=== PATIENT | female | born 1955 | race Hispanic/Latino ===

== ENCOUNTER 2017-09-02 21:42 | Emergency (ER) | payer OTHER ==
[2017-09-02] MEDS ORDERED: cloNIDine HCl 0.1 MG TAB ONE (22:45)
[2017-09-02] MEDS ORDERED: MAGNE/ALUM HYDROXD 30 ML UCUP ONE (22:51)
[2017-09-02] MEDS ORDERED: LIDOCAINE VISCOUS 2% SOLN 15 ML UDC ONE (22:52)
[2017-09-02 22:57] LABS: Absolute Monocytes 0.8 K/uL (0.1-1.3); Basophils % 0.9 % (0-1.3); Eosinophils % 3.4 % (0-4.4); Hematocrit 35.1 % (36.0-45.0); Lymphocytes % 29.4 % (15.3-44.8); MCH 32.1 pg (27.0-35.0); MCV 94.7 fL (80-100); Monocytes % 7.7 % (3.3-12.3); RBC Red Blood Cell Count 3.71 M/uL (3.86-4.86)
[2017-09-02 23:05] LABS: Bicarbonate 26 mEq/L (21-31); Glucose Level 147 mg/dL (65-120); Lipase 32 U/L (22-51); Potassium 3.7 mEq/L (3.6-5.0); Sodium Level 141 mEq/L (135-145)
[2017-09-02 23:11] LABS: ALT/SGPT 12 IU/L (10-60); AST/SGOT 18 IU/L (10-42); Albumin 3.4 g/dL (3.2-5.5); Alkaline Phosphatase 89 IU/L (42-121); BUN Blood Urea Nitrogen 15 mg/dL (6-20); Bilirubin Direct < 0.1 mg/dL (0-0.2); Bilirubin Total 0.4 mg/dL (0.3-1.2); Protein, Total 6.8 g/dL (6.0-8.3)
--- NOTE | 2017-09-02 23:43 | ER ---
Nurse's Notes [facility] Name: Dawn Rolle Age: 61 yrs Sex: Female : 1955 Arrival Date: 09/02/2017 Time: 21:43 Bed 20 Private MD: out of town, doctor Diagnosis: Cholelithiasis;Chest pain, unspecified;Gastro-esophageal reflux disease Presentation: 09/02 21:59 Presenting complaint: Patient states: Chest pain that began Friday, having episodes of lp1 chest pain for past 3 days; Pain worse today; Shortness of breath, dizziness. Transition of care: patient was not received from another setting of care. Onset of symptoms was September 02, 2017. Risk Assessment: Do you want to hurt yourself or someone else? Patient reports no desire to harm self or others. Initial Sepsis Screen: Does the patient meet any 2 criteria? No. Patient's initial sepsis screen is negative. Does the patient have a suspected source of infection? No. Patient's initial sepsis screen is negative. Care prior to arrival: None. 21:59 Method Of Arrival: Ambulatory lp1 21:59 Acuity: MECCA 3 lp1 Historical: - Allergies: 22:01 PENICILLINS; lp1 22:01 Codeine; lp1 22:01 Morphine; lp1 - Home Meds: 22:01 None [Active]; lp1 - PMHx: 22:01 Hypertension; Leukemia; lp1 - PSHx: 22:01 None; lp1 - Immunization history:: Adult Immunizations up to date. - Social history:: Smoking status: Patient uses tobacco products, smokes one-half pack cigarettes per day. - Ebola Screening: : No symptoms or risks identified at this time. - Family history:: not pertinent. - Hospitalizations: : No recent hospitalization is reported. Screenin:01 Abuse screen: Denies threats or abuse. Denies injuries from another. Nutritional lp1 screening: No deficits noted. Tuberculosis screening: No symptoms or risk factors identified. Fall Risk None identified. Assessment: 22:15 General: Appears in no apparent distress. uncomfortable, Behavior is calm, cooperative, jd3 appropriate for age. Pain: Complains of pain in chest Pain does not radiate. Quality of pain is described as aching, pressure, Pain began 2-3 days ago. Neuro: Level of Consciousness is awake, alert, obeys commands, Oriented to person, place, time, situation. Cardiovascular: Heart tones S1 S2 present Capillary refill < 3 seconds Patient's skin is warm and dry. Rhythm is regular. Respiratory: Airway is patent Respiratory effort is even, unlabored, Respiratory pattern is regular, symmetrical, Breath sounds are clear bilaterally. GI: Abdomen is round Bowel sounds present X 4 quads. : No signs and/or symptoms were reported regarding the genitourinary system. EENT: No signs and/or symptoms were reported regarding the EENT system. Derm: Skin is intact, Skin is dry, Skin is normal, Skin temperature is warm. Musculoskeletal: Circulation, motion, and sensation intact. Range of motion: intact in all extremities, Swelling present in right ankle and left ankle. 23:15 Reassessment: Patient appears in no apparent distress at this time. Patient and/or jd3 family updated on plan of care and expected duration. Pain level reassessed. Patient is alert, oriented x 3, equal unlabored respirations, skin warm/dry/pink. 09/03 00:20 Reassessment: Patient appears in no apparent distress at this time. Patient and/or jd3 family updated on plan of care and expected duration. Pain level reassessed. Patient is alert, oriented x 3, equal unlabored respirations, skin warm/dry/pink. pt reported understanding of discharge instructions, even and steady gait upon discharge. Patient states feeling better. Vital Signs: 09/02 22:00 BP 174 / 90; Pulse 80; Resp 18; Temp 99.1; Pulse Ox 98% on R/A; Weight 63.5 kg; Height lp1 5 ft. 3 in. (160.02 cm); Pain 9/10; 23:27 BP 147 / 76; Pulse 67; Resp 17 S; Pulse Ox 95% on R/A; jd3 09/03 00:22 BP 156 / 78; Pulse 66; Resp 16 S; Pulse Ox 96% on R/A; Pain 0/10; jd3 09/02 22:00 Body Mass Index 24.80 (63.50 kg, 160.02 cm) lp1 ED Course: 09/02 21:43 Patient arrived in ED. as 21:43 out of town, doctor is Private Physician. as 22:00 Triage completed. lp1 22:00 Arm band placed on right wrist. lp1 22:01 Patient maintains SpO2 saturation greater than 95% on room air. lp1 22:03 Dominic Healy MD is Attending Physician. rn 22:13 Jacob Haque, ROBERTO is Primary Nurse. jd3 22:33 Abdomen Limited In Process Unspecified. EDMS 22:35 Inserted saline lock: 20 gauge in right antecubital area, using aseptic technique. jd3 Blood collected. 22:40 X-ray completed. Portable x-ray completed in exam room. Patient tolerated procedure bb2 well. 22:41 XRAY Chest (1 view) In Process Unspecified. EDMS 23:27 Patient has correct armband on for positive identification. clinical research monitor on. Pulse jd3 ox on. NIBP on. 23:43 Reymundo Fuentes MD is Referral Physician. rn 09/03 00:24 No provider procedures requiring assistance completed. IV discontinued, intact, jd3 bleeding controlled, No redness/swelling at site. Pressure dressing applied. Administered Medications: 09/02 22:57 Drug: cloNIDine 0.1 mg Route: PO; jd3 09/03 00:25 Follow up: Response: No adverse reaction jd3 09/02 22:57 Drug: GI Cocktail without - (Maalox Suspension 30 ml, Lidocaine Liquid 2 % 15 jd3 ml) Route: PO; 09/03 00:26 Follow up: Response: No adverse reaction jd3 00:26 Follow up: Response: Pain is decreased jd3 Outcome: 09/02 23:43 Discharge ordered by . rn 09/03 00:24 Discharged to home ambulatory, with family. jd3 Condition: stable Discharge instructions given to patient, family, Instructed on discharge instructions, follow up and referral plans. Demonstrated understanding of instructions, follow-up care. 00:26 Patient left the ED. jd3 Signatures: Dispatcher [employer] Amisha Montenegro Roman, MD MD rn Pena, Laura, RN RN lp1 Jacob Haque, ROBERTO RN jd3 Isabelle Colin bb2
--- NOTE | 2017-09-02 23:44 | EDPHYS ---
Physician Documentation [facility] Name: Dawn Rolle Age: 61 yrs Sex: Female : 1955 Arrival Date: 09/02/2017 Time: 21:43 Bed 20 Private MD: out of town, doctor ED Physician Dominic Healy HPI: 09/02 22:39 This 61 yrs old Female presents to ER via Ambulatory with complaints of Chest rn Pain - x3 days. 22:39 The patient or guardian reports chest pain that is located primarily in the substernal rn area, epigastric area. Onset: 3 day(s) ago. The pain does not radiate. Associated signs and symptoms: Pertinent positives: abdominal pain, Pertinent negatives: cough, diaphoresis, dizziness, headache, lower extremity pain, lower extremity swelling, lightheadedness, nausea, near syncope, palpitations, shortness of breath, syncope, vomiting. The chest pain is described as dull, causing indigestion. Duration: The patient or guardian reports multiple episodes, that are intermittent, the episodes last approximately 1 minute(s). Modifying factors: The symptoms are alleviated by nothing. the symptoms are aggravated by swallowing. Severity of pain: At its worst the pain was moderate in the emergency department the pain has improved. The patient has experienced a previous episode. The patient has not recently seen a physician. Reports 3 days of intermittent chest pain, substernal/epigastric, worse when swallowing but happens other times as well, lasts for about 1 minute, no other radiation, no vomiting/diarrhea. Stopped taking her BP meds. . Historical: - Allergies: 22:01 PENICILLINS; lp1 22:01 Codeine; lp1 22:01 Morphine; lp1 - Home Meds: 22:01 None [Active]; lp1 - PMHx: 22:01 Hypertension; Leukemia; lp1 - PSHx: 22:01 None; lp1 - Immunization history:: Adult Immunizations up to date. - Social history:: Smoking status: Patient uses tobacco products, smokes one-half pack cigarettes per day. - Ebola Screening: : No symptoms or risks identified at this time. - Family history:: not pertinent. - Hospitalizations: : No recent hospitalization is reported. ROS: 22:39 Constitutional: Negative for fever, chills, and weight loss, Eyes: Negative for injury, rn pain, redness, and discharge, Neck: Negative for injury, pain, and swelling, Cardiovascular: Negative for palpitations, and edema, Respiratory: Negative for shortness of breath, cough, wheezing, and pleuritic chest pain, Abdomen/GI: Negative for nausea, vomiting, diarrhea, and constipation, MS/Extremity: Negative for injury and deformity, Skin: Negative for injury, rash, and discoloration, Neuro: Negative for headache, weakness, numbness, tingling, and seizure. Exam: 22:39 Constitutional: This is a well developed, well nourished patient who is awake, alert, rn and in no acute distress. Head/Face: Normocephalic, atraumatic. Eyes: Pupils equal round and reactive to light, extra-ocular motions intact. Lids and lashes normal. Conjunctiva and sclera are non-icteric and not injected. Cornea within normal limits. Periorbital areas with no swelling, redness, or edema. Neck: Trachea midline, no thyromegaly or masses palpated, and no cervical lymphadenopathy. Supple, full range of motion without nuchal rigidity, or vertebral point tenderness. No Meningismus. Cardiovascular: Regular rate and rhythm with a normal S1 and S2. No gallops, murmurs, or rubs. Normal PMI, no JVD. No pulse deficits. Respiratory: Lungs have equal breath sounds bilaterally, clear to auscultation and percussion. No rales, rhonchi or wheezes noted. No increased work of breathing, no retractions or nasal flaring. Abdomen/GI: Soft, non-tender, with normal bowel sounds. No distension or tympany. No guarding or rebound. No evidence of tenderness throughout. MS/ Extremity: Pulses equal, no cyanosis. Neurovascular intact. Full, normal range of motion. Equal circumference. Neuro: Awake and alert, GCS 15, oriented to person, place, time, and situation. Cranial nerves II-XII grossly intact. Motor strength 5/5 in all extremities. Sensory grossly intact. Cerebellar exam normal. Vital Signs: 22:00 BP 174 / 90; Pulse 80; Resp 18; Temp 99.1; Pulse Ox 98% on R/A; Weight 63.5 kg; Height lp1 5 ft. 3 in. (160.02 cm); Pain 9/10; 23:27 BP 147 / 76; Pulse 67; Resp 17 S; Pulse Ox 95% on R/A; jd3 09/03 00:22 BP 156 / 78; Pulse 66; Resp 16 S; Pulse Ox 96% on R/A; Pain 0/10; jd3 09/02 22:00 Body Mass Index 24.80 (63.50 kg, 160.02 cm) lp1 MDM: 09/02 22:03 Patient medically screened. rn 23:41 Differential diagnosis: acute myocardial infarction, acute pericarditis, anxiety, rn coronary artery disease cholecystitis, Cholelithiasis costochondritis, gastritis, gastroesophageal reflux disease (GERD), pancreatitis, peptic ulcer disease, pleurisy, pneumonia, pneumothorax. Data reviewed: vital signs, nurses notes, lab test result(s), EKG, radiologic studies, plain films, ultrasound, and as a result, I will discharge patient. Counseling: I had a detailed discussion with the patient and/or guardian regarding: the historical points, exam findings, and any diagnostic results supporting the discharge/admit diagnosis, lab results, radiology results, the need for outpatient follow up, to return to the emergency department if symptoms worsen or persist or if there are any questions or concerns that arise at home. Response to treatment: the patient's symptoms have markedly improved after treatment, and as a result, I will discharge patient. Special discussion: I discussed with the patient/guardian in detail that at this point there is no indication for admission to the hospital. It is understood, however, that if the symptoms persist or worsen the patient needs to return immediately for re-evaluation. Based on the history and exam findings, there is no indication for further emergent testing or inpatient evaluation. I discussed with the patient/guardian the need to see the shoe stitcher for further evaluation of the symptoms. I discussed with the patient/guardian the need to see the general surgeon for further evaluation of the symptoms. ED course: Pt improved, trop normal, ecg without ischemia or acute event, u/s shows large gallstone without signs of cholecystitis, normal LFT/Lipase, will dc home with OTC antacids, and GI and gen surg f/u. . 09/02 22:10 Order name: Basic Metabolic Panel; Complete Time: 23: rn 09/02 22:10 Order name: BNP; Complete Time: : rn 09/02 22:10 Order name: CBC with Diff; Complete Time: 23:19 rn 09/02 22:10 Order name: LFT's; Complete Time: 23:19 rn 09/02 22:10 Order name: Troponin (emerg Dept Use Only); Complete Time: 23:19 rn 09/02 22:10 Order name: Lipase; Complete Time: 23:19 rn 09/02 22:10 Order name: XRAY Chest (1 view) rn 09/02 22:10 Order name: EKG; Complete Time: 22:11 rn 09/02 22:10 Order name: Cardiac monitoring; Complete Time: 22:27 rn 09/02 22:10 Order name: EKG - Nurse/Tech; Complete Time: 22:39 rn 09/02 22:10 Order name: IV Saline Lock; Complete Time: :39 rn 09/02 22:11 Order name: US Abdomen Limited rn 09/02 22:10 Order name: Labs collected and sent; Complete Time: 22:39 rn 09/02 22:10 Order name: O2 Per Protocol; Complete Time: : rn 09/02 22:10 Order name: O2 Sat Monitoring; Complete Time: 22:27 rn Administered Medications: 22:57 Drug: cloNIDine 0.1 mg Route: PO; jd3 09/03 00:25 Follow up: Response: No adverse reaction j 09/02 22:57 Drug: GI Cocktail without - (Maalox Suspension 30 ml, Lidocaine Liquid 2 % 15 jd3 ml) Route: PO; 09/03 00:26 Follow up: Response: No adverse reaction jd3 00:26 Follow up: Response: Pain is decreased jd3 Disposition: 09/02/17 23:43 Discharged to Home. Impression: Cholelithiasis, Chest pain, unspecified, Gastro-esophageal reflux disease. - Condition is Stable. - Discharge Instructions: Nonspecific Chest Pain, Gastroesophageal Reflux Disease, Adult, Cholelithiasis. - Medication Reconciliation Form, Thank You Letter, Antibiotic Education, Prescription Opioid Use form. - Follow up: Reymundo Fuentes MD; When: As needed; Reason: Recheck today's complaints, Re-evaluation by your physician. - Problem is new. - Symptoms have improved. Signatures: Dispatcher [employer] EDMS Dominic Healy MD MD rn Pena, Laura, RN RN lp1 Haque, Jacob, RN RN jd3 Corrections: (The following items were deleted from the chart) 00:26 09/02 23:43 09/02/2017 23:43 Discharged to Home. Impression: Cholelithiasis; Chest jd3 pain, unspecified; Gastro-esophageal reflux disease. Condition is Stable. Forms are Medication Reconciliation Form, Thank You Letter, Antibiotic Education, Prescription Opioid Use. Follow up: Reymundo Fuentes; When: As needed; Reason: Recheck today's complaints, Re-evaluation by your physician. Problem is new. Symptoms have improved. rn
--- NOTE | 2017-09-03 07:34 | RAD REPORT ---
EXAM DESCRIPTION: US - Abdomen Exam Limited - 09/02/2017 10:32 pm CLINICAL HISTORY: Abdominal pain. COMPARISON: None. FINDINGS: The gallbladder is contracted containing stones. The gallbladder wall is not thickened. The biliary tree is normal caliber. IMPRESSION: Cholelithiasis without evidence of cholecystitis
--- NOTE | 2017-09-03 07:42 | EKG ---
Test Date: 2017-09-02 Test Time: 22:36:18 Gut Sorter: MEASUREMENT RESULTS: Intervals: Rate: 75 [place]: 96 QRSD: 86 QT: 392 QTc: 437 Angier: P: 31 NY: 96 QRS: 58 T: 44 INTERPRETIVE STATEMENTS: Sinus rhythm with short [place] Minimal voltage criteria for LVH, may be normal variant Nonspecific ST abnormality Abnormal ECG No previous ECG available for comparison Electronically Signed On 09-03-17 07:41:41 CDT by Luciano Dubon
--- NOTE | 2017-09-03 07:47 | RAD REPORT ---
EXAM DESCRIPTION: Mary Single View09/02/2017 10:43 pm CLINICAL HISTORY: Chest pain COMPARISON: 2013 FINDINGS: The lungs appear clear of acute infiltrate. The heart is normal size IMPRESSION: No acute abnormalities displayed
== END 2017-09-03 00:26 | disposition home or self-care (01) ==
LOC: ER 21:42
DX: K21.9 Gastro-esophageal reflux disease without esophagitis (principal); K80.20 Calculus of gallbladder without cholecystitis without obstruction; I10 Essential (primary) hypertension; F17.210 Nicotine dependence, cigarettes, uncomplicated; Z88.0 Allergy status to penicillin; Z88.5 Allergy status to narcotic agent
CPT/HCPCS: 36415; 71045; 76705; 80048; 80076; 83690; 83880; 84484; 85025; 93005; 99285

== ENCOUNTER 2017-09-22 10:10 | Day surgery (SDC) | payer OTHER ==
[2017-09-18 16:21] LABS: Absolute Lymphocytes (CBC) 2.8 K/uL (0.7-4.9); Absolute Monocytes 0.6 K/uL (0.1-1.3); Absolute Neutrophil 5.3 K/uL (1.8-8.0); Hematocrit 39.7 % (36.0-45.0); Lymphocytes % 31.1 % (15.3-44.8); MCH 31.6 pg (27.0-35.0); MCV 94.2 fL (80-100); MPV 10.2 fL (7.6-11.3); Monocytes % 6.2 % (3.3-12.3); RBC Red Blood Cell Count 4.22 M/uL (3.86-4.86)
[2017-09-18 16:37] LABS: Potassium 4.4 mEq/L (3.6-5.0)
[2017-09-18 16:43] LABS: ALT/SGPT 15 IU/L (10-60); AST/SGOT 22 IU/L (10-42); Alkaline Phosphatase 88 IU/L (42-121); Amylase Level 87 U/L (28-100); Bilirubin Direct < 0.1 mg/dL (0-0.2); Bilirubin Total 0.2 mg/dL (0.3-1.2); Lipase 40 U/L (22-51); Protein, Total 7.3 g/dL (6.0-8.3)
[2017-09-22] MEDS ORDERED: Ringers Lactate 1,000 ML IV ONE (10:33)
[2017-09-22] MEDS: BUPIVACAINE 0.5% Inj,MDV 50 mL VIAL ONE ×2 (11:21→12:17)
[2017-09-22] MEDS ORDERED: FENTANYL CITR 250 MCG/5 ML ONE (11:41)
[2017-09-22] MEDS ORDERED: MIDAZOLAM HCL 2 MG/2 ML INJ ONE (11:41)
[2017-09-22] MEDS ORDERED: ONDANSETRON HCL 40 MG/20 ML VIAL ONE (11:41)
[2017-09-22] MEDS ORDERED: LIDOCAINE 2% MPF 5 ML VIAL ONE (11:41)
[2017-09-22] MEDS ORDERED: ROCURONIUM 50 MG/5 ML VIAL IV ONE (11:41)
[2017-09-22] MEDS ORDERED: PROPOFOL 200 MG/20 ML VIAL IV ONE (11:41)
[2017-09-22] MEDS ORDERED: CIPROFLOXACIN 400mg IV 400 MG/200 ML BAG IV ONE (11:50)
[2017-09-22] MEDS ORDERED: GLYCOPYRROLATE 0.2 MG/ML SYR ONE ×2 (12:23→12:38)
[2017-09-22] MEDS ORDERED: KETOROLAC 30 MG/ML INJ ONE (12:30)
[2017-09-22] MEDS ORDERED: NEOSTIGMINE 1 MG/ML -5 ML SYRINGE ONE (12:38)
[2017-09-22] MEDS ORDERED: Mastisol Adhesive Liq ONE (12:39)
--- NOTE | 2017-09-22 13:05 | P.BOP ---
Preoperative diagnosis: acute cholecystitis, symptomatic cholelithiasis, UTI Postoperative diagnosis: same Primary procedure: Laparoscopic cholecystectomy Mainframe Consultant: Celi Singleton) Estimated blood loss: <10cc Specimen: gb Findings: as above Anesthesia: General Transferred to: Recovery Room Condition: Good
[2017-09-22] MEDS: MEPERIDINE HCL 25 MG/0.5 ML ONE ×2 (13:24→13:29)
[2017-09-22] MEDS ORDERED: TRAMADOL 37.5mg/APAP 325mg PER TAB ONE (14:05)
--- NOTE | 2017-09-23 00:32 | OP ---
Date of Procedure: 09/22/2017 Surgeon: Adryan Lantigua MD Gore Seamer: NICK Roberts. Preoperative Diagnoses: 1.Acute cholecystitis. 2.Symptomatic cholelithiasis. 3.Urinary tract infection. 4.Chronic creatinine elevation. Postoperative Diagnoses: 1.Acute cholecystitis. 2.Symptomatic cholelithiasis. 3.Urinary tract infection. 4.Chronic creatinine elevation. Procedure Performed: Laparoscopic cholecystectomy. Estimated Blood Loss: Less than 10 cc. Specimen: Gallbladder. Findings: As above. Anesthesia: General plus local. Indications: This is a case of a 61-year-old patient with multiple medical problems. One of them paulson ppened to be also acute cholecystitis with symptomatic cholelithiasis, with many right upper quadrant attacks. So, we offered her laparoscopic, possible open cholecystectomy with benefits, alternatives , and risks including, but not limited to infection, bleeding, damage to adjacent structures, anesthe soumya complications, choledocholithiasis, bile leak, pancreatitis, NC, and even . She also unders tands this may not relieve any symptoms. She might need more than one surgical intervention. As par t of the workup, we also found the patient to have a UTI and also increased creatinine, and I encoura ged her once again as soon as possible to follow with her primary doctor to try to address and unders tand the reasons for it. She understands. She signed a consent. Description Of Procedure: The patient was brought to the operating room, placed in supine position. Anesthesia was done without complication. Abdominal area was prepped and draped in a sterile fashio n. A time-out was called. An incision was made in the infraumbilical region. Incision was carried down to fascia, which was opened under direct vision. Peritoneum was encountered, opened under direc t vision. Vicryl #1 was placed inside the fascia. Francie trocar was carefully introduced. Pneumope ritoneum was obtained. I placed 3 more trocars, 5 mm each one of them, in the right upper quadrant u nder direct visualization. This allowed me to put a grasper in the fundus of the gallbladder, anothe r grasper in the infundibulum, retracted the gallbladder in an inferolateral fashion exposing the tri angle of Calot. The cystic duct and cystic artery were clearly isolated free circumferentially, and a connection between those and the gallbladder was clearly identified. I proceeded to ligate those b y using at least 3 clips proximal, 1 clip distal, ligation in middle. Same was done with the cystic artery. There was a tiny branch of the cystic artery also there. It was also ligated. The hepatic artery was identified and protected at all times. The common bile duct was protected at all times. Gallbladder was removed from the liver using Bovie cauterizer and removed from abdominal cavity using EndoCatch through the umbilical incision. The area was inspected once again. Clips were intact. N o bile leak. No bleeding. Gallbladder fossa with no bleeding. At that moment, I proceeded to remov e the trocars under direct vision, deflated pneumoperitoneum, closed the fascia with #1 Vicryl, irrig ated subcutaneous tissue, closed that with 3-0 chromic, and the skin was closed in a subcuticular fas hion with Steri-Strips on top. Sponge counts and instrument counts were correct. The patient tolera meenakshi the procedure well. The patient was sent to recovery in stable condition. TONEY/CUAUHTEMOC Voice ID: [id number] Report ID: [id number]
--- NOTE | 2017-09-23 00:47 | DS ---
Date of Discharge: 09/22/2017 Diagnoses: 1.Acute cholecystitis. 2.Symptomatic cholelithiasis. 3.Urinary tract infection. 4.Increased renal creatinine. Procedure: Laparoscopic cholecystectomy. Disposition: Home. Activity: As tolerated. No heavy lifting. Followup: Follow up in my office in 1 week. Call for appointment at [phone]. Keep area dry for 48 hours, then may shower. Keep Steri-Strips intact. Medications: Ultracet q.4 hours p.r.n. pain. She was encouraged to follow up with her primary doctor for her UTI and creatinine elevation that we noticed . She understood. TONEY/CUAUHTEMOC Voice ID: [id number] Report ID: [id number]
== END 2017-09-22 15:21 | disposition home or self-care (01) ==
LOC: OR 10:10
PROVIDERS: ATTEND Surgery
PROC: 0FT44ZZ Resection of Gallbladder, Percutaneous Endoscopic Approach (ICD-10-PCS; principal; 2017-09-22 11:45)
DX: K80.12 Calculus of gallbladder with acute and chronic cholecystitis without obstruction (principal); N39.0 Urinary tract infection, site not specified; R94.4 Abnormal results of kidney function studies; I10 Essential (primary) hypertension; K21.9 Gastro-esophageal reflux disease without esophagitis; F17.200 Nicotine dependence, unspecified, uncomplicated; Z88.0 Allergy status to penicillin; Z88.6 Allergy status to analgesic agent; Z80.9 Family history of malignant neoplasm, unspecified; Z83.3 Family history of diabetes mellitus; Z82.49 Family history of ischemic heart disease and other diseases of the circulatory system
CPT/HCPCS: 36415; 80048; 80076; 82150; 83690; 85025; 88304; 93005; J0744; J2175; J2250; J2405; J2710

== ENCOUNTER 2018-03-18 08:44 | Day surgery (SDC) | payer OTHER ==
[2018-03-18] MEDS ORDERED: NA CHLORIDE 0.9% 1,000 ML ONE (09:27)
[2018-03-18] MEDS ORDERED: MIDAZOLAM HCL 2 MG/2 ML INJ ONE (09:58)
[2018-03-18] MEDS ORDERED: FENTANYL CITR 100 MCG/2 ML ONE (09:58)
[2018-03-18 10:02] LABS: Potassium 5.2 mmol/L (3.5-5.1)
--- NOTE | 2018-03-18 10:48 | RAD REPORT ---
EXAM DESCRIPTION: US - Biopsy Renal - 03/18/2018 10:17 am CLINICAL HISTORY: HEMATURIA COMPARISON: No comparisons FINDINGS: Preoperative diagnosis: Hematuria, flank pain. Post operative diagnosis: Same. Conscious Sedation: IV conscious sedation for 45 minutes utilizing fentanyl and midazolam was utilize d, with nursing personnel monitoring. Fluoroscopy time: None Contrast used: None Estimated blood loss: Minimal Specimens:3 x 18 gauge core 2 cm samples. The left flank was prepped and draped in the usual sterile fashion. 1% lidocaine was infiltrated into the subcutaneous tissues for local anesthesia. Real time ultrasound scanning of the left kidney demo nstrated suitable sonographic window to the inferior pole. Under ultrasound guidance, using a 18-gaug e, 16 cm long, 2 cm throw core biopsy gun, 3 specimens were obtained of this lesion and sent to patho logy for evaluation. There were no complications. IMPRESSION: Successful ultrasound-guided nonfocal left renal biopsy. 45 minutes of IV conscious sedation utilizing nursing personnel monitoring.
[2018-03-18] MEDS ORDERED: TRAMADOL HCL 50 MG TAB ONE (11:19)
== END 2018-03-18 13:20 | disposition home or self-care (01) ==
LOC: DS 08:44
PROVIDERS: ATTEND Internal Medicine Nephrology
PROC: 0TB13ZX Excision of Left Kidney, Percutaneous Approach, Diagnostic (ICD-10-PCS; principal; 2018-03-18)
PROC: BT42ZZZ Ultrasonography of Left Kidney (ICD-10-PCS; 2018-03-18)
DX: N04.9 Nephrotic syndrome with unspecified morphologic changes (principal); R31.9 Hematuria, unspecified; N26.9 Renal sclerosis, unspecified; N05.8 Unspecified nephritic syndrome with other morphologic changes; N19 Unspecified kidney failure
CPT/HCPCS: 36415; 50200; 80048; 88300; 88305; J2250; J3010; J7030

== ENCOUNTER 2018-09-11 12:19 | Emergency (ER) | payer OTHER ==
[2018-09-11 13:18] LABS: Absolute Lymphocytes (CBC) 2.7 K/uL (0.7-4.9); Absolute Monocytes 0.6 K/uL (0.1-1.3); Absolute Neutrophil 3.3 K/uL (1.8-8.0); Basophils % 1.1 % (0-1.3); Eosinophils % 3.8 % (0-4.4); Hematocrit 33.6 % (36.0-45.0); Lymphocytes % 39.2 % (15.3-44.8); MPV 9.7 fL (7.6-11.3); Monocytes % 8.4 % (3.3-12.3); RBC Red Blood Cell Count 3.41 M/uL (3.86-4.86)
[2018-09-11 13:28] LABS: Albumin 3.7 g/dL (3.4-5.0); Bilirubin Direct 0.1 mg/dL (0-0.2); Bilirubin Total 0.4 mg/dL (0.2-1.0); Potassium 5.1 mmol/L (3.5-5.1); Protein, Total 7.4 g/dL (6.4-8.2)
[2018-09-11 13:35] LABS: Urine Blood 2+ (NEG); Urine Glucose TRACE (NEG); Urine Protein 3+ (NEG); Urine pH 5.5 (5.0-7.0)
--- NOTE | 2018-09-11 13:54 | ER ---
Nurse's Notes [facility] Name: Dawn Rolle Age: 62 yrs Sex: Female : 1955 Arrival Date: 09/11/2018 Time: 12:23 Bed 23 Private MD: Diagnosis: Person with feared health complaint in whom no diagnosis is made Presentation: 09/11 12:29 Presenting complaint: Patient states: Sent by PCP for protein in urine and high ss potassium. Pt reports she had outpatient labs obtained this morning. Transition of care: patient was not received from another setting of care. Onset of symptoms is unknown. Risk Assessment: Do you want to hurt yourself or someone else? Patient reports no desire to harm self or others. Initial Sepsis Screen: Does the patient meet any 2 criteria? No. Patient's initial sepsis screen is negative. Does the patient have a suspected source of infection? No. Patient's initial sepsis screen is negative. Care prior to arrival: None. 12:29 Method Of Arrival: Ambulatory ss 12:29 Acuity: MECCA 2 ss Historical: - Allergies: 12:31 PENICILLINS; ss 12:31 Morphine; ss 12:31 Codeine; ss - PMHx: 12:31 Hypertension; Leukemia; Kidney stones; ss - PSHx: 12:31 Cholecystectomy; ss - Immunization history:: Adult Immunizations up to date. - Social history:: Smoking status: Patient uses tobacco products, smokes one-half pack cigarettes per day. - Ebola Screening: : Patient denies exposure to infectious person Patient denies travel to an Ebola-affected area in the 21 days before illness onset. Screenin:00 Abuse screen: Denies threats or abuse. Denies injuries from another. Nutritional ca1 screening: No deficits noted. Tuberculosis screening: No symptoms or risk factors identified. Fall Risk None identified. Assessment: 13:00 General: Appears in no apparent distress. comfortable, Behavior is calm, cooperative, ca1 appropriate for age. Pain: Denies pain. Neuro: Level of Consciousness is awake, alert, obeys commands, Oriented to person, place, time, situation. Cardiovascular: Heart tones S1 S2 present Capillary refill < 3 seconds Patient's skin is warm and dry. Rhythm is sinus rhythm. Respiratory: Airway is patent Respiratory effort is even, unlabored, Respiratory pattern is regular, symmetrical, Breath sounds are clear bilaterally. GI: Abdomen is round non-distended, Bowel sounds present X 4 quads. Abd is soft and non tender X 4 quads. : No deficits noted. No signs and/or symptoms were reported regarding the genitourinary system. Urine is clear. EENT: No deficits noted. No signs and/or symptoms were reported regarding the EENT system. Derm: Skin is intact, is healthy with good turgor, Skin is pink, warm \T\ dry. Musculoskeletal: Circulation, motion, and sensation intact. Capillary refill < 3 seconds, Range of motion: intact in all extremities. 14:00 Reassessment: Patient appears in no apparent distress at this time. Patient and/or ca1 family updated on plan of care and expected duration. Pain level reassessed. Patient is alert, oriented x 3, equal unlabored respirations, skin warm/dry/pink. 14:31 Reassessment: Patient appears in no apparent distress at this time. Patient is alert, ca1 oriented x 3, equal unlabored respirations, skin warm/dry/pink. Family at bedside. Vital Signs: 12:31 BP 157 / 82; Pulse 82; Resp 16; Temp 97.9(O); Pulse Ox 97% on R/A; Weight 63.05 kg; ss Height 5 ft. 3 in. (160.02 cm); Pain 0/10; 13:00 BP 169 / 79; Pulse 79; Resp 19 S; Temp 98(O); Pulse Ox 97% on R/A; ca1 13:45 BP 163 / 82; Pulse 75; Resp 15 S; Pulse Ox 98% on R/A; ca1 14:31 BP 152 / 69; Pulse 68; Resp 16 S; Temp 98.1(O); Pulse Ox 99% on R/A; ca1 12:31 Body Mass Index 24.62 (63.05 kg, 160.02 cm) ED Course: 12:23 Patient arrived in ED. mr 12:30 Triage completed. ss 12:31 Arm band placed on right wrist. ss 12:33 Abdirashid Queen NP is PHCP. pm1 12:33 Dominic Healy MD is Attending Physician. pm1 12:53 Idalmis Moore RN is Primary Nurse. ca1 12:59 EKG done, by electrical engineering technologist. reviewed by Abdirashid Queen NP. at1 13:00 Patient has correct armband on for positive identification. Placed in gown. Bed in low ca1 position. Call light in reach. Side rails up X 1. technical support specialist on. Pulse ox on. NIBP on. Warm blanket given. 13:04 No provider procedures requiring assistance completed. Inserted saline lock: 20 gauge ca1 in right forearm, using aseptic technique. Blood collected. 14:32 IV discontinued, intact, bleeding controlled, No redness/swelling at site. Pressure ca1 dressing applied. Administered Medications: No medications were administered Outcome: 13:53 Discharge ordered by MD. pm1 14:32 Discharged to home ambulatory, with family. ca1 14:32 Condition: stable 14:32 Discharge instructions given to patient, Instructed on discharge instructions, follow up and referral plans. Demonstrated understanding of instructions, follow-up care, Copies of testes given. Instructed on high on K food to avoid as of this time. Verbalized understanding of instructions. 14:33 Patient left the ED. ca1 Signatures: Sallie Pickering Shelby, RN RN ss Perla Rodriguez, housing inspector EKG Tat1 Abdirashid Queen NP BAG BUNDLER pm1 Idalmis Moore RN RN ca1
--- NOTE | 2018-09-11 13:54 | EDPHYS ---
Physician Documentation [facility] Name: Dawn Rolle Age: 62 yrs Sex: Female : 1955 Arrival Date: 09/11/2018 Time: 12:23 Bed 23 Private MD: ED Physician Dominic Healy HPI: 09/11 12:52 This 62 yrs old Female presents to ER via Ambulatory with complaints of pm1 Abnormal Lab Results. 12:52 Patient had labs drawn today and was instructed to report to the ER for evaluation and pm1 treatment due to elevated K and protein in her urine. Patient without any complaints or symptoms. Onset: The symptoms/episode began/occurred today. Severity of symptoms: Pain is currently a 0 / 10. The patient has not experienced similar symptoms in the past. The patient has been recently seen by a physician: Dr. Mejias. Historical: - Allergies: 12:31 PENICILLINS; ss 12:31 Morphine; ss 12:31 Codeine; ss - PMHx: 12:31 Hypertension; Leukemia; Kidney stones; ss - PSHx: 12:31 Cholecystectomy; ss - Immunization history:: Adult Immunizations up to date. - Social history:: Smoking status: Patient uses tobacco products, smokes one-half pack cigarettes per day. - Ebola Screening: : Patient denies exposure to infectious person Patient denies travel to an Ebola-affected area in the 21 days before illness onset. ROS: 12:52 Constitutional: Negative for fever, chills, and weight loss, Eyes: Negative for injury, pm1 pain, redness, and discharge, ENT: Negative for injury, pain, and discharge, Neck: Negative for injury, pain, and swelling, Cardiovascular: Negative for chest pain, palpitations, and edema, Respiratory: Negative for shortness of breath, cough, wheezing, and pleuritic chest pain, Abdomen/GI: Negative for abdominal pain, nausea, vomiting, diarrhea, and constipation, Back: Negative for injury and pain, : Negative for injury, bleeding, discharge, and swelling, MS/Extremity: Negative for injury and deformity, Skin: Negative for injury, rash, and discoloration, Neuro: Negative for headache, weakness, numbness, tingling, and seizure. Exam: 12:52 Constitutional: This is a well developed, well nourished patient who is awake, alert, pm1 and in no acute distress. Head/Face: Normocephalic, atraumatic. Eyes: Pupils equal round and reactive to light, extra-ocular motions intact. Lids and lashes normal. Conjunctiva and sclera are non-icteric and not injected. Cornea within normal limits. Periorbital areas with no swelling, redness, or edema. ENT: Nares patent. No nasal discharge, no septal abnormalities noted. Tympanic membranes are normal and external auditory canals are clear. Oropharynx with no redness, swelling, or masses, exudates, or evidence of obstruction, uvula midline. Mucous membranes moist. Neck: Trachea midline, no thyromegaly or masses palpated, and no cervical lymphadenopathy. Supple, full range of motion without nuchal rigidity, or vertebral point tenderness. No Meningismus. Chest/axilla: Normal chest wall appearance and motion. Nontender with no deformity. No lesions are appreciated. Cardiovascular: Regular rate and rhythm with a normal S1 and S2. No gallops, murmurs, or rubs. Normal PMI, no JVD. No pulse deficits. Respiratory: Lungs have equal breath sounds bilaterally, clear to auscultation and percussion. No rales, rhonchi or wheezes noted. No increased work of breathing, no retractions or nasal flaring. Abdomen/GI: Soft, non-tender, with normal bowel sounds. No distension or tympany. No guarding or rebound. No evidence of tenderness throughout. Back: No spinal tenderness. No costovertebral tenderness. Full range of motion. Skin: Warm, dry with normal turgor. Normal color with no rashes, no lesions, and no evidence of cellulitis. MS/ Extremity: Pulses equal, no cyanosis. Neurovascular intact. Full, normal range of motion. 12:52 Neuro: Orientation: is normal, Motor: is normal, moves all fours, Sensation: is normal, no obvious gross deficits, Gait: is steady, at a normal pace, without difficulty. Vital Signs: 12:31 BP 157 / 82; Pulse 82; Resp 16; Temp 97.9(O); Pulse Ox 97% on R/A; Weight 63.05 kg; ss Height 5 ft. 3 in. (160.02 cm); Pain 0/10; 13:00 BP 169 / 79; Pulse 79; Resp 19 S; Temp 98(O); Pulse Ox 97% on R/A; ca1 13:45 BP 163 / 82; Pulse 75; Resp 15 S; Pulse Ox 98% on R/A; ca1 14:31 BP 152 / 69; Pulse 68; Resp 16 S; Temp 98.1(O); Pulse Ox 99% on R/A; ca1 12:31 Body Mass Index 24.62 (63.05 kg, 160.02 cm) MDM: 12:33 Patient medically screened. pm1 13:52 Data reviewed: vital signs. Data interpreted: Pulse oximetry: on room air is 97 %. pm1 Interpretation: normal. Counseling: I had a detailed discussion with the patient and/or guardian regarding: the historical points, exam findings, and any diagnostic results supporting the discharge/admit diagnosis, lab results, the need for outpatient follow up, to return to the emergency department if symptoms worsen or persist or if there are any questions or concerns that arise at home. 14:01 Physician consultation: Nephrology Claudia was called at 13:55, was contacted at pm1 14:00, regarding patient's condition, Potassium is high end of normal. Renal function at baseline. Possibly due to ARB. He recommends patient hold her ARB, losartan, until follow up in the office in 1-2 weeks for repeat labs and reevaluation. Covering for Dr. Mejias. 09/11 12:45 Order name: CBC with Diff; Complete Time: 13:46 pm09/11 12:45 Order name: BMP; Complete Time: 13:46 pm1 09/11 12:36 Order name: EKG; Complete Time: 12:37 09/11 12:36 Order name: EKG - Nurse/Tech; Complete Time: 13:09 09/11 12:45 Order name: Hepatic Function; Complete Time: 13:46 pm09/11 13:16 Order name: Urine Dipstick--Ancillary (enter results); Complete Time: 13:46 09/11 12:45 Order name: Urine Dipstick-Ancillary (obtain specimen); Complete Time: 13:09 pm09/11 12:45 Order name: IV Saline Lock; Complete Time: 13:09 pm1 EC:51 Rate is 66 beats/min. Rhythm is regular. QRS [place] is Normal. No Q waves. T waves are pm1 Normal. No ST changes noted. Clinical impression: Normal ECG. Administered Medications: No medications were administered Disposition: 15:12 Co-signature as Attending Physician, Dominic Healy MD. rn Disposition: 09/11/18 13:53 Discharged to Home. Impression: Person with feared health complaint in whom no diagnosis is made. - Condition is Stable. - Discharge Instructions: Hyperkalemia. - Medication Reconciliation Form, Thank You Letter, Antibiotic Education, Prescription Opioid Use form. - Follow up: Emergency Department; When: As needed; Reason: Worsening of condition. Follow up: Private Physician; When: 2 - 3 days; Reason: Recheck today's complaints, Continuance of care, Re-evaluation by your physician. - Problem is new. - Symptoms have improved. Signatures: Dispatcher [employer] EDMS Dominic Healy MD MD rn Carmen Aguirre RN RN ss Abdirashid Queen, SALES AND MARKETING ASSISTANT SALES AND MARKETING ASSISTANT pm1 Idalmis Moore RN RN ca1 Corrections: (The following items were deleted from the chart) 14:33 13:53 09/11/2018 13:53 Discharged to Home. Impression: Person with feared health ca1 complaint in whom no diagnosis is made. Condition is Stable. Forms are Medication Reconciliation Form, Thank You Letter, Antibiotic Education, Prescription Opioid Use. Follow up: Emergency Department; When: As needed; Reason: Worsening of condition. Follow up: Private Physician; When: 2 - 3 days; Reason: Recheck today's complaints, Continuance of care, Re-evaluation by your physician. Problem is new. Symptoms have improved. pm1
--- NOTE | 2018-09-12 09:04 | EKG ---
Test Date: 2018-09-11 Test Time: 12:51:51 Test Engineering Manager: REGI MEASUREMENT RESULTS: Intervals: Rate: 66 IN: 124 QRSD: 80 QT: 384 QTc: 402 Mikana: P: 42 IN: 124 QRS: 37 T: 21 INTERPRETIVE STATEMENTS: Normal sinus rhythm Normal ECG Compared to ECG 12/03/2017 13:38:09 ST (T wave) deviation no longer present Electronically Signed On 09-12-18 09:01:01 CDT by Mian Talbert
== END 2018-09-11 14:33 | disposition home or self-care (01) ==
LOC: ER 12:19
DX: Z71.1 Person with feared health complaint in whom no diagnosis is made (principal); Z88.5 Allergy status to narcotic agent; Z88.0 Allergy status to penicillin; I10 Essential (primary) hypertension; F17.210 Nicotine dependence, cigarettes, uncomplicated
CPT/HCPCS: 36415; 80048; 80076; 81003; 85025; 93005; 99284

== ENCOUNTER 2019-06-09 08:22 | Day surgery (SDC) | payer OTHER ==
[2019-06-08 09:59] LABS: Absolute Lymphocytes (CBC) 2.8 K/uL (0.7-4.9); Basophils % 0.9 % (0-1.3); Hematocrit 34.2 % (36.0-45.0); Lymphocytes % 29.2 % (15.3-44.8); MPV 9.5 fL (7.6-11.3); RBC Red Blood Cell Count 3.51 M/uL (3.86-4.86)
[2019-06-08 10:19] LABS: Potassium 4.5 mmol/L (3.5-5.1)
--- NOTE | 2019-06-08 10:35 | RAD REPORT ---
EXAM DESCRIPTION: [place] (2 Views)06/08/2019 10:06 am CLINICAL HISTORY: Cough/preop COMPARISON: 2018 FINDINGS: The lungs appear clear of acute infiltrate. The heart is normal size IMPRESSION: No acute abnormalities displayed
--- NOTE | 2019-06-08 12:21 | EKG ---
Test Date: 2019-06-08 Test Time: 09:31:52 Irrigation Supervisor: KEEGAN MEASUREMENT RESULTS: Intervals: Rate: 64 IA: 138 QRSD: 90 QT: 404 QTc: 416 [place]: P: 25 IA: 138 QRS: 49 T: 37 INTERPRETIVE STATEMENTS: Normal sinus rhythm Normal ECG Compared to ECG 09/11/2018 12:51:51 No significant changes Electronically Signed On 06-08-19 12:21:16 BREAKDOWN MAN by Mian Talbert
[2019-06-09] MEDS ORDERED: Ringers Lactate 1,000 ML IV ONE (08:41)
[2019-06-09] MEDS: CIPROFLOXACIN 400mg IV 400 MG/200 ML BAG IV ONE ×2 (11:07→12:07)
[2019-06-09] MEDS ORDERED: FENTANYL CITR 100 MCG/2 ML ONE (11:18)
[2019-06-09] MEDS ORDERED: propofoL 200 MG/20 ML VIAL IV ONE (11:18)
[2019-06-09] MEDS ORDERED: MIDAZOLAM HCL 2 MG/2 ML INJ ONE (11:18)
[2019-06-09] MEDS ORDERED: LIDOCAINE 2% MPF 5 ML VIAL ONE (11:19)
[2019-06-09] MEDS ORDERED: ONDANSETRON 4 MG/2 ML VIAL ONE (11:42)
--- NOTE | 2019-06-09 12:56 | P.BOP ---
Preoperative diagnosis: perianal masses Postoperative diagnosis: same Primary procedure: EUA, anoscopy, rigid proctoscopy Secondary procedure: Wide excision of multiple perianal masses 7x5cm Estimated blood loss: <5cc Specimen: Multiple masses, cant r/o condyloma Findings: as above Anesthesia: General Complications: None Transferred to: Recovery Room Condition: Good
[2019-06-09] MEDS ORDERED: MEPERIDINE HCL 50 MG/ML ONE (13:24)
[2019-06-09 15:23] VITALS: TEMP 97.3; O2SAT 100
[2019-06-09 15:30] VITALS: BP 130/52
--- NOTE | 2019-06-10 00:39 | OP ---
Date of Procedure: 06/09/2019 Surgeon: Adryan Lantigua MD Preoperative Diagnosis: Perianal masses. Postoperative Diagnosis: Perianal masses. Procedure: Examination under anesthesia, anoscopy, rigid proctoscopy, wide excision of multiple rico anal masses in area of about 7 x 5 cm. Estimated Blood Loss: Less than 5 mL. Specimen: Multiple masses, cannot rule out condyloma. Anesthesia: General plus local. Indications: This is the case of a 63-year-old patient, who comes to us with multiple perianal shayy s giving her pain and discomfort. She wants it excised. Benefits and risks of excision fully explai angela, which include, but are not limited to infection, bleeding, damage to adjacent structures, anesth etic complication, recurrence, KS, and even . She also understands that this may not relieve an y symptoms, she might need more than one surgical intervention. She understood, signed a consent. W e identified the OR the possibility of a condyloma, so they took the necessary measures to protect th e patient and the employees. Description Of Procedure: Patient was brought to the operating room, placed in supine position. Ane sthesia was given without complication. Patient was placed in a lithotomy position with proper prote ction. Rigid proctoscopy was done and we looked up to the area of 15 cm. We did not see rectal lesi ons on her. Then, we did an anoscope with a window on the side once again to check the anal canal, m ost of her lesions were outside. Anoscope was removed and then, after that, using the knife and a Tae vie cauterizer, we proceeded to remove multiple lesions from the area, when we get all the areas toge ther it is about 7 x 5 cm. Area was cauterized after that, left to heal by secondary intention with triple antibiotics on it. Local anesthesia was applied over the area. This was surrounding the enti re perianal region. Patient tolerated the procedure well. Patient was sent to recovery in stable co ndition. TONEY/CUAUHTEMOC Voice ID: [id number] Report ID: [id number]
--- NOTE | 2019-06-10 00:46 | DS ---
Date of Discharge: 06/09/2019 Diagnosis: Perianal masses. Procedure: EUA, anoscopy, rigid proctoscopy, wide excision of multiple perianal masses. Disposition: Home. Activity: As tolerated. No heavy lifting. Followup: Follow up in my office in 1 week. Call for appointment at [phone]. She has allergies to codeine and morphine, but she does not have any allergies to Ultracet, so we prescribed that medicat ion for her and advised once again if she develops any symptoms, call 911 and come to the ER immediat crystal. She did agree. sitz baths 4 times a day and after every bowel movement. TONEY/CUAUHTEMOC Voice ID: [id number] Report ID: [id number]
== END 2019-06-09 14:35 | disposition home or self-care (01) ==
LOC: OR 08:22
PROVIDERS: ATTEND Surgery
PROC: 0DBQ0ZX Excision of Anus, Open Approach, Diagnostic (ICD-10-PCS; 2019-06-09)
PROC: 0DJD8ZZ Inspection of Lower Intestinal Tract, Via Natural or Artificial Opening Endoscopic (ICD-10-PCS; principal; 2019-06-09 12:45)
DX: A63.0 Anogenital (venereal) warts (principal); I10 Essential (primary) hypertension; F17.210 Nicotine dependence, cigarettes, uncomplicated; Z86.010 Personal history of colon polyps; Z88.0 Allergy status to penicillin; Z88.6 Allergy status to analgesic agent; Z80.9 Family history of malignant neoplasm, unspecified; Z82.49 Family history of ischemic heart disease and other diseases of the circulatory system; Z83.3 Family history of diabetes mellitus
CPT/HCPCS: 45300; 46922; 93005; 85025; 80048; 36415; 88305; 71046; J2704; J2250; J3010; J2175; J7120; J2405; J0744

== ENCOUNTER 2020-02-18 09:21 | Observation (INO) | payer OTHER ==
--- OUTSIDE RECORDS SUMMARY | 2020-02-18 09:33 | XMS REPORT | Continuity of Care Document ---
:1955 Author Organization [facility] t Address [address] Herrera [address] [place] [id number] Care Team Providers Name Role Phone Unavailable Unavailable Unavailable Problems This patient has no known problems. Allergies, Adverse Reactions, Alerts This patient has no known allergies or adverse reactions. Medications This patient has no known medications. Procedures This patient has no known procedures. Encounters Start End Encounter Admission Attending Care Care Encounter Source Date/Time Date/Time Type Type Clinicians Facility Department ID 2020-01-27 2020-01-27 Outpatient [id number] 10:12:00 10:12:00 Results This patient has no known results.
[2020-02-18 10:42] LABS: Urine Appearance CLEAR; Urine Bilirubin NEGATIVE (NEG); Urine Blood 2+ (NEG); Urine Color YELLOW; Urine Glucose NEGATIVE (NEG); Urine Protein 3+ (NEG); Urine Urobilinogen 0.2 mg/dL (0.2-1.0)
[2020-02-18 10:43] LABS: Absolute Lymphocytes (CBC) 2.2 K/uL (0.7-4.9); Basophils % 0.9 % (0-1.3); Hematocrit 35.3 % (36.0-45.0); Lymphocytes % 30.8 % (15.3-44.8); MPV 9.6 fL (7.6-11.3); RBC Red Blood Cell Count 3.57 M/uL (3.86-4.86)
[2020-02-18 11:03] LABS: Albumin 4.2 g/dL (3.4-5.0); Phosphorus 5.2 mg/dL (2.5-4.9); Potassium 5.5 mmol/L (3.5-5.1); Uric Acid 10.6 mg/dL (2.6-6.0)
[2020-02-18 11:08] LABS: Urine Microscopic Reflex ORDER UMIC
[2020-02-18 12:05] LABS: Urine Bacteria 20-50 /HPF (<20); Urine Culture Reflex Order REFLEXED; Urine Yeast MANY (NONE SEEN)
[2020-02-21 16:44] VITALS: BMI 24.6
[2020-02-21 16:51] LABS: Arterial Blood Carboxyhemoglob 3.1 % (0-1.5); Blood Gas Oxyhemoglobin 93.3 % (94-97); Blood O2 Saturation 97.6 % (92-98.5)
--- NOTE | 2020-02-21 17:28 | RAD REPORT ---
EXAM DESCRIPTION: CT - Stone Protocol - 02/21/2020 5:18 pm CLINICAL HISTORY: Flank pain. hyperkalemia COMPARISON: Stone Protocol dated 10/22/2017; Renal Ultrasound-Complete dated 06/17/2019 TECHNIQUE: Axial images were obtained without oral or IV contrast. Lack of contrast limits solid org an and vascular assessment. The [id number] spans the entirety of the system partially obscuring uppermost abdomen and lung bases. Coronal reformatted images were obtained and reviewed. All CT scans are performed using dose optimization technique as appropriate and may include automated exposure control or mA/KV adjustment according to patient size. FINDINGS: The lower lung cantu are clear. Cholecystectomy clips. Imaged portions of the liver and spleen show no suspicious findings on non-contrast imaging.3.5 cm li jose cyst is present right lobe posteriorly. 1 cm left lobe liver cysts noted, benign in appearance. T he pancreas and adrenal glands are normal. No pathologic lymphadenopathy in the abdomen or pelvis. No urinary tract stones or obstructive uropathy. 15 mm cyst is present cortex right kidney. Small cys t measuring 8 mm noted inferior anterior cortex left kidney. No bowel obstruction, free air, free fluid or abscess. Normal appendix noted. No significant bony abnormality. IMPRESSION: No urinary tract stones or obstructive uropathy.
[2020-02-21] MEDS: NA CHLORIDE 0.9% 1,000 ML IV SCH (17:59)
[2020-02-21 19:45] LABS: Basophils % 0.8 % (0-1.3); Hematocrit 31.9 % (36.0-45.0); Lymphocytes % 36.4 % (15.3-44.8); MPV 9.6 fL (7.6-11.3); RBC Red Blood Cell Count 3.23 M/uL (3.86-4.86)
[2020-02-21 20:03] LABS: ALT/SGPT 18 U/L (12-78); AST/SGOT 15 U/L (15-37); Albumin 3.7 g/dL (3.4-5.0); Alkaline Phosphatase 93 U/L (45-117); BUN Blood Urea Nitrogen 43 mg/dL (7-18); Bicarbonate 22 mmol/L (21-32); Bilirubin Total 0.3 mg/dL (0.2-1.0); CKMB Creatine Kinase MB < 1.0 ng/mL (0.3-3.6); Glucose Level 104 mg/dL (74-106); Phosphorus 4.9 mg/dL (2.5-4.9); Potassium 4.8 mmol/L (3.5-5.1); Protein, Total 7.3 g/dL (6.4-8.2); Sodium Level 145 mmol/L (136-145); Uric Acid 9.4 mg/dL (2.6-6.0)
[2020-02-21 20:28] LABS: Urine Appearance CLEAR; Urine Bilirubin NEGATIVE (NEG); Urine Blood 2+ (NEG); Urine Color YELLOW; Urine Glucose NEGATIVE (NEG); Urine Protein 2+ (NEG); Urine Urobilinogen 0.2 mg/dL (0.2-1.0); Urine pH 5.5 (5.0-7.0)
[2020-02-21 20:34] LABS: Urine Microscopic Reflex ORDER UMIC
[2020-02-21 20:58] LABS: Urine Bacteria <20 /HPF (<20); Urine Culture Reflex Order REFLEXED; Urine Mucus 1+ /HPF (NONE SEEN); Urine Yeast FEW (NONE SEEN)
[2020-02-22] MEDS: NA CHLORIDE 0.9% 1,000 ML IV SCH (04:25)
--- NOTE | 2020-02-22 08:39 | P.HP ---
Certification for Inpatient Patient admitted to: Inpatient With expected LOS: >2 Midnights Patient will require the following post-hospital care: None Practitioner: I am a practitioner with admitting privileges, knowledge of patient current condition, hospital course, and medical plan of care. Services: Services provided to patient in accordance with Admission requirements found in Title 42 Section 412.3 of the Code of Federal Regulations Patient History Date of Service: 02/21/20 Reason for admission: Acute kidney injury History of Present Illness: Patient is a 64-year-old female came to the hospital with acute renal insufficiency. She had not seen her top printing press operator for quite a while and when she presents to the office her labs revealed that her creatinine had increased. Mud Jack Operator wanted to directly admit her to the hospital for further evaluation. Patient states she has been taking her medication regularly. She has been following up that has not had lab work done in a while. Her renal function shows slight worsening. Hopefully we can get this to improve after hydration. Patient will be admitted to the hospital. Allergies codeine Allergy (Verified 06/08/19 09:15) itching, crawling sensation morphine Allergy (Verified 06/08/19 09:15) itching, rash Penicillins Allergy (Verified 06/08/19 09:15) Anaphylaxis Home Medications: Amlodipine [Norvasc] 5 mg PO DAILY 09/18/17 Atorvastatin Calcium [Lipitor] 20 mg PO DAILY 06/08/19 Cholecalciferol (Vitamin D3) [Vitamin D3] 2,000 unit PO DAILY 06/08/19 Ferrous Sulfate [Iron] 325 mg PO DAILY 06/08/19 Famotidine 20 mg PO DAILY 02/21/20 Metoprolol Tartrate [Lopressor*] 50 mg PO DAILY 02/21/20 - Past Medical/Surgical History Has patient received pneumonia vaccine in the past: No Diabetic: No -: leukemia -: kidney stones -: hypertension -: gerd -: gall bladder removal -: partial hysterectomy - Family History Sister Medical History: Diabetes, Cancer Notes: breast cancer. thyroid Mother Medical History: Cancer Notes: uterine daughter Medical History: Cancer Notes: thyroid dad Medical History: Diabetes, Cancer Notes: colon - Social History Smoking Status: Current every day smoker Alcohol use: Yes CD- Drugs: No Caffeine use: No Place of Residence: Home Review of Systems 10-point ROS is otherwise unremarkable Physical Examination - Vital Signs Temperature: 97.0 F Blood Pressure: 162/72 Pulse: 60 Respirations: 16 Pulse Ox (%): 97 - Physical Exam General: Alert, In no apparent distress, Oriented x3 HEENT: Atraumatic, PERRLA, Mucous membr. moist/pink, EOMI, Sclerae nonicteric Neck: Supple, 2+ carotid pulse no bruit, No LAD, Without JVD or thyroid abnormality Respiratory: Clear to auscultation bilaterally, Normal air movement Cardiovascular: Regular rate/rhythm, Normal S1 S2, No murmurs Gastrointestinal: Normal bowel sounds, Soft and benign, Non-distended, No tenderness Musculoskeletal: No clubbing, No swelling, No tenderness Integumentary: No rashes Neurological: Normal gait, Normal speech, Normal strength at 5/5 x4 extr, Normal tone, Sensation intact, Cranial nerves 3-12 intact, Normal affect Lymphatics: No axilla or inguinal lymphadenopathy - Studies Laboratory Data (last 24 hrs) 02/21/20 19:29: Sodium 145, Potassium 4.8, BUN 43 H, Creatinine 2.83 H, Glucose 104, Uric Acid 9.4 H, Phosphorus 4.9, Total Bilirubin 0.3, AST 15, ALT 18, Alkaline Phosphatase 93 02/21/20 19:29: WBC 8.3, Hgb 10.7 L, Hct 31.9 L, Plt Count 157 Assessment & Plan - Problems (Diagnosis) (1) DARREN (acute kidney injury) Current Visit: Yes Status: Acute (2) HTN (hypertension) Current Visit: Yes Status: Acute (3) DM2 (diabetes mellitus, type 2) Current Visit: Yes Status: Acute (4) Focal segmental glomerulosclerosis Current Visit: Yes Status: Acute - Plan Plan: 1. Continue with strict IV hydration 2. Blood pressure and blood sugar control 3. Stone protocol CT scan 4. Repeat renal function testing 5. GI and DVT prophylaxis Discharge Plan: Home Plan to discharge in: 24 Hours - Advance Directives Does patient have a Living Will: No Does patient have a Durable POA for Healthcare: No - Code Status/Comfort Care Code Status Assessed: Yes Code Status: Full Code Critical Care: No Time Spent Managing PTS Care (In Minutes): 45
[2020-02-22] MEDS ORDERED: FAMOTIDINE 20 MG TAB PO SCH (09:00)
[2020-02-22] MEDS ORDERED: AMLODIPINE 5 MG TAB PO SCH (09:00)
[2020-02-22] MEDS ORDERED: VITAMIN D 1000 UNIT TAB PO SCH (09:00)
[2020-02-22] MEDS ORDERED: METOPROLOL TAR 50 MG TAB PO SCH (09:00)
[2020-02-22] MEDS ORDERED: FERROUS SULFATE 325 MG TAB PO SCH (09:00)
[2020-02-22] MEDS ORDERED: ATORVASTATIN 20 MG TAB PO SCH (09:00)
--- NOTE | 2020-02-22 10:29 | P.CNS ---
Date of Consult: 02/22/20 Reason for Consult: DARREN Chief Complaint: Acute kidney injury History of Present Illness: 64-year-old female with PHX of HTN , active smoker, CKD IV baseline Cr ~2.5 pt presented yesterday to nephrology clinic for follow up , labs showed elevated cr , pt was sent for further W/U pt denied NSAID intake, nausea, vomiting or diarrhea US with no hydronephrosis pt with decreased PO intake lately Review of Systems: Head and Neck: No red eye. No ear pain. GI: No nausea, no vomiting. : No polyuria, no dysuria, no hematuria. 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 Respiratory: No shortness of breath. Cardiovascular: No chest pain. Endocrine: No polydipsia. Skin: No rash. Neuro: Has neuropathy. Physical exam general: AAOX3, NAD Neck; Supple, No elevated JVD hear: RRR, normal S1,2 no murmur or rub Chest: CTAB, no rlaes or wheezes Abdomen: Soft , Nt Extremities No edema DARREN on CKD IV due to dehydration and decreased po intake Cr baseline 2.5 Cr improving , will repeat labs today and if Cr cont to improve then pt can be discharged from nephrology point of iew avoid NSAID renal dose meds hyperkalmia due to DARREN resolved HTN bp controlled Active smoker counseled about cessation tpotal time spent 25min Allergies codeine Allergy (Verified 06/08/19 09:15) itching, crawling sensation morphine Allergy (Verified 06/08/19 09:15) itching, rash Penicillins Allergy (Verified 06/08/19 09:15) Anaphylaxis Home Medications: Amlodipine [Norvasc*] 5 mg PO DAILY 09/18/17 Atorvastatin Calcium [Lipitor*] 20 mg PO DAILY 06/08/19 Cholecalciferol (Vitamin D3) [Vitamin D3] 2,000 unit PO DAILY 06/08/19 Ferrous Sulfate [Iron] 325 mg PO DAILY 06/08/19 Famotidine 20 mg PO DAILY 02/21/20 Metoprolol Tartrate [Lopressor*] 50 mg PO DAILY 02/21/20 - Past Medical/Surgical History Diabetic: No -: leukemia -: kidney stones -: hypertension -: gerd -: gall bladder removal -: partial hysterectomy - Family History Sister Medical History: Diabetes, Cancer Notes: breast cancer. thyroid Mother Medical History: Cancer Notes: uterine daughter Medical History: Cancer Notes: thyroid dad Medical History: Diabetes, Cancer Notes: colon - Social History Smoking Status: Current every day smoker Alcohol use: Yes CD- Drugs: No Caffeine use: No Place of Residence: Home Physical Examination Temp Pulse Resp BP Pulse Ox 97.0 F 60 16 162/72 H 97 02/22/20 08:51 02/22/20 09:33 02/22/20 08:51 02/22/20 09:33 02/22/20 08:51 Laboratory Data (last 24 hrs) 02/21/20 19:29: Sodium 145, Potassium 4.8, BUN 43 H, Creatinine 2.83 H, Glucose 104, Uric Acid 9.4 H, Phosphorus 4.9, Total Bilirubin 0.3, AST 15, ALT 18, Alkaline Phosphatase 93 02/21/20 19:29: WBC 8.3, Hgb 10.7 L, Hct 31.9 L, Plt Count 157
[2020-02-22] MEDS ORDERED: ACETAMINOPHEN 325 MG TABLET PO PRN (11:23)
[2020-02-22 11:30] LABS: Potassium 4.3 mmol/L (3.5-5.1)
[2020-02-22 12:27] VITALS: O2SAT 98
[2020-02-22 13:05] VITALS: BP 129/65; TEMP 97.4
== END 2020-02-22 13:08 | disposition home or self-care (01) ==
LOC: LAB 09:21 → INTOOBSV 02-21 16:03 → 2ND 02-21 16:03
PROVIDERS: ADMIT Hospitalist; ATTEND Hospitalist
DX: N17.9 Acute kidney failure, unspecified (principal); I12.9 Hypertensive chronic kidney disease with stage 1 through stage 4 chronic kidney disease, or unspecified chronic kidney disease; N18.4 Chronic kidney disease, stage 4 (severe); E86.0 Dehydration; E87.5 Hyperkalemia; K21.9 Gastro-esophageal reflux disease without esophagitis; Z20.828 Contact with and (suspected) exposure to other viral communicable diseases; F17.200 Nicotine dependence, unspecified, uncomplicated; E11.22 Type 2 diabetes mellitus with diabetic chronic kidney disease; Z85.6 Personal history of leukemia
CPT/HCPCS: 87088; 85025 ×2; 87086 ×2; 80048 ×2; 36415 ×3; 82435; 84100 ×2; 84132; 84300; 84550 ×2; 82040; 82553; 83970; 80053; 82306; 84156; 82043; 76377; 74176; 82805; U0002; J7030 ×2; 81003; 81015

== ENCOUNTER 2020-11-07 09:28 | Emergency (ER) | payer OTHER ==
--- OUTSIDE RECORDS SUMMARY | 2020-11-07 09:31 | XMS REPORT | Continuity of Care Document ---
:1955 Author Organization [facility] t Address [address] [place] [address] Dr. Herrera [address] [place] [id number] Care Team Providers Name Role Phone Unavailable [...]
[2020-11-07 11:12] LABS: Absolute Lymphocytes (CBC) 2.3 K/uL (0.7-4.9); Basophils % 1.1 % (0-1.3); Hematocrit 31.6 % (36.0-45.0); Lymphocytes % 25.4 % (15.3-44.8); MPV 8.7 fL (7.6-11.3); Protime INR 1.03; RBC Red Blood Cell Count 3.18 M/uL (3.86-4.86)
[2020-11-07 11:22] LABS: ALT/SGPT 19 U/L (12-78); AST/SGOT 16 U/L (15-37); Alkaline Phosphatase 103 U/L (45-117); BUN Blood Urea Nitrogen 48 mg/dL (7-18); Bicarbonate 20 mmol/L (21-32); Bilirubin Direct 0.1 mg/dL (0-0.2); Bilirubin Total 0.5 mg/dL (0.2-1.0); Glucose Level 92 mg/dL (74-106); NT PRO-BNP 801 pg/mL (<125); Potassium 4.4 mmol/L (3.5-5.1); Protein, Total 8.1 g/dL (6.4-8.2); Sodium Level 140 mmol/L (136-145); Troponin (Emerg Dept Use Only) < 0.02 ng/mL (0.0-0.045)
--- NOTE | 2020-11-07 12:50 | RAD REPORT ---
EXAM DESCRIPTION: CT - Head Brain Wo Cont - 11/07/2020 12:32 pm CLINICAL HISTORY: Dizziness COMPARISON: None. TECHNIQUE: Computed axial tomography of the head was obtained. IV contrast was not requested. All CT scans are performed using dose optimization technique as appropriate and may include automated exposure control or mA/KV adjustment according to patient size. FINDINGS: An intracranial bleed is not seen . The ventricles are normal in caliber. No extra-axial fluid collection is noted. Fluid within the sinuses/ mastoids is not seen. IMPRESSION: No acute intracranial abnormality is seen. If patient's symptoms persist MRI of the bra in would be recommended.
[2020-11-07] MEDS ORDERED: MECLIZINE HCL 12.5 MG TAB ONE (13:08)
[2020-11-07] MEDS ORDERED: NA CHLORIDE 0.9% 500 ML ONE (13:09)
--- NOTE | 2020-11-07 13:47 | RAD REPORT ---
EXAM DESCRIPTION: USCarotid Artery Bilateral11/07/2020 1:39 pm CLINICAL HISTORY: Dizziness COMPARISON: None FINDINGS: The velocity of the right internal carotid artery equals 64 cm/sec. The right ICA/CCA rati o .6 The velocity of the left internal carotid artery equals 55 cm/sec. The left ICA/CCA ratio .7 Mild plaque is present within the carotid arteries. The vertebral arteries demonstrate antegrade flow IMPRESSION: Mild plaque within the carotid arteries without evidence of a hemodynamically significan t stenosis NASCET criteria used. Mild 0-49% stenosis Moderate 50-69% stenosis Severe 70-99% stenosis
[2020-11-07 14:17] LABS: Urine Blood 1+ (Negative); Urine Glucose Negative (Negative); Urine Protein 3+ (Negative); Urine Specific Gravity 1.015 (1.005-1.030); Urine pH 5.5 (5.0-7.0)
--- NOTE | 2020-11-07 14:24 | ER ---
Nurse's Notes [facility] Name: Dawn Rolle Age: 64 yrs Sex: Female : 1955 Arrival Date: 11/07/2020 Time: 09:33 Bed DIS4 Private MD: Gilmar Haney F Diagnosis: Dizziness and giddiness;Other peripheral vertigo, unspecified ear;Unspecified kidney failure-chronic Presentation: 11/07 10:31 Chief complaint: Patient states: has been getting real dizzy since this morning, also iw has headache, last time thi happened it was because her potassium was high bit now she takes medicine for it. 10:33 Coronavirus screen: At this time, the client does not indicate any symptoms associated iw with coronavirus-19. Ebola Screen: Patient negative for fever greater than or equal to 101.5 degrees Fahrenheit, and additional compatible Ebola Virus Disease symptoms Patient denies exposure to infectious person. Patient denies travel to an Ebola-affected area in the 21 days before illness onset. No symptoms or risks identified at this time. Initial Sepsis Screen: Does the patient meet any 2 criteria? No. Patient's initial sepsis screen is negative. Does the patient have a suspected source of infection? No. Patient's initial sepsis screen is negative. Risk Assessment: Do you want to hurt yourself or someone else? Patient reports no desire to harm self or others. Onset of symptoms was November 07, 2020. 10:33 Method Of Arrival: Ambulatory iw 10:33 Acuity: MECCA 3 iw Triage Assessment: 15:00 General: Appears in no apparent distress. Behavior is calm, cooperative. iw Historical: - Allergies: 10:33 Codeine; iw 10:33 Morphine; iw 10:33 PENICILLINS; iw - PMHx: 10:33 Hypertension; Kidney stones; Leukemia; iw - PSHx: 10:33 Cholecystectomy; iw - Immunization history:: Client reports receiving the 2nd dose of the Covid vaccine. - Social history:: Smoking status: Patient reports the use of cigarette tobacco products. - Family history:: not pertinent. Screenin:34 Tuberculosis screening: No symptoms or risk factors identified. iw 13:00 Fall Risk None identified. iw 13:00 Nutritional screening: No deficits noted. iw 15:00 Abuse screen: Denies threats or abuse. Denies injuries from another. iw Assessment: 13:00 General: Appears in no apparent distress. comfortable, Behavior is calm, cooperative. iw Pain: Denies pain. 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 Full function Reports dizziness. Cardiovascular: Patient's skin is warm and dry. Respiratory: Airway is patent Respiratory effort is even, unlabored. Derm: Skin is intact, is healthy with good turgor. Musculoskeletal: Range of motion: intact in all extremities. Vital Signs: 10:33 BP 138 / 69; Pulse 59; Resp 16; Temp 97.9; Pulse Ox 100% on R/A; iw ED Course: 09:33 Patient arrived in ED. mr 09:33 Gilmar Haney MD is Private Physician. mr 10:33 Triage completed. iw 10:34 Arm band placed on. iw 11:39 Ann-Marie Cleaning, RN is Primary Nurse. iw 12:06 Diony Hammer MD is Attending Physician. basia 12:31 CT Head Brain wo Cont In Process Unspecified. EDMS 13:00 Patient has correct armband on for positive identification. iw 13:39 US Carotid Artery Bilateral In Process Unspecified. EDMS 13:49 Dveon Gonzalez PA is PHCP. jr8 14:23 Gilmar Haney MD is Referral Physician. basia 14:41 Chest Single View XRAY In Process Unspecified. EDMS 15:00 No provider procedures requiring assistance completed. IV discontinued, intact, iw bleeding controlled, No redness/swelling at site. Pressure dressing applied. Administered Medications: 13:26 Drug: Meclizine 50 mg Route: PO; iw 13:40 Follow up: Response: No adverse reaction iw 14:18 Not Given (Physician Discretion): NS 0.9% 500 ml IV at bolus once iw Outcome: 14:23 Discharge ordered by . [facility] 15:00 Discharged to home ambulatory. iw 15:00 Condition: good 15:00 Discharge instructions given to patient, Instructed on discharge instructions, follow up and referral plans. medication usage, Demonstrated understanding of instructions, follow-up care, medications, Prescriptions given X 15:01 Patient left the ED. iw Signatures: Dispatcher [employer] EDPR Diony Hammer MD MD cha Rivera, Mary mr Ann-Marie Cleaning, RN RN iw Devon Gonzalez PA PA jr8 Corrections: (The following items were deleted from the chart) 10:36 10:31 Chief complaint: Patient states: has been getting real dizzy since this morning, iw also has headache iw
--- NOTE | 2020-11-07 14:24 | EDPHYS ---
Physician Documentation [facility] Name: Dawn Rolle Age: 64 yrs Sex: Female : 1955 Arrival Date: 11/07/2020 Time: 09:33 Bed DIS4 Private MD: Gilmar Haney F ED Physician Diony Hammer HPI: 11/07 13:42 This 64 yrs old Female presents to ER via Ambulatory with complaints of basia Dizziness. 13:42 The patient presents with dizziness, generalized weakness. Onset: The symptoms/episode basia began/occurred 2 day(s) ago. Context: occurred at an unknown location. Modifying factors: The symptoms are alleviated by holding head still, lying down, the symptoms are aggravated by movement of head, standing up. Associated signs and symptoms: Pertinent positives: nausea. Severity of symptoms: At their worst the symptoms were moderate in the emergency department the symptoms have improved mildly. Patient's baseline: Neuro: alert and fully oriented, Motor: no deficits, Ambulation: walks without assistance, Speech: normal. The patient has not experienced similar symptoms in the past. Historical: - Allergies: 10:33 Codeine; iw 10:33 Morphine; iw 10:33 PENICILLINS; iw - PMHx: 10:33 Hypertension; Kidney stones; Leukemia; iw - PSHx: 10:33 Cholecystectomy; iw - Immunization history:: Client reports receiving the 2nd dose of the Covid vaccine. - Social history:: Smoking status: Patient reports the use of cigarette tobacco products. - Family history:: not pertinent. ROS: 13:42 Constitutional: Negative for fever, chills, and weight loss, Eyes: Negative for injury, basia pain, redness, and discharge, ENT: Negative for injury, pain, and discharge, Neck: Negative for injury, pain, and swelling, Cardiovascular: Negative for chest pain, palpitations, and edema, Respiratory: Negative for shortness of breath, cough, wheezing, and pleuritic chest pain, Abdomen/GI: Negative for abdominal pain, nausea, vomiting, diarrhea, and constipation, Back: Negative for injury and pain, : Negative for injury, bleeding, discharge, and swelling, MS/Extremity: Negative for injury and deformity, Skin: Negative for injury, rash, and discoloration, Psych: Negative for depression, anxiety, suicide ideation, homicidal ideation, and hallucinations, Allergy/Immunology: Negative for hives, rash, and allergies, Endocrine: Negative for neck swelling, polydipsia, polyuria, polyphagia, and marked weight changes, Hematologic/Lymphatic: Negative for swollen nodes, abnormal bleeding, and unusual bruising. 13:42 Neuro: Positive for dizziness, weakness. Exam: 13:42 Constitutional: This is a well developed, well nourished patient who is awake, alert, basia and in no acute distress. Head/Face: Normocephalic, atraumatic. Eyes: Pupils equal round and reactive to light, extra-ocular motions intact. Lids and lashes normal. Conjunctiva and sclera are non-icteric and not injected. Cornea within normal limits. Periorbital areas with no swelling, redness, or edema. ENT: Nares patent. No nasal discharge, no septal abnormalities noted. Tympanic membranes are normal and external auditory canals are clear. Oropharynx with no redness, swelling, or masses, exudates, or evidence of obstruction, uvula midline. Mucous membranes moist. Neck: Trachea midline, no thyromegaly or masses palpated, and no cervical lymphadenopathy. Supple, full range of motion without nuchal rigidity, or vertebral point tenderness. No Meningismus. Chest/axilla: Normal chest wall appearance and motion. Nontender with no deformity. No lesions are appreciated. Cardiovascular: Regular rate and rhythm with a normal S1 and S2. No gallops, murmurs, or rubs. Normal PMI, no JVD. No pulse deficits. Respiratory: Lungs have equal breath sounds bilaterally, clear to auscultation and percussion. No rales, rhonchi or wheezes noted. No increased work of breathing, no retractions or nasal flaring. Abdomen/GI: Soft, non-tender, with normal bowel sounds. No distension or tympany. No guarding or rebound. No evidence of tenderness throughout. Back: No spinal tenderness. No costovertebral tenderness. Full range of motion. Female : Normal external genitalia. Skin: Warm, dry with normal turgor. Normal color with no rashes, no lesions, and no evidence of cellulitis. MS/ Extremity: Pulses equal, no cyanosis. Neurovascular intact. Full, normal range of motion. Neuro: Awake and alert, GCS 15, oriented to person, place, time, and situation. Cranial nerves II-XII grossly intact. Motor strength 5/5 in all extremities. Sensory grossly intact. Cerebellar exam normal. Normal gait. Psych: Awake, alert, with orientation to person, place and time. Behavior, mood, and affect are within normal limits. Vital Signs: 10:33 BP 138 / 69; Pulse 59; Resp 16; Temp 97.9; Pulse Ox 100% on R/A; iw MDM: 12:06 Patient medically screened. basia 13:45 Differential diagnosis: cardiac arrhythmia, CVA, generalized weakness, GI bleed, head basia injury, idiopathic dizziness, near-syncope, sepsis, TIA, vertigo. Data reviewed: vital signs, EMS record, lab test result(s), EKG, radiologic studies, CT scan, plain films, ultrasound. Data interpreted: bus driver/monitor: rate is 59 beats/min, rhythm is regular, Pulse oximetry: on room air is 100 %. Test interpretation: by ED physician or midlevel provider: ECG, plain radiologic studies. Counseling: I had a detailed discussion with the patient and/or guardian regarding: the historical points, exam findings, and any diagnostic results supporting the discharge/admit diagnosis, lab results, radiology results, the need for outpatient follow up, for definitive care, a family practitioner, a neurologist. 11/07 10:48 Order name: Basic Metabolic Panel; Complete Time: 12:08 11/07 10:48 Order name: CBC with Diff; Complete Time: 12: 11/07 10:48 Order name: LFT's; Complete Time: 12:08 11/07 10:48 Order name: Magnesium; Complete Time: 12: 11/07 10:48 Order name: NT PRO-BNP; Complete Time: 12: 11/07 10:48 Order name: PT-INR; Complete Time: 12:08 11/07 10:48 Order name: Troponin (emerg Dept Use Only); Complete Time: 12:08 11/07 10:48 Order name: EKG; Complete Time: 10:49 11/07 12:24 Order name: CT Head Brain wo Cont; Complete Time: 13:48 [facility] 11/07 12:24 Order name: US Carotid Artery Bilateral; Complete Time: 13:50 [facility] 11/07 13:50 Order name: Chest Single View XRAY [facility] 11/07 14:16 Order name: Urine Dipstick-Ancillary; Complete Time: 14:22 EDCT 11/07 10:48 Order name: EKG - Nurse/Tech; Complete Time: 14:10 iw 11/07 10:48 Order name: IV Saline Lock; Complete Time: 12:45 iw 11/07 10:48 Order name: Labs collected and sent; Complete Time: 12:45 iw 11/07 10:48 Order name: O2 Per Protocol; Complete Time: 12:45 iw 11/07 10:48 Order name: O2 Sat Monitoring; Complete Time: 12:45 iw 11/07 12:24 Order name: Urine Dipstick-Ancillary (obtain specimen); Complete Time: 14:18 basia Administered Medications: 13:26 Drug: Meclizine 50 mg Route: PO; iw 13:40 Follow up: Response: No adverse reaction iw 14:18 Not Given (Physician Discretion): NS 0.9% 500 ml IV at bolus once iw Disposition Summary: 11/07/20 14:23 Discharge Ordered Location: Home basia Problem: new basia Symptoms: have improved basia Condition: Stable basia Diagnosis - Dizziness and giddiness basia - Other peripheral vertigo, unspecified ear basia - Unspecified kidney failure - chronic basia Followup: basia - With: - When: 2 - 3 days - Reason: Recheck today's complaints, Continuance of care, Re-evaluation by your physician Discharge Instructions: - Discharge Summary Sheet basia - Benign Positional Vertigo basia - Dizziness basia - Vertigo basia - Aspirin and Your Heart basia - Chronic Kidney Disease, Adult, [id number] basia - Dizziness, [id number] basia Forms: - Medication Reconciliation Form basia - Thank You Letter basia - Antibiotic Education basia - Prescription Opioid Use basia Prescriptions: - Meclizine 25 mg Oral Tablet - take 1 tablet by ORAL route every 8 hours As needed; 30 tablet; Refills: 0, basia Product Selection Permitted - Pepcid 20 mg Oral Tablet - take 1 tablet by ORAL route every 12 hours for 10 days; 20 tablet; Refills: 0, basia Product Selection Permitted - Zofran 4 mg Oral Tablet - take 1 tablet by ORAL route every 12 hours As needed; 20 tablet; Refills: 0, basia Product Selection Permitted Signatures: Dispatcher [employer] Diony Chicas MD MD cha Williams, Irene, RN RN iw
[2020-11-07 15:18] VITALS: BP 138/69; TEMP 97.9; O2SAT 100
--- NOTE | 2020-11-07 15:43 | RAD REPORT ---
EXAM DESCRIPTION: Mary Single View11/07/2020 2:41 pm CLINICAL HISTORY: cough COMPARISON: 2019 FINDINGS: The lungs appear clear of acute infiltrate. The heart is normal size IMPRESSION: No acute abnormalities displayed
--- NOTE | 2020-11-08 07:41 | EKG ---
Test Date: 2020-11-07 Test Time: 13:57:19 [employer] Attendant: LARS MEASUREMENT RESULTS: Intervals: Rate: 60 TN: 140 QRSD: 94 QT: 416 QTc: 416 Grant: P: 55 TN: 140 QRS: 67 T: 43 INTERPRETIVE STATEMENTS: Normal sinus rhythm Minimal voltage criteria for LVH, may be normal variant Borderline ECG Compared to ECG 06/08/2019 09:31:52 Left ventricular hypertrophy now present Electronically Signed On 11-08-20 07:39:50 CDT by Mian Talbert
== END 2020-11-07 15:01 | disposition home or self-care (01) ==
LOC: ER 09:28
DX: H81.399 Other peripheral vertigo, unspecified ear (principal); I12.9 Hypertensive chronic kidney disease with stage 1 through stage 4 chronic kidney disease, or unspecified chronic kidney disease; N18.9 Chronic kidney disease, unspecified; F17.210 Nicotine dependence, cigarettes, uncomplicated; Z88.0 Allergy status to penicillin; Z88.5 Allergy status to narcotic agent
CPT/HCPCS: 93005; 85025; 80048; 36415; 83735; 85610; 80076; 81003; 84484; 83880; 70450; 71045; 93880; J7040; 99283

== ENCOUNTER 2020-12-15 09:11 | Inpatient (IN) | payer OTHER ==
--- OUTSIDE RECORDS SUMMARY | 2020-12-15 09:14 | XMS REPORT | Continuity of Care Document ---
:1955 Author Organization [facility] t Address [address] Herrera [address] [place] [id number] Care Team Providers Name Role Phone Unavailable [...]
[2020-12-15 10:07] LABS: Absolute Lymphocytes (CBC) 1.3 K/uL (0.7-4.9); Basophils % 0.4 % (0-1.3); Hematocrit 31.7 % (36.0-45.0); Lymphocytes % 28.6 % (15.3-44.8); MPV 8.9 fL (7.6-11.3); RBC Red Blood Cell Count 3.24 M/uL (3.86-4.86)
[2020-12-15 10:12] LABS: Protime INR 0.99
[2020-12-15 10:25] LABS: ALT/SGPT 14 U/L (12-78); AST/SGOT 23 U/L (15-37); Albumin 3.4 g/dL (3.4-5.0); Alkaline Phosphatase 89 U/L (45-117); BUN Blood Urea Nitrogen 94 mg/dL (7-18); Bilirubin Direct < 0.1 mg/dL (0-0.2); Bilirubin Total 0.3 mg/dL (0.2-1.0); Glucose Level 104 mg/dL (74-106); Magnesium 2.1 mg/dL (1.8-2.4); NT PRO-BNP 659 pg/mL (<125); Potassium 4.1 mmol/L (3.5-5.1); Protein, Total 7.7 g/dL (6.4-8.2); Sodium Level 140 mmol/L (136-145); Troponin (Emerg Dept Use Only) < 0.02 ng/mL (0.0-0.045)
[2020-12-15 10:26] LABS: Bicarbonate 13 mmol/L (21-32)
--- NOTE | 2020-12-15 10:42 | ER ---
Nurse's Notes [facility] Name: Dawn Rolle Age: 64 yrs Sex: Female : 1955 Arrival Date: 12/15/2020 Time: 09:23 Bed 25 Private MD: Diagnosis: SARS-associated coronavirus as the cause of diseases classified elsewhere;Vomiting;Acute kidney failure, unspecified;Dehydration Presentation: 12/15 09:38 Chief complaint: Patient states: pain to mid back with decreased urinary output and ss dark urine that began Friday. Pt also reports she also had a covid test on Friday. Coronavirus screen: Client presents with at least one sign or symptom that may indicate coronavirus-19. Ebola Screen: Patient denies exposure to infectious person. Patient denies travel to an Ebola-affected area in the 21 days before illness onset. Initial Sepsis Screen: Does the patient have a suspected source of infection? No. Patient's initial sepsis screen is negative. Initial Sepsis Screen: Does the patient meet any 2 criteria? No. Patient's initial sepsis screen is negative. Risk Assessment: Do you want to hurt yourself or someone else? Patient reports no desire to harm self or others. Onset of symptoms was December 09, 2020. 09:38 Method Of Arrival: EMS: [facility] 09:38 Acuity: MECCA 1 ss Historical: - Allergies: 09:41 Codeine; ss 09:41 Morphine; ss 09:41 PENICILLINS; ss - PMHx: 09:41 Hypertension; Kidney stones; Leukemia; Kidney disease; ss - PSHx: 09:41 Cholecystectomy; ss - Immunization history:: Client reports receiving the 2nd dose of the Covid vaccine. - Social history:: Smoking status: Patient reports the use of cigarette tobacco products, smokes one-half pack cigarettes per day. Screenin:11 Abuse screen: Denies threats or abuse. Denies injuries from another. Nutritional ss screening: No deficits noted. Tuberculosis screening: Never had TB. Fall Risk None identified. Assessment: 13:09 Reassessment: received report from ROBERTO Morales. ap3 14:41 Reassessment: Attempted report to 4th floor. was informed the receiving nurse will ap3 return my call. Vital Signs: 09:38 Pulse 64; Resp 16; Temp 98.0(TE); Pulse Ox 96% on R/A; Weight 58.51 kg; Pain 8/10; ss 09:40 BP 65 / 42; ss 09:41 BP 70 / 48; ss 09:56 BP 86 / 51; Pulse 67; Resp 16; iw 10:11 BP 104 / 68; Pulse 63; Resp 16; Pulse Ox 95% on R/A; ss ED Course: 09:23 Patient arrived in ED. ja2 09:41 Triage completed. ss 09:42 Arm band placed on left wrist. ss 10:00 Fritz Hanley MD is Attending Physician. kdr 10:00 Inserted saline lock: 22 gauge in right forearm, using aseptic technique. Blood ss collected. Patient maintains SpO2 saturation greater than 95% on room air. 10:10 Carmen Aguirre, ROBERTO is Primary Nurse. ss 10:11 Patient has correct armband on for positive identification. Bed in low position. Call ss light in reach. 10:25 Lipase Sent. 5 10:26 Basic Metabolic Panel Sent. 5 10:26 Basic Metabolic Panel Sent. [facility] 10:26 LFT's Sent. [facility] 10:26 Magnesium Sent. 5 10:26 NT PRO-BNP Sent. [facility] 10:26 Troponin (emerg Dept Use Only) Sent. 5 10:26 Initial lab(s) drawn, by me, sent to lab. EKG done, by ED staff, reviewed by Fritz Hanley MD COVID swab sent to lab. Inserted saline lock: 22 gauge in right forearm, using aseptic technique. Blood collected. 10:38 CK Sent. 5 10:38 Uric Acid Sent. 5 10:40 Gilmar Haney MD is Hospitalizing Provider. kdr 11:49 US Rp Exam Complete In Process Unspecified. EDMS 12:15 XRAY Chest (1 view) In Process Unspecified. EDMS Administered Medications: 10:23 Drug: NS 0.9% 500 ml Route: IV; Rate: bolus; Site: right forearm; ss 11:07 Follow up: IV Status: Completed infusion; IV Intake: 500ml ss 10:23 Drug: Zofran (Ondansetron) 4 mg Route: IVP; Site: right forearm; ss 12:34 Follow up: Response: No adverse reaction; Nausea is decreased ss 11:02 Not Given (Physician Discretion): NS 0.9% 1000 ml IV at 100 ml/hr once jr8 11:07 Drug: NS 0.9% 500 ml Route: IV; Rate: bolus; Site: right antecubital; ss 14:16 Follow up: IV Status: Completed infusion ap3 Intake: 11:07 IV: 500ml; Total: 500ml. ss Outcome: 10:41 Decision to Hospitalize by Provider. kdr 15:49 Patient left the ED. eb Signatures: Dispatcher [employer] EDMS Fritz Hanley MD MD [facility] Ann-Marie Cleaning RN RN Carmen Aguirre RN RN ss Martinez, Maria mh5 Prokisch, Amanda, RN RN ap3 Khushboo Peterson Jessica ja2 Roszak, Josh PA jr8 Corrections: (The following items were deleted from the chart) 09:42 09:38 Acuity: MECCA 3 ss ss 10:23 10:00 Inserted saline lock: 22 gauge in right antecubital area, using aseptic ss technique. Blood collected. ss
--- NOTE | 2020-12-15 10:42 | EDPHYS ---
Physician Documentation [facility] Name: Dawn Rolle Age: 64 yrs Sex: Female : 1955 Arrival Date: 12/15/2020 Time: 09:23 Bed 25 Private MD: ED Physician Fritz Hanley HPI: 12/15 10:11 This 64 yrs old Female presents to ER via EMS with complaints of Vomiting, kdr Urinary Problem. 10:11 The patient presents to the emergency department with nausea, vomiting. Onset: The kdr symptoms/episode began/occurred gradually. Possible causes: COVID. The symptoms are aggravated by nothing. The symptoms are alleviated by nothing. Associated signs and symptoms: Pertinent positives: myalgias, weakness, headaches, body aches, decreased urine output. Severity of symptoms: At their worst the symptoms were moderate in the emergency department the symptoms are unchanged. The patient has not experienced similar symptoms in the past. The patient has not recently seen a physician. This is a 64-year-old female that presented to the emergency room with complaints of vomiting and decreased urinary output. Patient has a history of stage IV renal disease and currently seeing a rerolling machine operator but is not on dialysis. Patient stated that she started to have Covid-like symptoms last and was tested on Friday and was positive. Since then had decrease in oral intake and urinary output.. Historical: - Allergies: 09:41 Codeine; ss 09:41 Morphine; ss 09:41 PENICILLINS; ss - PMHx: 09:41 Hypertension; Kidney stones; Leukemia; Kidney disease; ss - PSHx: 09:41 Cholecystectomy; ss - Immunization history:: Client reports receiving the 2nd dose of the Covid vaccine. - Social history:: Smoking status: Patient reports the use of cigarette tobacco products, smokes one-half pack cigarettes per day. ROS: 10:11 Eyes: Negative for injury, pain, redness, and discharge, ENT: Negative for injury, kdr pain, and discharge, Neck: Negative for injury, pain, and swelling, Cardiovascular: Negative for chest pain, palpitations, and edema, Respiratory: Negative for shortness of breath, cough, wheezing, and pleuritic chest pain, Back: Negative for injury and pain, MS/Extremity: Negative for injury and deformity, Skin: Negative for injury, rash, and discoloration. 10:11 Constitutional: Positive for body aches, chills, fatigue, malaise. 10:11 Abdomen/GI: Positive for nausea and vomiting, Negative for abdominal pain, diarrhea. 10:11 : Positive for small amounts. 10:11 Neuro: Positive for headache. Exam: 10:11 Constitutional: This is a well developed, well nourished patient who is awake, alert, kdr and in no acute distress. Eyes: Pupils equal round and reactive to light, extra-ocular motions intact. Lids and lashes normal. Conjunctiva and sclera are non-icteric and not injected. Cornea within normal limits. Periorbital areas with no swelling, redness, or edema. ENT: Nares patent. No nasal discharge, no septal abnormalities noted. Tympanic membranes are normal and external auditory canals are clear. Oropharynx with no redness, swelling, or masses, exudates, or evidence of obstruction, uvula midline. Mucous membranes dry. Cardiovascular: Regular rate and rhythm with a normal S1 and S2. No gallops, murmurs, or rubs. Normal PMI, no JVD. No pulse deficits. Respiratory: Lungs have equal breath sounds bilaterally, clear to auscultation and percussion. No rales, rhonchi or wheezes noted. No increased work of breathing, no retractions or nasal flaring. Abdomen/GI: Soft, non-tender, with normal bowel sounds. No distension or tympany. No guarding or rebound. No evidence of tenderness throughout. Skin: Warm, dry with normal turgor. Normal color with no rashes, no lesions, and no evidence of cellulitis. MS/ Extremity: Pulses equal, no cyanosis. Neurovascular intact. Full, normal range of motion. Neuro: Awake and alert, GCS 15, oriented to person, place, time, and situation. Motor strength 5/5 in all extremities. Sensory grossly intact. Vital Signs: 09:38 Pulse 64; Resp 16; Temp 98.0(TE); Pulse Ox 96% on R/A; Weight 58.51 kg; Pain 8/10; ss 09:40 BP 65 / 42; ss 09:41 BP 70 / 48; ss 09:56 BP 86 / 51; Pulse 67; Resp 16; iw 10:11 BP 104 / 68; Pulse 63; Resp 16; Pulse Ox 95% on R/A; ss MDM: 10:00 Patient medically screened. kdr 10:38 Data reviewed: vital signs, nurses notes, lab test result(s), EKG, radiologic studies, kdr plain films, ultrasound. Data interpreted: Pulse oximetry: on room air is 95 %. Interpretation: normal. Counseling: I had a detailed discussion with the patient and/or guardian regarding: the historical points, exam findings, and any diagnostic results supporting the discharge/admit diagnosis, lab results, radiology results, the need for further work-up and treatment in the hospital. ED course: Consulted Dr. Reaves nephrology about patient's renal condition. Will start patient on bicarb drip at 125 an hour and will be admitted.. ED course: Left message for Dr. Haney to call back for admission.. 10:57 ED course: Dr. Haney called back and accepted patient for admission.. [facility] 12/15 09:48 Order name: Basic Metabolic Panel 12/15 09:48 Order name: CBC with Diff; Complete Time: 10:28 12/15 09:48 Order name: LFT's; Complete Time: 10:28 12/15 09:48 Order name: Magnesium; Complete Time: 10:28 12/15 09:48 Order name: NT PRO-BNP; Complete Time: 10:28 12/15 09:48 Order name: PT-INR; Complete Time: 10:28 12/15 09:48 Order name: Troponin (emerg Dept Use Only); Complete Time: 10:28 12/15 09:48 Order name: Basic Metabolic Panel; Complete Time: 10:28 [facility] 12/15 10:01 Order name: Urine Microscopic Only [facility] 12/15 10:10 Order name: Lipase; Complete Time: 10:38 [facility] 12/15 10:36 Order name: Uric Acid; Complete Time: 12:12 [facility] 12/15 10:36 Order name: CK; Complete Time: 12:12 [facility] 12/15 12:43 Order name: ABG Arterial Blood Gas [facility] 12/15 09:48 Order name: XRAY Chest (1 view); Complete Time: 12:41 12/15 09:48 Order name: EKG; Complete Time: 09:49 12/15 10:36 Order name: US Rp Exam Complete; Complete Time: 12:41 [facility] 12/15 12:45 Order name: Haptoglobin EDMS 12/15 12:45 Order name: Lactic Dehydrogenase EDMS 12/15 12:45 Order name: Osmolality, Urine EDMS 12/15 12:45 Order name: PTH Intact EDMS 12/15 12:45 Order name: UR POTASSIUM EDMS 12/15 12:45 Order name: Ur Protein EDMS 12/15 12:45 Order name: UR SODIUM EDMS 12/15 12:45 Order name: Vitamin D, 25 ([place]), TOTAL EDMS 12/15 13:33 Order name: SARS-COV-2 RT PCR EDMS 12/15 09:48 Order name: Cardiac monitoring; Complete Time: 10:10 ss 12/15 09:48 Order name: EKG - Nurse/Tech; Complete Time: 10:23 ss 12/15 09:48 Order name: IV Saline Lock; Complete Time: 10:10 ss 12/15 09:48 Order name: Labs collected and sent; Complete Time: 10:10 ss 12/15 09:48 Order name: O2 Per Protocol; Complete Time: 10:10 ss 12/15 09:48 Order name: O2 Sat Monitoring; Complete Time: 10:10 ss 12/15 10:01 Order name: Urine Dipstick-Ancillary (obtain specimen); Complete Time: 14:16 kdr 12/15 14:09 Order name: CONS Physician Consult EDNM Administered Medications: 10:23 Drug: NS 0.9% 500 ml Route: IV; Rate: bolus; Site: right forearm; ss 11:07 Follow up: IV Status: Completed infusion; IV Intake: 500ml ss 10:23 Drug: Zofran (Ondansetron) 4 mg Route: IVP; Site: right forearm; ss 12:34 Follow up: Response: No adverse reaction; Nausea is decreased ss 11:02 Not Given (Physician Discretion): NS 0.9% 1000 ml IV at 100 ml/hr once jr8 11:07 Drug: NS 0.9% 500 ml Route: IV; Rate: bolus; Site: right antecubital; ss 14:16 Follow up: IV Status: Completed infusion ap3 Disposition Summary: 12/15/20 10:41 Hospitalization Ordered Hospitalization Status: Inpatient Admission kdr Provider: Gilmar Haney Condition: Fair kdr Problem: new kdr Symptoms: have improved kdr Bed/Room Type: Standard kdr Location: Telemetry/MedSurg (Inpatient)(12/15/20 14:26) Room Assignment: 429(12/15/20 14:26) Diagnosis - SARS-associated coronavirus as the cause of diseases classified elsewhere kdr - Vomiting kdr - Acute kidney failure, unspecified kdr - Dehydration kdr Forms: - Medication Reconciliation Form kdr - SBAR form kdr Signatures: Dispatcher [employer] EDMS Fritz Hanley MD MD kdr Carmen Aguirre RN RN Khushboo Peterson Josh PA jr8 Perla Farr RN ap3 Corrections: (The following items were deleted from the chart) 12:16 10:10 CORONAVIRUS+MR.LAB.BRZ ordered. EDNM EDMS 13:41 10:41 Telemetry/MedSurg (Inpatient) kdr eb 13:41 10:41 kdr eb 14:16 12:12 [place] ordered. kdr ap3 14:26 13:41 [facility] ER HOLD eb ss 14:26 13:41 ERHOLD- eb ss
[2020-12-15] MEDS ORDERED: ONDANSETRON 4 MG/2 ML VIAL ONE (10:43)
[2020-12-15] MEDS ORDERED: NA CHLORIDE 0.9% 500 ML ONE ×2 (10:43→11:26)
[2020-12-15] MEDS ORDERED: NA CHLORIDE 0.9% 1,000 ML ONE (11:26)
--- NOTE | 2020-12-15 12:12 | RAD REPORT ---
EXAM DESCRIPTION: US - Renal Ultrasound-Complete - 12/15/2020 11:50 am CLINICAL HISTORY: renal failure COMPARISON: Renal Ultrasound-Complete dated 11/03/2020; Renal Ultrasound-Complete dated 06/17/2019; Re nal Ultrasound-Complete dated 04/28/2018; Biopsy Renal dated 03/18/2018; Renal Ultrasound-Complete tonie ed 10/16/2017 FINDINGS: The right kidney measures 8.9 cm in long axis. Left kidney measures 8.3 cm in long axis. Increased echogenicity of the renal cortices suggesting medical renal disease. Several hypoechoic renal lesions are again identified. Of note, there is an upper pole lesion in the right kidney measured 1.6 cm again has a small echogenic solid component. This is present on the ultr asound from 10/16/2017 as well. Other lesions noted which are consistent with simple and or minimally complicated cysts. No evidence of hydronephrosis. The urinary bladder is incompletely distended without gross abnormality seen. IMPRESSION: No evidence of hydronephrosis. Increased echogenicity of the kidneys consistent with med ical renal disease. Complex cystic and solid right upper pole lesion is unchanged since at least 10/16/2017 and is almost certainly benign.
--- NOTE | 2020-12-15 12:24 | RAD REPORT ---
EXAM DESCRIPTION: RAD - Chest Single View - 12/15/2020 12:15 pm CLINICAL HISTORY: low BP COMPARISON: Chest Single View dated 11/07/2020; Chest Pa And Lat (2 Views) dated 06/08/2019; Chest Pa An d Lat (2 Views) dated 12/03/2017; Chest Single View dated 09/02/2017 FINDINGS: Lines: None. Lungs: No evidence of edema or pneumonia. Pleural: No significant pleural effusions or pneumothorax. Cardiac: The heart size is within normal limits. Bones: No acute fractures. Other: IMPRESSION: No acute cardiopulmonary disease.
--- NOTE | 2020-12-15 12:41 | P.CNS ---
Date of Consult: 12/15/20 Reason for Consult: DARREN Requesting Physician: Gilmar Haney History of Present Illness: 64F w/ PMHx of CKD stage 4 presumed to be 2/2 Htn, baseline SCr 2.5-2.8 (equivalent eGFR 17-19 mL/min), hypertension, nephrolithiasis, and leukemia, who p/w nausea, vomiting, and decreased urine output, found to be covid positive, & referred to nephrology for DARREN. serum Patel on admission is 5.5. She was noted to have metabolic acidosis. Allergies codeine Allergy (Verified 06/08/19 09:15) itching, crawling sensation morphine Allergy (Verified 06/08/19 09:15) itching, rash Penicillins Allergy (Verified 06/08/19 09:15) Anaphylaxis Home Medications: Amlodipine [Norvasc*] 10 mg PO DAILY 09/18/17 Atorvastatin Calcium [Lipitor*] 20 mg PO DAILY 06/08/19 Cholecalciferol (Vitamin D3) [Vitamin D3] 2,000 unit PO DAILY 06/08/19 Ferrous Sulfate [Iron] 325 mg PO DAILY 06/08/19 Famotidine 20 mg PO DAILY 02/21/20 Metoprolol Tartrate [Lopressor*] 50 mg PO DAILY 02/21/20 Allopurinol 100 mg PO DAILY 12/15/20 Hydralazine [Apresoline] 10 mg PO BID 12/15/20 Sodium Zirconium Cyclosilicate [Lokelma] 10 gm PO T,TH,S 12/15/20 - Past Medical/Surgical History Diabetic: No -: leukemia -: kidney stones -: hypertension -: gerd -: gall bladder removal -: partial hysterectomy - Family History Sister Medical History: Diabetes, Cancer Notes: breast cancer. thyroid Mother Medical History: Cancer Notes: uterine daughter Medical History: Cancer Notes: thyroid dad Medical History: Diabetes, Cancer Notes: colon - Social History Smoking Status: Current every day smoker Alcohol use: Yes CD- Drugs: No Caffeine use: No Review of Systems General: Weakness, Malaise Eyes: Unremarkable ENT: Unremarkable Respiratory: Unremarkable Cardiovascular: Unremarkable Gastrointestinal: Nausea, Vomiting Genitourinary: Other (decreased urine output) Musculoskeletal: Unremarkable Integumentary: Unremarkable Neurological: Unremarkable Lymphatics: Unremarkable Physical Examination General: In no apparent distress HEENT: Atraumatic, Normocephalic Neck: Supple, JVD not distended Respiratory: Other (symmetric chest expansion) Cardiovascular: No rubs, No murmurs Gastrointestinal: Soft and benign, Non-distended Musculoskeletal: No clubbing Integumentary: No warmth Neurological: Normal tone Lymphatics: No axilla or inguinal lymphadenopathy Urinary: Other (no bladder distention) External genitalia: Deferred Rectal: Deferred Laboratory Data (last 24 hrs) 12/15/20 09:54: Uric Acid 8.0 H 12/15/20 09:54: Lipase 627 H 12/15/20 09:54: PT 11.4, INR 0.99 12/15/20 09:54: WBC 4.50, Hgb 10.6 L, Hct 31.7 L, Plt Count 147 L 12/15/20 09:54: Sodium 140, Potassium 4.1, BUN 94 H, Creatinine 5.52 H*, Glucose 104, Magnesium 2.1, Total Bilirubin 0.3, AST 23, ALT 14, Alkaline Phosphatase 89 Conclusions/Impression: # DARREN 2/2 prerenal state +/- ATN Has baseline CKD stage 4 presumed to be 2/2 Htn, baseline SCr 2.5-2.8 (equivalent eGFR 17-19 mL/min) as of June 2020 Hx of nephrolithiasis Urinalysis showed no hematuria and no pyuria F/u urine chem, random UPCR Renal US unremarkable Continue IV fluids # COVID infection w/ GI manifestations Antiemetics prn IV fluids # AGMA Received IV bicarb # Htn Continue current BP medication regimen # Anemia, thrombocytopenia Hgb 10.6 Follow-up serum haptoglobin & LDH # Secondary hyperPTH Follow-up serum intact PTH & 25OHD level
[2020-12-15 14:49] LABS: Urine Bacteria <20 /HPF (<20); Urine RBC <5 /HPF (NONE SEEN)
[2020-12-15 14:50] LABS: Urine Mucus SLIGHT /HPF (NONE SEEN)
[2020-12-15] MEDS: NACHLORIDE 0.45% 1,000 ML with NA BICARB 8.4% 75 MEQ IV SCH ×4 (15:59→20:36)
[2020-12-15 16:19] VITALS: BMI 22.8
[2020-12-15] MEDS ORDERED: ACETAMINOPHEN 500 MG TAB PO PRN (16:19)
[2020-12-15] MEDS ORDERED: ONDANSETRON 4 MG/2 ML VIAL IV PRN (16:19)
[2020-12-15 16:40] LABS: Blood Gas Oxyhemoglobin 91.1 % (94-97); Blood O2 Saturation 93.1 % (92-98.5)
[2020-12-15] MEDS: METHYLPREDNISOLONE 40 MG INJ IV SCH (17:23)
[2020-12-15] MEDS: HEPARIN 5000 UNIT/ML 1 ML VIAL SQ SCH (20:48)
[2020-12-15] MEDS ORDERED: NACHLORIDE 0.45% 1,000 ML IV ONE (23:55)
[2020-12-16] MEDS ORDERED: NACHLORIDE 0.45% 1,000 ML IV ONE (00:31)
[2020-12-16] MEDS: METHYLPREDNISOLONE 40 MG INJ IV SCH ×3 (00:31→17:00)
--- NOTE | 2020-12-16 04:20 | P.PN ---
Subjective Date of Service: 12/17/20 Subjective: No new changes Physical Examination - Vital Signs Temperature: 97.4 F Blood Pressure: 110/55 Pulse: 71 Respirations: 18 Pulse Ox (%): 97 - Physical Exam General: Other (appears as her stated age) HEENT: Normocephalic Neck: Supple, JVD not distended Respiratory: Other (symmetric chest expansion) Cardiovascular: No rubs, No murmurs Gastrointestinal: Soft and benign Musculoskeletal: No clubbing Integumentary: No warmth Neurological: Normal tone Urinary: Other (no bladder distention) External genitalia: Deferred Rectal: Deferred - Studies Laboratory Data (last 24 hrs) 12/15/20 09:54: Uric Acid 8.0 H 12/15/20 09:54: Lipase 627 H 12/15/20 09:54: PT 11.4, INR 0.99 12/15/20 09:54: WBC 4.50, Hgb 10.6 L, Hct 31.7 L, Plt Count 147 L 12/15/20 09:54: Sodium 140, Potassium 4.1, BUN 94 H, Creatinine 5.52 H*, Glucose 104, Magnesium 2.1, Total Bilirubin 0.3, AST 23, ALT 14, Alkaline Phosphatase 89 Assessment And Plan - Plan # DARREN 2/2 prerenal state +/- ATN Has baseline CKD stage 4 presumed to be 2/2 Htn, baseline SCr 2.5-2.8 (equivalent eGFR 17-19 mL/min) as of June 2020 Hx of nephrolithiasis Urinalysis showed no hematuria and no pyuria Urine chem no longer prerenal +Mild proteinuria 1.2g on random UPCR Renal US unremarkable Continue IV fluids # COVID infection w/ GI manifestations Antiemetics prn IV fluids # NAGMA Received IV bicarb today # Htn Continue current BP medication regimen # Anemia, thrombocytopenia Hgb 9.6 Follow-up serum haptoglobin & LDH hyperphosphatemia Monitor # Secondary hyperPTH vitamin D level at goal serum intact PTH elevated at 128--> cont D3
[2020-12-16] MEDS: NACHLORIDE 0.45% 1,000 ML with NA BICARB 8.4% 75 MEQ IV SCH ×6 (05:12→20:55)
[2020-12-16 06:23] LABS: Absolute Lymphocytes (CBC) 0.6 K/uL (0.7-4.9); Basophils % 0.1 % (0-1.3); Hematocrit 28.9 % (36.0-45.0); Lymphocytes % 29.9 % (15.3-44.8); MPV 9.3 fL (7.6-11.3); RBC Red Blood Cell Count 2.95 M/uL (3.86-4.86)
[2020-12-16 06:41] LABS: Magnesium 2.2 mg/dL (1.8-2.4); Potassium 4.4 mmol/L (3.5-5.1)
[2020-12-16 07:41] LABS: Blood Morphology Comment NOT SEEN (NOT SEEN); Platelet Estimate ADEQ; White Blood Cell Scan OK (OK)
[2020-12-16 08:01] LABS: Urine Protein/Creatinine Ratio 1.18 ratio (<0.15)
[2020-12-16] MEDS: VITAMIN D 1000 UNIT TAB PO SCH (08:47)
[2020-12-16] MEDS: ATORVASTATIN 20 MG TAB PO SCH (08:47)
[2020-12-16] MEDS: METOPROLOL TAR 50 MG TAB PO SCH (08:48)
[2020-12-16] MEDS: AMLODIPINE 5 MG TAB PO SCH (08:48)
[2020-12-16] MEDS: HEPARIN 5000 UNIT/ML 1 ML VIAL SQ SCH ×2 (08:49→20:53)
[2020-12-16] MEDS ORDERED: HOME MED 1 EA UNK (Cholecalciferol (Vitamin D3) [Vitamin D3] 2000 UNIT Capsule) PO SCH (09:00)
[2020-12-16] MEDS: FAMOTIDINE 20 MG TAB PO SCH (09:11)
[2020-12-16] MEDS ORDERED: NACHLORIDE 0.45% 1,000 ML with NA BICARB 8.4% 75 MEQ IV SCH ×2 (10:00)
--- NOTE | 2020-12-16 12:31 | HP ---
Date of Admission: 12/15/2020 History Of Present Illness: 64-year-old female started feeling tired, fatigued, some headache for fe w days. She went and tested for coronavirus and she came back positive for that. The next day, she started having diarrhea along with nausea and vomiting. She came to emergency room and was found als o in acute renal failure and was admitted for that. The patient was also dehydrated. The patient vo iced no other complaints. Review of Systems: Cardiovascular: No complaints. Respiratory: No increased shortness of breath. No cough. No other symptoms. Gastrointestinal: As above. Genitourinary: The patient noticed decreased urination. No other symptoms. Skeletomuscular: No complaint. Neurologic: No complaint. Past Medical History: Includes; 1.Hypertension. 2.Hyperlipidemia. 3.The patient had history of leukemia, but the specific to that is not known and this has been diagn osed that history is remote for her, but she said she was told at one time that she had that. Social History: No smoking, alcohol, or drug abuse history. Family History: Noncontributing. Medications: Include allopurinol 100 mg p.o. daily, iron pills 325 mg p.o. daily, hydralazine 10 mg p.o. b.i.d., 5 mg daily of amlodipine, atorvastatin 10 mg p.o. daily, vitamin D3 and famotidine 20 mg p.o. daily and metoprolol 50 mg p.o. daily. Allergies: INCLUDE CODEINE, MORPHINE, AND PENICILLINS. Physical Examination: Vital Signs: Blood pressure 120/60, pulse 70, temperature 97. Heart: Regular rhythm. Chest: Clear to auscultation. Abdomen: Soft, benign, nontender. No rigidity. No rebound. Bowel sounds are active. Extremities: No edema or cyanosis. Peripheral pulses are felt. Neurologic: Alert, oriented, nonfocal. Grossly intact. Diagnostic Studies: Chest x-ray, no acute pathology. Renal ultrasound showed medical renal disease and complex cystic and solid right upper pole lesion un changed from the one done on 10/16/2017, mostly benign. Laboratory Data: White cell count 4.5, went down to 2000; hemoglobin 10.6, down to 9.6; hematocrit 2 8.9; platelet count 148. Chemistry; chloride 15, BUN 92, creatinine 4.13, GFR 11, blood sugar 128, P TH 127. Urinalysis, protein 1.18. Assessment And Plan: 1.COVID-19. The patient is having acute renal failure on top of chronic gastroesophageal reflux dis ease by her labs. 2.The patient had one day of diarrhea, has resolved by now. She has still has mild nausea, on Zofra n. 3.Rest of her chronic medical problems. 4.Evidence of dehydration. Plan is to hydrate gently. The patient has Nephrology involved. We daisha l hydrate the patient and will monitor her COVID. I put her on steroids. The patient's input by Nep hrology on heparin, however, with the drop in her white cell count, we will ask Nephrology is going t o keep her on heparin or change that on other anticoagulation. At this time, from the standpoint of COVID, the patient is clinically stable. We will put her on Zithromax also. Look orders for details . MFS/MODL Voice ID: [id number]
[2020-12-16] MEDS: AZITHROMYCIN 250 MG TAB PO SCH (13:00)
[2020-12-16] MEDS ORDERED: WATER FOR INJ,STERILE 1,000 ML with NA BICARB 8.4% 150 MEQ IV SCH ×4 (14:00)
[2020-12-17] MEDS: METHYLPREDNISOLONE 40 MG INJ IV SCH ×3 (00:48→16:43)
[2020-12-17 03:45] LABS: Absolute Lymphocytes (CBC) 0.9 K/uL (0.7-4.9); Basophils % 0.1 % (0-1.3); Hematocrit 25.4 % (36.0-45.0); Lymphocytes % 18.9 % (15.3-44.8); MPV 9.5 fL (7.6-11.3); RBC Red Blood Cell Count 2.66 M/uL (3.86-4.86)
[2020-12-17 03:52] LABS: Potassium 3.6 mmol/L (3.5-5.1)
--- NOTE | 2020-12-17 05:23 | P.PN ---
Subjective Date of Service: 12/17/20 Subjective: No new changes Physical Examination - Vital Signs Temperature: 97.4 F Blood Pressure: 131/63 Pulse: 67 Respirations: 18 Pulse Ox (%): 93 - Physical Exam General: Other (appears as her stated age) HEENT: Atraumatic, Normocephalic Neck: Supple Respiratory: Other (symmetric chest expansion) Cardiovascular: No rubs, No murmurs Gastrointestinal: Soft and benign Musculoskeletal: No clubbing Integumentary: No warmth Neurological: Normal speech, Normal tone Lymphatics: No axilla or inguinal lymphadenopathy Urinary: Other (No bladder distention) External genitalia: Deferred Rectal: Deferred Assessment And Plan - Plan # DARREN 2/2 prerenal state +/- ATN Improving, SCr improved to 3.4 today Has baseline CKD stage 4 presumed to be 2/2 Htn, baseline SCr 2.5-2.8 (equivalent eGFR 17-19 mL/min) as of June 2020 Hx of nephrolithiasis Urinalysis showed no hematuria and no pyuria Urine chem no longer prerenal +Mild proteinuria 1.2g on random UPCR Renal US unremarkable Continue IV fluids # COVID infection w/ GI manifestations Antiemetics prn IV fluids # NAGMA Resolved D/c IV bicarb Monitor # Htn BP at goal Continue current BP medication regimen # Anemia, thrombocytopenia LDH wnl, f/u serum haptoglobin # Hyperphosphatemia Monitor # Secondary hyperPTH 25OHD level at goal Serum intact PTH elevated at 128--> cont D3
[2020-12-17] MEDS: VITAMIN D 1000 UNIT TAB PO SCH (10:28)
[2020-12-17] MEDS: ATORVASTATIN 20 MG TAB PO SCH (10:29)
[2020-12-17] MEDS: METOPROLOL TAR 50 MG TAB PO SCH (10:29)
[2020-12-17] MEDS: FAMOTIDINE 20 MG TAB PO SCH (10:29)
[2020-12-17] MEDS: AMLODIPINE 5 MG TAB PO SCH (10:29)
[2020-12-17] MEDS: AZITHROMYCIN 250 MG TAB PO SCH (10:29)
[2020-12-17] MEDS: HEPARIN 5000 UNIT/ML 1 ML VIAL SQ SCH ×2 (10:30→20:50)
--- NOTE | 2020-12-17 11:27 | PN ---
Subjective: The patient has no new complaint. Objective: Vital Signs: Blood pressure 135/62, pulse 66, temperature 97.8. Heart: Regular rate and rhythm. Chest: Clear to auscultation. Abdomen: Soft, benign. Neurological: Alert, oriented, intact. Laboratory Data: White cell count 4.8, hemoglobin 8.7, hematocrit 25.4, and platelets 146. Sodium 1 43 with potassium 3.6, chloride 108, BUN 82, creatinine 3.43, GFR up to 14. Assessment And Plan: 1.Acute renal failure on top of chronic with volume depletion, dehydration. The patient is graduall y improving. 2.Anemia of chronic illness, recovering CBC. 3.History of nausea, vomiting, and diarrhea. 4.COVID-19. The patient is clinically stable. 5.Leukopenia, resolved. Look orders for details. MFS/MODL Voice ID: [id number] Report ID: [id number]
[2020-12-17] MEDS: NACHLORIDE 0.45% 1,000 ML with NA BICARB 8.4% 75 MEQ IV SCH ×4 (12:28→20:52)
[2020-12-18] MEDS: METHYLPREDNISOLONE 40 MG INJ IV SCH ×3 (00:23→18:14)
[2020-12-18 04:05] LABS: Absolute Lymphocytes (CBC) 0.7 K/uL (0.7-4.9); Basophils % 0.1 % (0-1.3); Hematocrit 24.8 % (36.0-45.0); Lymphocytes % 13.7 % (15.3-44.8); MPV 10.2 fL (7.6-11.3); RBC Red Blood Cell Count 2.56 M/uL (3.86-4.86)
[2020-12-18] MEDS: NACHLORIDE 0.45% 1,000 ML with NA BICARB 8.4% 75 MEQ IV SCH ×2 (04:24)
[2020-12-18 04:30] LABS: Potassium 3.3 mmol/L (3.5-5.1)
[2020-12-18] MEDS ORDERED: POTASSIUM 25 MEQ EFFERV TAB PO ONE ×2 (05:19→09:25)
[2020-12-18] MEDS ORDERED: CALCIUM GLUC 10% INJ 4.65 MEQ in NA CHLORIDE 0.9% 100 ML IV ONE (05:19)
[2020-12-18] MEDS ORDERED: CALCIUM GLUCONATE 1 GM IVPB 1 GM/50 ML BAG IV ONE (06:19)
[2020-12-18] MEDS: AMLODIPINE 5 MG TAB PO SCH (08:06)
[2020-12-18] MEDS: ATORVASTATIN 20 MG TAB PO SCH (08:06)
[2020-12-18] MEDS: HEPARIN 5000 UNIT/ML 1 ML VIAL SQ SCH ×2 (08:06→20:15)
[2020-12-18] MEDS: AZITHROMYCIN 250 MG TAB PO SCH (08:06)
[2020-12-18] MEDS: FAMOTIDINE 20 MG TAB PO SCH (08:06)
[2020-12-18] MEDS: VITAMIN D 1000 UNIT TAB PO SCH (08:06)
[2020-12-18] MEDS: METOPROLOL TAR 50 MG TAB PO SCH (08:06)
--- NOTE | 2020-12-18 11:34 | PN ---
Subjective: The patient is doing well. No new complaints. Objective: Vital Signs: Blood pressure 160/70, pulse 60, temperature 97.2. Heart: Regular rate and rhythm. Chest: Clear to auscultation. Abdomen: Soft, benign. Neurological: Alert and oriented. Grossly intact. Room air pulse oximetry 92%. Laboratory Data: White cell count 5.1, hemoglobin 8.4, hematocrit 24.8, and platelets 149. Chemistr y; sodium 145, potassium 3.3, chloride 106, BUN 70, creatinine 2.88, GFR up to 17, calcium 7.3. Assessment And Plan: 1.Acute renal failure on top of chronic, gradually improving. We will follow renal recommendations. 2.COVID 19. The patient is clinically stable. We will continue supportive care. 3.Anemia of chronic illness. We will follow up hemoglobin and hematocrit at this time. No clinical indication of acute bleeding. For hypokalemia, put the patient on electrolyte panel. Look orders f or details. MFS/MODL Voice ID: [id number] Report ID: [id number]
[2020-12-19] MEDS: METHYLPREDNISOLONE 40 MG INJ IV SCH ×2 (00:05→08:45)
--- NOTE | 2020-12-19 02:29 | PN ---
Date of Progress Note: 12/18/2020 Chief Complaint: Acute on chronic kidney injury. The patient has advanced chronic kidney disease stage 4. Baseline GFR 17 to 19. The patient has his tory of proteinuria. 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 The patient was found to have COVID pneumonia. She is admitted for acute kidney injury . The patient developed acute kidney injury secondary to prerenal stage and nonoliguric ATN. Renal function has been improving in response to IV fluids. Serum creatinine level improved to 3.4. Review of Systems: Denies complaints. Physical Examination: Lungs: Few crackles at bases. Heart: S1, S2. Abdomen: Soft, benign. Extremities: No edema. Impression And Plan: 1.Acute kidney injury on advanced chronic kidney disease. Monitor electrolytes and urine output. T he patient has advanced chronic kidney stage 4. Currently, she does not require dialysis. 2.History of nephrolithiasis. The patient was seen by urologist. 3.Mild proteinuria. Continue to monitor blood pressure. Currently NINI inhibitor is on hold due to acute kidney injury. 4.COVID pneumonia with gastrointestinal manifestation. The patient is on anti-nausea medication. 5.Hypertension. Monitor blood pressure. Adjust treatment. 6.Anemia. Follow up serum haptoglobin. LDH within limits. Monitor iron sat. 7.Secondary hyperparathyroidism. Continue vitamin D. PTH is elevated at 128, acceptable for chroni c kidney disease stage 4. EB/MODL Voice ID: [id number] Report ID: [id number]
[2020-12-19 04:11] LABS: Potassium 3.6 mmol/L (3.5-5.1)
[2020-12-19 04:12] LABS: Absolute Lymphocytes (CBC) 0.6 K/uL (0.7-4.9); Basophils % 0.1 % (0-1.3); Hematocrit 26.9 % (36.0-45.0); Lymphocytes % 10.4 % (15.3-44.8); MPV 10.2 fL (7.6-11.3); RBC Red Blood Cell Count 2.77 M/uL (3.86-4.86)
[2020-12-19 08:02] LABS: Potassium 3.7 mmol/L (3.5-5.1)
[2020-12-19] MEDS: VITAMIN D 1000 UNIT TAB PO SCH (08:45)
[2020-12-19] MEDS: FAMOTIDINE 20 MG TAB PO SCH (08:45)
[2020-12-19] MEDS: METOPROLOL TAR 50 MG TAB PO SCH (08:45)
[2020-12-19] MEDS: ATORVASTATIN 20 MG TAB PO SCH (08:45)
[2020-12-19] MEDS: AZITHROMYCIN 250 MG TAB PO SCH (08:45)
[2020-12-19] MEDS: HEPARIN 5000 UNIT/ML 1 ML VIAL SQ SCH (08:46)
[2020-12-19] MEDS: AMLODIPINE 5 MG TAB PO SCH (08:46)
--- NOTE | 2020-12-19 10:09 | EKG ---
Test Date: 2020-12-15 Test Time: 10:33:50 Appeals Examiner: BLAKE MEASUREMENT RESULTS: Intervals: Rate: 69 GA: 124 QRSD: 100 QT: 430 QTc: 460 Bartlett: P: 51 GA: 124 QRS: 64 T: 54 INTERPRETIVE STATEMENTS: Normal sinus rhythm Normal ECG Compared to ECG 12/15/2020 10:16:35 No significant changes Electronically Signed On 12-19-20 10:05:02 CDT by Mian Talbert
[2020-12-19 10:55] VITALS: O2SAT 95
[2020-12-19] MEDS ORDERED: D5W 1,000 ML IV SCH (13:00)
--- NOTE | 2020-12-19 13:25 | PN ---
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 Physical Examination: Vital Signs: When I saw the patient; blood pressure of 162/70, pulse of 62, afebrile. The patient had good voiding. Chest: Faint crackles bilateral. Heart: S1, S2. Regular. Abdomen: Soft, nontender. Extremities: No edema. Neuro: No focality. Laboratory Data: WBC 5.8, H and H 9.1/26.9. Sodium 149, potassium 3.7, bicarb 34, BUN 64, creatinine 3.1, GFR of 15, calcium 8. PTH 127. Renal ultrasound, 8.9/8.3. Current Medications: The patient on include; 1. Azithromycin. 2. Amlodipine. 3. Metoprolol. 4. Atorvastatin. 5. Zofran. 6. KCl. Assessment And Plan: 1. Acute kidney injury on advanced chronic kidney disease secondary to toxic ATN secondary to COVID, nonoliguric. No hyperkalemia. I do not see the need to initiate any renal replacement therapy. We will monitor. 2. Hypertension, not controlled. I am going to go ahead and increase amlodipine to 10 mg. We will avoid using any NINI inhibitor or ARB for the time being. We will add hydralazine 25 b.i.d. 3. COVID pneumonia as by primary. 4. Marginal hypernatremia. I am going to start the patient on D5. 5. Hypokalemia, resolved. 6. Secondary hyperparathyroidism. Calcium on the goal. No need for vitamin D currently. 7. COVID as by primary. Time spent examining the patient [id number] placing order discussing with the patient reviewing data discussing the case with all of our subspecialty including hospitalist 35 minutes RONALD Voice ID: [id number] Report ID: [id number] SANDRA
[2020-12-19 13:45] VITALS: BP 149/69; TEMP 97.3
[2020-12-19] MEDS ORDERED: HYDRALAZINE HCL 25 MG TABLET PO SCH (21:00)
--- NOTE | 2020-12-20 05:36 | DS ---
Date of Discharge: 12/19/2020 Patient with stage IV chronic renal insufficiency, started having nausea, vomiting, and watery stools for 1 day. She came to emergency room during the day, was found to be dehydrated with worsening kid jay functions and she was also COVID-19 positive the day before admission when she tested in an [facility] facility, so went ahead and admitted the patient for all of the above. Past Medical History: As per admit note. Social History: As per admit note. Family History: As per admit note. Medications: As per admit note. Allergies: PER ADMIT NOTE. Physical Examination: As per admit note. Diagnostic Data: As per admit note. Hospital Course: The patient was admitted to the hospital. Nephrology consulted on the patient bernie use of her worsening kidney functions. Also, at the same time, we will put her on IV steroids, Solu- Medrol and Zithromax for her COVID and she was also on heparin anticoagulation. We will continue her home medicines for chronic medical illnesses and her NINI inhibitors were held by Nephrology. The ray cabrera's nausea, vomiting and diarrhea resolved after 1 day. Her kidney functions gradually started t o improve with hydration and today her BUN is 64, creatinine 3.1, GFR at 15 and as per Nephrology, Dr Sheela Alexandra, this is probably her baseline. So, it was okay with Nephrology to discharge the patient and follow her up as an outpatient from that standpoint. Meanwhile, the patient's blood pressure and oth er medical chronic medical illnesses including her anemia of chronic disease has been stable. We kenan t ahead and discharged the patient on Zithromax 250 for 3 days and also on Decadron 2 mg for the next 3 days p.o. daily and the rest of her medications to continue, her home medicines, to hold on NINI in hibitors and follow up also with Dr. Alexandra she is going to follow up with Dr. Alexandra within t he next few days. Look orders for details. MFS/MODL Voice ID: [id number] Report ID: [id number]
[2020-12-20] MEDS ORDERED: AMLODIPINE 10 MG TAB PO SCH (09:00)
== END 2020-12-19 13:34 | disposition home or self-care (01) | DRG 177 ==
LOC: ER 09:11 → ERHOLD 14:13 → 4TH 15:36
PROVIDERS: ADMIT Internal Medicine; ATTEND Internal Medicine
DX: U07.1 COVID-19 (principal); N17.0 Acute kidney failure with tubular necrosis; N18.4 Chronic kidney disease, stage 4 (severe); N25.81 Secondary hyperparathyroidism of renal origin; E87.0 Hyperosmolality and hypernatremia; R11.2 Nausea with vomiting, unspecified; R19.7 Diarrhea, unspecified; E86.0 Dehydration; I12.9 Hypertensive chronic kidney disease with stage 1 through stage 4 chronic kidney disease, or unspecified chronic kidney disease; K21.9 Gastro-esophageal reflux disease without esophagitis; D63.8 Anemia in other chronic diseases classified elsewhere; D69.6 Thrombocytopenia, unspecified; D72.819 Decreased white blood cell count, unspecified; E87.6 Hypokalemia; Z85.6 Personal history of leukemia; Z88.0 Allergy status to penicillin
CPT/HCPCS: 36415; 71045; 76770; 80048; 80076; 81015; 82306; 82550; 82570; 82805; 83010; 83615; 83690; 83735; 83880; 83935; 83970; 84100; 84132; 84156; 84300; 84484; 84550; 85025; 85610; 93005; 96361; 96374; 99291; J0610; J1644; J2405; J2920; J7030; J7040; U0003

== ENCOUNTER 2021-03-12 12:09 | Inpatient (IN) | payer OTHER ==
--- OUTSIDE RECORDS SUMMARY | 2021-03-12 12:10 | XMS REPORT | Continuity of Care Document ---
:[address] [facility] t Address [address] [place] [address] Dr. Herrera [address] [place] [id number] Care Team Providers Name Role Phone Isamar CAAL Attending Clinician Unavailable Payers Payer Name Policy Type Policy Number Effective Date Expiration Date Sherman GONZALES [id number] 2020 00:00:00 Problems This patient has no known problems. Allergies, Adverse Reactions, Alerts Allergy Allergy Status Severity Reaction(s) Onset Inactive Treating Comm ents Source Name Type Date Date Clinician [facility] Active Hives 2014-04 [facility] 1-30 ity of 00:00: [address] [facility] [employer] Active Hives 2014-04 [facility] 1-30 ity of 00:00: [address] CODEINE [employer]UG Active Hives 2014-04 [facility] 1-30 ity of 00:00: [address] Medications This patient has no known medications. Procedures This patient has no known procedures. Encounters Start End Encounter Admission Attending Care Care Encounter Source Date/Time Date/Time Type Type Clinicians Facility Department ID 2020-12-16 2020-12-16 Outpatient Andre CAAL [facility] [id number] [facility] 11:00:00 11:00:00 ALISIA itbasilia [facility] 2020-01-27 2020-01-27 Outpatient [facility] [id number] [facility] 10:12:00 10:12:00 Results This patient has no known results.
[2021-03-12] MEDS ORDERED: NA CHLORIDE 0.9% 2,000 ML ONE (12:41)
--- NOTE | 2021-03-12 12:51 | RAD REPORT ---
EXAM DESCRIPTION: RAD - Chest Single View - 03/12/2021 12:45 pm CLINICAL HISTORY: COUGH COMPARISON: Chest Single View dated 12/15/2020; Chest Single View dated 11/07/2020; Chest Pa And Lat (2 Views) dated 06/08/2019; Chest Pa And Lat (2 Views) dated 12/03/2017 FINDINGS: Lines: None. Lungs: No evidence of edema or pneumonia. Pleural: No significant pleural effusions or pneumothorax. Cardiac: The heart size is within normal limits. Bones: No acute fractures. Other: IMPRESSION: No acute cardiopulmonary disease.
[2021-03-12 13:12] LABS: Urine Blood Trace-lysed (Negative); Urine Glucose Negative (Negative); Urine Protein 3+ (Negative); Urine pH 5.5 (5.0-7.0)
--- NOTE | 2021-03-12 13:13 | RAD REPORT ---
EXAM DESCRIPTION: CTStone Protocol - 03/12/2021 12:50 pm CLINICAL HISTORY: ABD PAIN COMPARISON: Stone Protocol dated 02/21/2020; Stone Protocol dated 10/22/2017; CT-STONE PROTOCOL dated 01/11/2007 TECHNIQUE: CT of the abdomen and pelvis was performed. All CT scans are performed using dose optimization technique as appropriate and may include automated exposure control or mA/KV adjustment according to patient size. FINDINGS: Lower chest: No acute abnormality. Liver: Low-density liver lesions which are unchanged and benign. Biliary: Cholecystectomy. Stomach: No significant focal abnormality. Duodenum: No significant focal abnormality. Pancreas: No significant abnormality. Spleen: No significant abnormality. Adrenal: No suspicious lesions. Kidney/ureter: No hydronephrosis. No renal calculi. Too small to characterize and/or benign appearing renal lesions are noted. Retroperitoneum: No retroperitoneal adenopathy. Vascular: No aneurysm. Atherosclerosis . Bowel: No significant focal abnormality. Normal appendix. Peritoneum: No ascites or free air. Bladder: Grossly unremarkable. Reproductive: No adnexal masses. Bones: No acute fracture. Disc height loss. Other: n/a IMPRESSION: No acute intra-abdominal or pelvic finding. No urinary tract calculi.
[2021-03-12 13:19] LABS: Absolute Lymphocytes (CBC) 2.1 K/uL (0.7-4.9); Basophils % 1.2 % (0-1.3); Hematocrit 32.7 % (36.0-45.0); Lymphocytes % 29.6 % (15.3-44.8); MPV 8.9 fL (7.6-11.3)
[2021-03-12 13:20] LABS: Protime INR 0.94
[2021-03-12 13:36] LABS: ALT/SGPT 20 U/L (12-78); AST/SGOT 19 U/L (15-37); Alkaline Phosphatase 102 U/L (45-117); BUN Blood Urea Nitrogen 55 mg/dL (7-18); Bicarbonate 20 mmol/L (21-32); Bilirubin Direct 0.1 mg/dL (0-0.2); Bilirubin Total 0.5 mg/dL (0.2-1.0); Glucose Level 99 mg/dL (74-106); Lipase 550 U/L (73-393); Magnesium 1.9 mg/dL (1.8-2.4); NT PRO-BNP 1005 pg/mL (<125); Potassium 4.9 mmol/L (3.5-5.1); Protein, Total 7.9 g/dL (6.4-8.2); Sodium Level 141 mmol/L (136-145); Troponin (Emerg Dept Use Only) < 0.02 ng/mL (0.0-0.045); Uric Acid 5.6 mg/dL (2.6-6.0)
[2021-03-12] MEDS ORDERED: CEFTRIAXONE 1000 MG/VIAL ONE (13:57)
--- NOTE | 2021-03-12 14:03 | ER ---
Nurse's Notes [facility] Name: Dawn Rolle Age: 65 yrs Sex: Female : 1955 Arrival Date: 03/12/2021 Time: 12:11 Bed 12 Private MD: Blu Enriquez Diagnosis: Unspecified kidney failure-ACUTE ON CHRONIC;Dehydration Presentation: 03/12 12:19 Chief complaint: Patient states: was sent to ED from DR Mejias's office due to 'volume vg1 depletion'. Pt states 'my kidney cells have dropped'. Coronavirus screen: Vaccine status: Patient reports receiving the 2nd dose of the covid vaccine. and booster Client denies travel out of the [place] in the last 14 days. Ebola Screen: Patient negative for fever greater than or equal to 101.5 degrees Fahrenheit, and additional compatible Ebola Virus Disease symptoms. Initial Sepsis Screen: Does the patient meet any 2 criteria? No. Patient's initial sepsis screen is negative. Does the patient have a suspected source of infection? No. Patient's initial sepsis screen is negative. Risk Assessment: Do you want to hurt yourself or someone else? Patient reports no desire to harm self or others. Onset of symptoms was March 12, 2021. 12:19 Method Of Arrival: Ambulatory vg1 12:19 Acuity: MECCA 3 vg1 Triage Assessment: 12:20 General: Appears in no apparent distress. comfortable, Behavior is calm, cooperative. vg1 Pain: Denies pain. Historical: - Allergies: 12:20 Codeine; vg1 12:20 Morphine; vg1 12:20 PENICILLINS; vg1 - Home Meds: 12:20 amlodipine oral [Active]; Iron CR Oral [Active]; Vitamin D3 oral [Active]; Hydralazine vg1 Oral [Active]; atorvastatin oral [Active]; Metoprolol Tartrate Oral [Active]; Allopurinol Oral [Active]; Lokelma oral [Active]; - PMHx: 12:20 Hypertension; kidney disease; Kidney stones; Leukemia; vg1 - PSHx: 12:20 Cholecystectomy; vg1 - Immunization history:: Client reports receiving the 2nd dose of the Covid vaccine, and booster. - Social history:: Smoking status: Patient reports the use of cigarette tobacco products, '2 Packs per week'. Screenin:36 Abuse screen: Denies threats or abuse. Denies injuries from another. Nutritional ld1 screening: No deficits noted. Tuberculosis screening: No symptoms or risk factors identified. Fall Risk None identified. Assessment: 12:36 General: Appears in no apparent distress. comfortable, Behavior is calm, cooperative, ld1 appropriate for age. Pain: Denies pain. Neuro: Level of Consciousness is awake, alert, obeys commands, Oriented to person, place, time, situation, Appropriate for age. Cardiovascular: Capillary refill < 3 seconds Patient's skin is warm and dry. Respiratory: Airway is patent Respiratory effort is even, unlabored, Respiratory pattern is regular, symmetrical. GI: Abdomen is flat, non-distended. : No signs and/or symptoms were reported regarding the genitourinary system. EENT: No signs and/or symptoms were reported regarding the EENT system. Derm: No signs and/or symptoms reported regarding the dermatologic system. Musculoskeletal: No signs and/or symptoms reported regarding the musculoskeletal system. Vital Signs: 12:19 BP 153 / 73; Pulse 66; Resp 16; Temp 97.5; Pulse Ox 100% ; Weight 59.87 kg; Height 5 vg1 ft. 3 in. (160.02 cm); Pain 0/10; 12:36 BP 149 / 72; Pulse 69; Resp 17; Pulse Ox 100% on R/A; ld1 14:29 BP 145 / 77; Pulse 72; Resp 18; Pulse Ox 100% on R/A; ld1 17:11 BP 139 / 77; Pulse 76; Resp 18; Pulse Ox 100% on R/A; ld1 12:19 Body Mass Index 23.38 (59.87 kg, 160.02 cm) vg1 ED Course: 12:11 Patient arrived in ED. am2 12:11 Mian Talbert MD is Private Physician. am2 12:11 Blu Enriquez MD is Private Physician. am2 12:20 Triage completed. vg1 12:20 Arm band placed on. vg1 12:26 Diony Hammer MD is Attending Physician. [facility] 12:28 Zoe Blanco RN is Primary Nurse. ld1 12:36 Patient has correct armband on for positive identification. Placed in gown. Bed in low ld1 position. Call light in reach. Side rails up X2. environmental monitoring specialist on. Pulse ox on. NIBP on. Door closed. Noise minimized. Warm blanket given. 12:36 No provider procedures requiring assistance completed. ld1 12:37 LFT's Sent. ld1 12:45 XRAY Chest (1 view) In Process Unspecified. EDMS 12:50 CT Stone Protocol In Process Unspecified. EDMS 13:14 Urine Culture Sent. ld1 13:14 Inserted saline lock: 20 gauge in right antecubital area, using aseptic technique. ld1 Blood collected. 14:00 Gilmar Haney MD is Hospitalizing Provider. [facility] 14:22 SARS-COV-2 RT PCR (Document "Date of Onset" if Symptomatic) Sent. ld1 17:29 IV discontinued, intact, bleeding controlled, No redness/swelling at site. ld1 Administered Medications: 13:14 Drug: NS 0.9% 500 ml Route: IV; Rate: bolus; Site: right antecubital; ld1 14:50 Follow up: Response: No adverse reaction; IV Status: Completed infusion; IV Intake: ld1 500ml 13:14 Drug: NS 0.9% 1000 ml Route: IV; Rate: 125 ml/hr; Site: right antecubital; ld1 14:50 Follow up: Response: No adverse reaction; IV Status: Completed infusion ld1 14:02 Drug: Rocephin (cefTRIAXone) 1 grams Route: IV; Rate: per protocol; Site: right ld1 antecubital; 14:22 Follow up: Response: No adverse reaction ld1 Intake: 14:50 IV: 500ml; Total: 500ml. ld1 Outcome: 14:02 Decision to Hospitalize by Provider. [facility] 17:28 Admitted to Med/surg accompanied by nurse, via wheelchair, room 210, with chart, Report ld1 called to ROBERTO Dumont. 17:28 Condition: stable 17:28 Discharge instructions given to patient, Instructed on discharge instructions, follow up and referral plans. medication usage, Demonstrated understanding of instructions, follow-up care, medications, Prescriptions given X 4. 17:29 Patient left the ED. ld1 Signatures: Dispatcher [employer] EDMS Diony Hammer MD MD cha Moreno, Amanda am2 Ruthie Beckford, ROBERTO RN vg1 Dibbern, Zoe, RN RN ld1
--- NOTE | 2021-03-12 14:03 | EDPHYS ---
Physician Documentation [facility] Name: Dawn Rolle Age: 65 yrs Sex: Female : 1955 Arrival Date: 03/12/2021 Time: 12:11 Bed 12 Private MD: Blu Enriquez ED Physician Diony Hammer HPI: 03/12 13:56 This 65 yrs old Female presents to ER via Ambulatory with complaints of volume basia depletion. 13:56 sent for fluids by Magalie, DEHYDRATED , PRERENAL FAILURE. Onset: The symptoms/episode basia began/occurred 2 week(s) ago. Severity of symptoms: At their worst the symptoms were mild in the emergency department the symptoms are unchanged. The patient has experienced similar episodes in the past, several times. Historical: - Allergies: 12:20 Codeine; vg1 12:20 Morphine; vg1 12:20 PENICILLINS; vg1 - Home Meds: 12:20 amlodipine oral [Active]; Iron CR Oral [Active]; Vitamin D3 oral [Active]; Hydralazine vg1 Oral [Active]; atorvastatin oral [Active]; Metoprolol Tartrate Oral [Active]; Allopurinol Oral [Active]; Lokelma oral [Active]; - PMHx: 12:20 Hypertension; kidney disease; Kidney stones; Leukemia; vg1 - PSHx: 12:20 Cholecystectomy; vg1 - Immunization history:: Client reports receiving the 2nd dose of the Covid vaccine, and booster. - Social history:: Smoking status: Patient reports the use of cigarette tobacco products, '2 Packs per week'. ROS: 13:57 Constitutional: Negative for fever, chills, and weight loss, Eyes: Negative for injury, basia pain, redness, and discharge, ENT: Negative for injury, pain, and discharge, Neck: Negative for injury, pain, and swelling, Cardiovascular: Negative for chest pain, palpitations, and edema, Respiratory: Negative for shortness of breath, cough, wheezing, and pleuritic chest pain, Abdomen/GI: Negative for abdominal pain, nausea, vomiting, diarrhea, and constipation, Back: Negative for injury and pain, : Negative for injury, bleeding, discharge, and swelling, MS/Extremity: Negative for injury and deformity, Skin: Negative for injury, rash, and discoloration, Neuro: Negative for headache, weakness, numbness, tingling, and seizure, Psych: Negative for depression, anxiety, suicide ideation, homicidal ideation, and hallucinations, Allergy/Immunology: Negative for hives, rash, and allergies, Endocrine: Negative for neck swelling, polydipsia, polyuria, polyphagia, and marked weight changes, Hematologic/Lymphatic: Negative for swollen nodes, abnormal bleeding, and unusual bruising. Exam: 13:57 Constitutional: This is a well developed, well nourished patient who is awake, alert, basia and in no acute distress. Head/Face: Normocephalic, atraumatic. Eyes: Pupils equal round and reactive to light, extra-ocular motions intact. Lids and lashes normal. Conjunctiva and sclera are non-icteric and not injected. Cornea within normal limits. Periorbital areas with no swelling, redness, or edema. ENT: Nares patent. No nasal discharge, no septal abnormalities noted. Tympanic membranes are normal and external auditory canals are clear. Oropharynx with no redness, swelling, or masses, exudates, or evidence of obstruction, uvula midline. Mucous membranes moist. Neck: Trachea midline, no thyromegaly or masses palpated, and no cervical lymphadenopathy. Supple, full range of motion without nuchal rigidity, or vertebral point tenderness. No Meningismus. Chest/axilla: Normal chest wall appearance and motion. Nontender with no deformity. No lesions are appreciated. Cardiovascular: Regular rate and rhythm with a normal S1 and S2. No gallops, murmurs, or rubs. Normal PMI, no JVD. No pulse deficits. Respiratory: Lungs have equal breath sounds bilaterally, clear to auscultation and percussion. No rales, rhonchi or wheezes noted. No increased work of breathing, no retractions or nasal flaring. Abdomen/GI: Soft, non-tender, with normal bowel sounds. No distension or tympany. No guarding or rebound. No evidence of tenderness throughout. Back: No spinal tenderness. No costovertebral tenderness. Full range of motion. Female : Normal external genitalia. Skin: Warm, dry with normal turgor. Normal color with no rashes, no lesions, and no evidence of cellulitis. MS/ Extremity: Pulses equal, no cyanosis. Neurovascular intact. Full, normal range of motion. Neuro: Awake and alert, GCS 15, oriented to person, place, time, and situation. Cranial nerves II-XII grossly intact. Motor strength 5/5 in all extremities. Sensory grossly intact. Cerebellar exam normal. Normal gait. Psych: Awake, alert, with orientation to person, place and time. Behavior, mood, and affect are within normal limits. 14:12 ECG was reviewed by the Attending Physician. [facility] Vital Signs: 12:19 BP 153 / 73; Pulse 66; Resp 16; Temp 97.5; Pulse Ox 100% ; Weight 59.87 kg; Height 5 1 ft. 3 in. (160.02 cm); Pain 0/10; 12:36 BP 149 / 72; Pulse 69; Resp 17; Pulse Ox 100% on R/A; ld1 14:29 BP 145 / 77; Pulse 72; Resp 18; Pulse Ox 100% on R/A; ld1 17:11 BP 139 / 77; Pulse 76; Resp 18; Pulse Ox 100% on R/A; ld1 12:19 Body Mass Index 23.38 (59.87 kg, 160.02 cm) 1 MDM: 12:31 Patient medically screened. [facility] 13:58 Data reviewed: vital signs, nurses notes, lab test result(s), EKG, radiologic studies, [facility] CT scan, plain films. Data interpreted: environmental monitoring specialist: rate is 69 beats/min, rhythm is regular, Pulse oximetry: on room air is 100 %. Test interpretation: by ED physician or midlevel provider: ECG, plain radiologic studies. Counseling: I had a detailed discussion with the patient and/or guardian regarding: the historical points, exam findings, and any diagnostic results supporting the discharge/admit diagnosis, lab results, radiology results, the need for further work-up and treatment in the hospital. 03/12 12:33 Order name: Basic Metabolic Panel [facility] 03/12 12:33 Order name: CBC with Diff [facility] 03/12 12:33 Order name: LFT's; Complete Time: 13:50 [facility] 03/12 12:33 Order name: Magnesium; Complete Time: 13:50 [facility] 03/12 12:33 Order name: NT PRO-BNP; Complete Time: 13:50 [facility] 03/12 12:33 Order name: PT-INR; Complete Time: 13:50 [facility] 03/12 12:33 Order name: Troponin (emerg Dept Use Only); Complete Time: 13:50 [facility] 03/12 12:33 Order name: Lipase; Complete Time: 13:50 [facility] 03/12 12:33 Order name: Urine Culture [facility] 03/12 12:33 Order name: Uric Acid; Complete Time: 13:50 [facility] 03/12 12:34 Order name: Basic Metabolic Panel; Complete Time: 13:50 EDMS 03/12 12:34 Order name: CBC with Automated Diff; Complete Time: 13:50 EDMS 03/12 13:12 Order name: Urine Dipstick-Ancillary; Complete Time: 13:50 EDMS 03/12 14:18 Order name: SARS-COV-2 RT PCR (Document "Date of Onset" if Symptomatic) 03/12 12:33 Order name: XRAY Chest (1 view); Complete Time: 13:50 [facility] 03/12 12:33 Order name: EKG; Complete Time: 12:34 [facility] 03/12 12:33 Order name: Cardiac monitoring; Complete Time: 13:14 [facility] 03/12 12:33 Order name: EKG - Nurse/Tech; Complete Time: 13:23 [facility] 03/12 12:33 Order name: IV Saline Lock; Complete Time: 13:14 [facility] 03/12 12:33 Order name: Labs collected and sent; Complete Time: 13:14 [facility] 03/12 12:33 Order name: O2 Per Protocol; Complete Time: 12:37 [facility] 03/12 12:33 Order name: O2 Sat Monitoring; Complete Time: 12:48 [facility] 03/12 12:33 Order name: Urine Dipstick-Ancillary (obtain specimen); Complete Time: 13:14 [facility] 03/12 12:33 Order name: CT Stone Protocol; Complete Time: 13:50 [facility] 03/12 14:08 Order name: CONS Physician Consult EDMS EC:12 Rate is 61 beats/min. Rhythm is regular. QRS Gueydan is Normal. ME interval is normal. QRS basia interval is normal. QT interval is normal. No Q waves. T waves are Normal. No ST changes noted. Clinical impression: Normal ECG and No evidence of ischemia. Interpreted by me. Reviewed by me. Administered Medications: 13:14 Drug: NS 0.9% 500 ml Route: IV; Rate: bolus; Site: right antecubital; ld1 14:50 Follow up: Response: No adverse reaction; IV Status: Completed infusion; IV Intake: ld1 500ml 13:14 Drug: NS 0.9% 1000 ml Route: IV; Rate: 125 ml/hr; Site: right antecubital; ld1 14:50 Follow up: Response: No adverse reaction; IV Status: Completed infusion ld1 14:02 Drug: Rocephin (cefTRIAXone) 1 grams Route: IV; Rate: per protocol; Site: right ld1 antecubital; 14:22 Follow up: Response: No adverse reaction ld1 Disposition Summary: 03/12/21 14:02 Hospitalization Ordered Hospitalization Status: Inpatient Admission basia Provider: Gilmar Haney cha Location: Telemetry/MedSurg (Inpatient) basia Condition: Fair basia Problem: new basia Symptoms: have improved basia Bed/Room Type: Standard [facility] Room Assignment: 210(03/12/21 15:56) dw Diagnosis - Unspecified kidney failure - ACUTE ON CHRONIC basia - Dehydration basia Forms: - Medication Reconciliation Form basia - SBAR form basia Signatures: Dispatcher [employer] Soha Resendiz RN RN Diony James MD MD cha Garcia, Victoria, RN RN vg1 Zoe Blanco RN RN ld1 Corrections: (The following items were deleted from the chart) 15:56 14:02 basia dw
[2021-03-12] MEDS: NA CHLORIDE 0.9% 1,000 ML IV SCH (17:23)
[2021-03-12] MEDS ORDERED: ALBUTEROL 2.5 MG/3 ML NEB SOL NEB PRN (17:23)
[2021-03-12] MEDS ORDERED: ACETAMINOPHEN 500 MG TAB PO PRN (17:23)
[2021-03-12] MEDS ORDERED: ONDANSETRON 4 MG/2 ML VIAL IV PRN (17:23)
[2021-03-12] MEDS ORDERED: IPRATROPIUM BROM 0.5MG/2.5ML NEB PRN (17:23)
[2021-03-12 18:20] VITALS: BMI 23.3
[2021-03-12] MEDS: HYDRALAZINE HCL 10 MG TABLET PO SCH (20:34)
--- NOTE | 2021-03-12 21:36 | HP ---
Date of Admission: 03/12/2021 History Of Present Illness: A 65-year-old female with advanced chronic renal insufficiency, was foll owing with Dr. Allen, her beveller operator. Today when Dr. Allen noted that the patient is dehydrated and her renal functions have worsened, so she sent her to the emergency room to be evaluated and roman ent was admitted for dehydration and acute renal failure on chronic renal failure. The patient denie d having loss of fluids like diarrhea, nausea or vomiting, and she voiced no other complaints. Review of Systems: Cardiovascular: No complaint. Genitourinary: No complaints. Skeletomuscular: No complaints. Gastrointestinal: No complaint. Neurological: No complaint. Respiratory: No complaint. Past Medical History: 1.As above advanced chronic renal insufficiency stage 5. 2.Hypertension. 3.Hyperlipidemia. 4.History of gout. 5.History of kidney stones. 6.Leukemia. 7.The patient has had cholecystectomy in the past. The patient is vaccinated fully for COVID. Allergies: CODEINE, MORPHINE, AND PENICILLIN. Social History: No smoking, alcohol or drug abuse history. Family History: Noncontributing. Medications: Amlodipine 10 mg p.o. daily, atorvastatin 20 mg p.o. daily, vitamin D3 2000 units p.o. daily, promethazine 20 mg p.o. daily, ferrous sulfate 325 mg p.o. daily, hydralazine 10 mg p.o. b.i.d ., metoprolol 50 mg p.o. daily, Lokelma 10 g p.o. Friday, , and Friday, allopurinol 100 mg p .o. daily. Physical Examination: Vital Signs: Blood pressure 139/77, pulse 76, temperature 97.3. Heart: Regular rate and rhythm. Chest: Clear to auscultation. Abdomen: Soft, benign. No hepatosplenomegaly. Bowel sounds are normoactive. Extremities: No edema. No cyanosis. Peripheral pulses are felt. Neurological: Alert, oriented, nonfocal. Grossly intact. Skin: No loss of elasticity. Laboratory Data: CBC; white cell count 7.1, hemoglobin 10.6, hematocrit 32.7, platelets 184. Chemis try; BUN of 55, creatinine 3.70, chloride 115, CO2 20, BNP 1005, lipase 550. Urine leukocyte esteras e 1+. COVID-19 negative. Assessment And Plan: Acute renal failure on chronic. Patient's GFR used to be between 18 and 16 and now is down to 12. We are going to go ahead and start the patient on gentle hydration. I have cons ulted Dr. Allen. I will continue her on her home medicines. At this time, the patient shows no sym ptoms of urinary tract infection. If urine cultures reveal anything, then we will put her on antibio tics. Look orders for details. MFS/MODL Voice ID: [id number]
--- NOTE | 2021-03-13 02:52 | CON ---
Date of Consultation: 03/12/2021 Chief Complaint: Acute kidney injury on advanced chronic kidney disease. History Of Present Illness: The patient has multiple medical problems including history of recent CO VID infection. She was admitted to the hospital in February and was treated with IV fluid for acute kidney injury. The patient came to the clinic today for routine work up. Lab work revealed acute ki dney injury. Baseline GFR is ranging from 17 to 19. On recent blood work, GFR dropped to 11. Serum creatinine was over 3. Baseline creatinine level is 2.5 to 2.8. The patient has history of hyperte nsion, hyperlipidemia, history of acute kidney injury, and COVID pneumonia. Review of Systems: Constitutional: The patient denies fever or chills. HEENT: Denies vision changes. Ears, Nose, Mouth, and Throat: Denies sore throat or earache. RESPIRATORY: Denies PND or orthopnea. Physical Examination: Lungs: Clear to auscultation bilaterally. Heart: S1, S2. Abdomen: Soft, benign. Extremities: No edema. Eyes: Anicteric sclerae. EOMI. Ear, Nose, Mouth, and throat: Oral mucosa moist. No pallor. Neurology: Moving extremities. Cranial nerves intact. Psychiatric: Alert, oriented x3, normal affect. 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 Family History: Sister had diabetes and cancer. Social History: Denies tobacco, alcohol, or illicit drugs. Laboratory Data: Hemoglobin 10.6, WBC 7.1, platelet count is 184,000. Chemistries show sodium 141, potassium 4.9, chloride 115, CO2 of 20, BUN 55, creatinine 3.70, estimated GFR 12, uric acid 5.6, mag nesium 1.9. Serum protein 7.8. Troponin than DICTATION ENDS HERE. EB/MODL Voice ID: [id number] Report ID: [id number]
[2021-03-13 05:22] LABS: Absolute Lymphocytes (CBC) 2.1 K/uL (0.7-4.9); Basophils % 1.1 % (0-1.3); Hematocrit 24.2 % (36.0-45.0); Lymphocytes % 34.9 % (15.3-44.8); MPV 8.8 fL (7.6-11.3); RBC Red Blood Cell Count 2.38 M/uL (3.86-4.86)
[2021-03-13] MEDS: NA CHLORIDE 0.9% 1,000 ML IV SCH (07:19)
--- NOTE | 2021-03-13 07:51 | RAD REPORT ---
EXAM DESCRIPTION: RAD - Chest Single View - 03/13/2021 5:45 am CLINICAL HISTORY: Chest Pain COMPARISON: Chest Single View dated 03/12/2021; Chest Single View dated 12/15/2020; Chest Single View dated 11/07/2020; Chest Pa And Lat (2 Views) dated 06/08/2019; Stone Protocol dated 03/12/2021 FINDINGS: Lines: None. Lungs: Increased prominence of the pulmonary interstitium. This is nonspecific. Pleural: No significant pleural effusions or pneumothorax. Cardiac: The heart size is within normal limits. Bones: No acute fractures. Other: IMPRESSION: Increased prominence of the pulmonary interstitium may be related to technique versus a mild infectious or inflammatory process .
[2021-03-13] MEDS: FAMOTIDINE 20 MG TAB PO SCH (09:40)
[2021-03-13] MEDS: FERROUS SULFATE 325 MG TAB PO SCH (09:41)
[2021-03-13] MEDS: VITAMIN D 1000 UNIT TAB PO SCH (09:41)
[2021-03-13] MEDS: METOPROLOL TAR 50 MG TAB PO SCH (09:41)
[2021-03-13] MEDS: ATORVASTATIN 20 MG TAB PO SCH (09:41)
[2021-03-13] MEDS: AMLODIPINE 5 MG TAB PO SCH (09:41)
[2021-03-13] MEDS: allopurinoL 100 MG TAB PO SCH (09:41)
[2021-03-13] MEDS: HYDRALAZINE HCL 10 MG TABLET PO SCH ×2 (09:44→21:24)
[2021-03-13] MEDS ORDERED: NACHLORIDE 0.45% 1,000 ML with NA BICARB 8.4% 100 MEQ IV SCH ×2 (10:00)
--- NOTE | 2021-03-13 13:05 | EKG ---
Test Date: 2021-03-12 Test Time: 13:22:52 Warp Tier: BRENNON MEASUREMENT RESULTS: Intervals: Rate: 61 IL: 124 QRSD: 86 QT: 408 QTc: 410 Jefferson: P: 54 IL: 124 QRS: 64 T: 54 INTERPRETIVE STATEMENTS: Normal sinus rhythm Normal ECG Compared to ECG 12/15/2020 10:33:50 No significant changes Electronically Signed On 03-13-21 13:02:41 SMOKING PIPE MAKER by Mian Talbert
--- NOTE | 2021-03-13 13:27 | PN ---
Subjective: The patient is doing well. Has no new complaint. Objective: Vital Signs: Blood pressure 148/67, pulse 68, temperature 97.9, room air pulse oximetry at 98. Laboratory Data: CBC; hemoglobin 7.9, hematocrit 24.2, platelets 151. Chemistry, chloride 121, BUN 50, creatinine 3.46, GFR 13. BNP 1418. Assessment And Plan: 1.Acute renal failure on chronic. Her GFR has improved to with gentle hydration. We daisha l continue that pending further recommendations from Nephrology. 2.Anemia of chronic kidney disease. We will follow up her CBC. I think the patient was dehydrated and with IV fluids, the drop in hemoglobin reflects hemodilution. We will check another CBC in the [facility]. The patient is clinically stable. The rest of her medical problems are stable. MFS/MODL Voice ID: [id number] Report ID: [id number]
--- NOTE | 2021-03-13 14:21 | PN ---
Date of Progress Note: 03/13/2021 Subjective: The patient was admitted with acute kidney injury. The patient known to have chronic kidney disease, stage 4. The patient visited with Dr. Phillips yesterday, found to have worsening in kidney function. The patient is feeling nauseated with dizziness with any change of position. Overnight, the patient was started on IV hydration. Kidney function slightly improved. The patient is feeling slightly better. Physical Examination: Vital Signs: Blood pressure 132/65, pulse of 60, afebrile. The patient is still making good urine output. Chest: Clear to auscultation. Heart: S1, S2. Regular. Abdomen: Soft, nontender. Extremities: No edema. Neuro: Alert, no focality. Laboratory Data: WBC 5.9, H and H 7.9/24.2. Sodium 145, potassium 5, bicarb 18, BUN 50, creatinine 3.4, GFR of 13, calcium 7.8. BNP 1400. Current Medications: The patient on include; 1. Amlodipine. 2. Atorvastatin. 3. Metoprolol 50. 4. Bicarb drip. 5. Allopurinol. 6. Cholecalciferol. Assessment And Plan: 1. Acute kidney injury on advanced chronic kidney disease, nonoliguric. No hyperkalemia or acidosis, only mild. No other uremic symptoms. The patient looked to me still on the dry side. I am going to continue the patient on hydration and we will monitor the patient closely. 2. Acidosis, non-anion gap metabolic acidosis secondary to renal failure. Discontinue bicarb drip and start the patient on oral bicarb. 3. Hyperchloremic secondary to IV fluid. Change to the bicarb drip and we will follow up. 4. Marginal hyperkalemia, resolved. 5. Anemia of chronic kidney disease. I am going to go ahead and send for anemia workup. 6. Hypertension with the presence of acute kidney injury. Keep holding any NINI inhibitor or ARB. time spend exam the patient face to face , placing order , reviewing the data of lab and radiology , discussing with the staff including nusing , discussing with other kumar member including hospitalist and other fashion consultant 45 min RONALD Voice ID: [id number] Report ID: [id number] SANDRA
[2021-03-13] MEDS: D5 0.45 NS 1,000 ML IV SCH (15:14)
[2021-03-13] MEDS: SODIUM BICARB 325 MG TAB PO SCH ×2 (15:15→21:24)
[2021-03-13 21:43] VITALS: O2SAT 99
[2021-03-14 06:16] LABS: Absolute Lymphocytes (CBC) 1.9 K/uL (0.7-4.9); Basophils % 1.2 % (0-1.3); Hematocrit 24.2 % (36.0-45.0); Lymphocytes % 33.7 % (15.3-44.8); MPV 8.7 fL (7.6-11.3); RBC Red Blood Cell Count 2.39 M/uL (3.86-4.86)
[2021-03-14 06:49] LABS: Ferritin 134.1 ng/mL (8-388); Folic Acid, (Folate) 11.7 ng/mL (3.1-17.5); Phosphorus 4.6 mg/dL (2.5-4.9); Potassium 4.9 mmol/L (3.5-5.1); Thyroid Stimulating Hormone 3.56 uIU/mL (0.360-3.740); Uric Acid 5.3 mg/dL (2.6-6.0)
--- NOTE | 2021-03-14 08:44 | PN ---
Subjective: Patient has no new complaint. Objective: VITAL SIGNS: Blood pressure 124/54, pulse 62, temperature 97.1. HEART: Regular rate and rhythm. CHEST: Clear to auscultation. ABDOMEN: Soft, benign. NEUROLOGICAL: Alert, oriented. Grossly intact. Laboratory Data: CBC; white cell count 5.7, hemoglobin steady at 7.9, hematocrit 24.2, platelets 140 . Chemistry; chloride 119, bicarb 19, BUN 44, creatinine 3.23, GFR up 1 point to 14. Transferrin an d percent saturation 167 still. Assessment/plan: 1.Acute on chronic renal failure secondary to dehydration. Continue gentle hydration of IV fluids. 2.Anemia of chronic illness. No indication of acute bleeding at this time. Nephrology is on workup with black stools and blood work, pending those results. 3.Hypertension, controlled. 4.Electrolyte imbalance has been improving on oral bicarb. I appreciate the Nephrology input. We w ill follow their recommendations. MFS/MODL Voice ID: [id number] Report ID: [id number]
[2021-03-14] MEDS: FERROUS SULFATE 325 MG TAB PO SCH (09:48)
[2021-03-14] MEDS: AMLODIPINE 5 MG TAB PO SCH (09:48)
[2021-03-14] MEDS: VITAMIN D 1000 UNIT TAB PO SCH (09:48)
[2021-03-14] MEDS: allopurinoL 100 MG TAB PO SCH (09:48)
[2021-03-14] MEDS: FAMOTIDINE 20 MG TAB PO SCH (09:48)
[2021-03-14] MEDS: METOPROLOL TAR 50 MG TAB PO SCH (09:48)
[2021-03-14] MEDS: ATORVASTATIN 20 MG TAB PO SCH (09:48)
[2021-03-14] MEDS: SODIUM BICARB 325 MG TAB PO SCH ×2 (09:48→13:23)
[2021-03-14] MEDS: HYDRALAZINE HCL 10 MG TABLET PO SCH (09:48)
[2021-03-14] MEDS: D5 0.45 NS 1,000 ML IV SCH (09:49)
[2021-03-14] MEDS ORDERED: SOD FERRIC GLUC COMPLX/SUCROSE 250 MG in NA CHLORIDE 0.9% 250 ML IV SCH (11:00)
--- NOTE | 2021-03-14 12:04 | PN ---
Date of Progress Note: 03/14/2021 Subjective: The patient was admitted with acute kidney injury secondary to prerenal, complicated with acidosis. The patient was started on IV hydration, kidney function started trending towards her baseline. The patient feeling better. Dizziness has been subsided. Physical Examination: Vital Signs: When I saw the patient; blood pressure 146/69, pulse of 60, afebrile. The patient had good urine output. Chest: Clear to auscultation. Heart: S1, S2. Regular. Abdomen: Soft, nontender. Extremities: No edema. Neurologic: Alert. No focality. Laboratory Data: WBC 5.7, H and H 7.9/24.2, platelets 140. Sodium 145, potassium 4.9, bicarb 19, chloride 119, BUN 45, creatinine 3.2, calcium 8, phosphorus 4.6, uric acid 5.3, iron saturation of 21, ferritin 134, albumin 3, corrected calcium 8.8. PTH 122. Vitamin D still pending. TSH 3.4. UA; +3 protein. Current Medications: The patient on include; 1. Albuterol. 2. Amlodipine 10 mg. 3. Metoprolol 50 b.i.d. 4. Sodium bicarb 650 t.i.d. 5. Pepcid. 6. IV fluid. 7. Cholecalciferol. Assessment And Plan: 1. Acute kidney injury on advanced chronic kidney disease secondary to prerenal, no hyperkalemia, acidosis, improving. I am going to go ahead and discontinue IV fluid and we will monitor the patient. The patient cleared from the Renal standpoint for discharge planning. 2. Acidosis, non-anion gap metabolic acidosis secondary to normal saline, recovered. I will discontinue IV fluid. Continue oral bicarb. 3. Hyperchloremic acidosis as above. 4. Hyperkalemia, resolved. 5. Iron deficiency anemia. We will start the patient on IV iron. Discussed with the patient. The patient had colonoscopy [address] Carey. Discussed with the patient that she going to need EGD. I spoke with daughter also, agreed. 6. Hypertension, controlled, optimal. Continue current medications. Please avoid any NINI inhibitor or ARB. time spend exam the patient face to face , placing order , reviewing the data of lab and radiology , discussing with the staff including nusing , discussing with other kumar member including hospitalist and other design sales consultant 45 min MA/CUAUHTEMOC Voice ID: [id number] Report ID: [id number] SANDRA
[2021-03-14 17:46] VITALS: BP 143/74; TEMP 97.9
[2021-03-18 11:39] LABS: Vitamin D 1,25-Dihydroxy Total 13 pg/mL (18-72); Vitamin D,1,25-OH2, D2 <8 pg/mL
== END 2021-03-14 18:26 | disposition home or self-care (01) | DRG 683 ==
LOC: ER 12:09 → OBSVTOIN 14:05 → ERHOLD 14:05 → INTOOBSV 14:05 → 2ND 17:13 → OBSVTOIN 03-14 07:59
PROVIDERS: ADMIT Internal Medicine; ATTEND Internal Medicine
DX: N17.9 Acute kidney failure, unspecified (principal); E87.2 Acidosis; F17.210 Nicotine dependence, cigarettes, uncomplicated; I12.9 Hypertensive chronic kidney disease with stage 1 through stage 4 chronic kidney disease, or unspecified chronic kidney disease; N18.4 Chronic kidney disease, stage 4 (severe); K21.9 Gastro-esophageal reflux disease without esophagitis; E78.5 Hyperlipidemia, unspecified; E87.5 Hyperkalemia; E87.8 Other disorders of electrolyte and fluid balance, not elsewhere classified; D50.9 Iron deficiency anemia, unspecified; D63.1 Anemia in chronic kidney disease; E86.0 Dehydration; Z88.5 Allergy status to narcotic agent; Z88.0 Allergy status to penicillin; Z79.899 Other long term (current) drug therapy; Z90.49 Acquired absence of other specified parts of digestive tract; Z86.16 Personal history of COVID-19; Z90.711 Acquired absence of uterus with remaining cervical stump; Z20.822 Contact with and (suspected) exposure to COVID-19
CPT/HCPCS: 36415; 71045; 74176; 76377; 80048; 80069; 80076; 81003; 82274; 82652; 82728; 82746; 82947; 83540; 83690; 83735; 83880; 83970; 84443; 84466; 84484; 84550; 85025; 85044; 85610; 87086; 87088; 93005; 96361; 96374; 99285; G0378; J2916; J7030; J7050; J7799; U0003

== ENCOUNTER 2021-06-18 13:22 | Inpatient (IN) | payer OTHER ==
--- OUTSIDE RECORDS SUMMARY | 2021-06-18 15:08 | XMS REPORT | Continuity of Care Document ---
:[address] [facility] t Address [address] [place] [address] Care Team Providers Name Role Phone Isamar CAAL Attending Clinician Unavailable JUSTO MA Attending Clinician Unavailable Payers Payer Name Policy Type Policy Number Effective Date Expiration Date Sherman GONZALES [id number] 2020 00:00:00 Problems This patient has no known problems. Allergies, Adverse Reactions, Alerts Allergy Allergy Status Severity Reaction(s) Onset Inactive Treating Comm ents Source Name Type Date Date Clinician CODEINE DRUG Active Hives 2014-04 [facility]I 1-30 ity of 00:00: [address] MORPHINE DRUG Active Hives 2014-04 [facility] INGR[facility]I 1-30 ity of 00:00: [address] PENICILL DRUG Active Hives 2014-04 [facility] IN INGREDI 1-30 ity of 00:00: [address] Medications This patient has no known medications. Procedures This patient has no known procedures. Encounters Start End Encounter Admission Attending Care Care Encounter Source Date/Time Date/Time Type Type Clinicians Facility Department ID 2020-12-16 2020-12-16 Outpatient Andre CAAL [facility] [id number] [facility] 11:00:00 11:00:00 ALISIA [facility] 2020-01-27 2020-01-27 Outpatient DANNY MA MED [id number] [facility] 10:12:00 23:59:00 GUERLINE Results This patient has no known results.
[2021-06-18] MEDS ORDERED: ACETAMINOPHEN 500 MG TAB PO PRN (16:20)
[2021-06-18] MEDS ORDERED: ONDANSETRON 4 MG/2 ML VIAL IV PRN (16:20)
[2021-06-18 17:01] LABS: Hematocrit 27.3 % (36.0-45.0); Lymphocytes % 31.3 % (15.3-44.8); MPV 9.7 fL (7.6-11.3); RBC Red Blood Cell Count 2.72 M/uL (3.86-4.86)
[2021-06-18 17:19] LABS: Albumin 3.6 g/dL (3.4-5.0); Bilirubin Total 0.3 mg/dL (0.2-1.0); Magnesium 1.5 mg/dL (1.8-2.4); Phosphorus 4.7 mg/dL (2.5-4.9); Potassium 4.6 mmol/L (3.5-5.1); Protein, Total 6.7 g/dL (6.4-8.2)
[2021-06-18] MEDS: NA CHLORIDE 0.9% 1,000 ML IV SCH (17:34)
[2021-06-18] MEDS: HEPARIN 5000 UNIT/ML 1 ML VIAL SQ SCH (17:48)
--- NOTE | 2021-06-18 17:48 | P.HP ---
Certification for Inpatient Patient admitted to: Inpatient With expected LOS: >2 Midnights Practitioner: I am a practitioner with admitting privileges, knowledge of patient current condition, hospital course, and medical plan of care. Services: Services provided to patient in accordance with Admission requirements found in Title 42 Section 412.3 of the Code of Federal Regulations Patient History Date of Service: 06/18/21 Reason for admission: Abnormal labs History of Present Illness: 65-year-old woman with a history of chronic kidney disease, hypertension and hyperlipidemia was referred for direct admission by her opal miner Dr. Mejias due to hyperkalemia and elevated creatinine indicating acute renal failure. Dr. Mejias wish to admit patient for IV hydration. Patient has no complaint. She states she feels well, states she is urinating well, denies any chest pain. She also denies any fever. She denies any nausea vomiting or diarrhea that might be an indication for dehydration. Allergies codeine Allergy (Verified 06/08/19 09:15) itching, crawling sensation morphine Allergy (Verified 06/08/19 09:15) itching, rash Penicillins Allergy (Verified 06/08/19 09:15) Anaphylaxis Home Medications: Cholecalciferol (Vitamin D3) [Vitamin D3] 2,000 unit PO DAILY 06/08/19 Ferrous Sulfate [Iron] 325 mg PO DAILY 06/08/19 Metoprolol Tartrate [Lopressor*] 50 mg PO DAILY 02/21/20 Hydralazine [Apresoline*] 10 mg PO BID 12/15/20 Amlodipine [Norvasc] 10 mg PO DAILY 03/12/21 Atorvastatin Calcium [Lipitor] 20 mg PO DAILY 03/12/21 allopurinoL [Zyloprim] 100 mg PO TID 03/12/21 Sodium Bicarbonate 2 tab PO BID 06/18/21 - Past Medical/Surgical History Has patient received pneumonia vaccine in the past: No Diabetic: No -: leukemia -: kidney stones -: hypertension -: gerd -: gall bladder removal -: partial hysterectomy - Family History Sister -: Diabetes, Cancer Notes: breast cancer. thyroid Mother -: Cancer Notes: uterine daughter -: Cancer Notes: thyroid dad -: Diabetes, Cancer Notes: colon - Social History Smoking Status: Current every day smoker Alcohol use: Yes CD- Drugs: No Caffeine use: No Place of Residence: Home Review of Systems Other: Except as documented, all other systems reviewed and negative. Physical Examination - Vital Signs Temperature: 97.1 F Blood Pressure: 117/59 Pulse: 64 Respirations: 18 Pulse Ox (%): 99 - Physical Exam General: Alert, In no apparent distress, Oriented x3 HEENT: Atraumatic, PERRLA, Mucous membr. moist/pink, Sclerae nonicteric Neck: Supple, JVD not distended Respiratory: Clear to auscultation bilaterally, Normal air movement Cardiovascular: No edema, Regular rate/rhythm, Normal S1 S2 Gastrointestinal: Normal bowel sounds, Soft and benign, Non-distended, No tenderness Musculoskeletal: No swelling, No tenderness Integumentary: No rashes, No erythema, No cyanosis Neurological: Normal speech, Normal strength at 5/5 x4 extr, Cranial nerves 3-12 intact Lymphatics: No axilla or inguinal lymphadenopathy - Studies Laboratory Data (last 24 hrs) 06/18/21 16:40: Sodium 142, Potassium 4.6, BUN 66 H, Creatinine 4.19 H, Glucose 72 L, Phosphorus 4.7, Magnesium 1.5 L, Total Bilirubin 0.3, AST 12 L, ALT 16, Alkaline Phosphatase 88 06/18/21 16:40: WBC 6.40, Hgb 9.1 L, Hct 27.3 L, Plt Count 139 L Assessment and Plan - Problems (Diagnosis) (1) Hyperlipidemia Current Visit: Yes Status: Acute (2) DARREN (acute kidney injury) Current Visit: No Status: Acute (3) HTN (hypertension) Current Visit: No Status: Acute - Plan Admit the patient to the medical floor. Hydrate with IV normal saline. Continue home medications for metabolic acidosis. Patient also takes Veltassa for hyperkalemia which will be continued. Consult to nephrology. Continue home antihypertensives. Monitor renal function for improvement with IV fluid. - Advance Directives Does patient have a Living Will: No Does patient have a Durable POA for Healthcare: No
[2021-06-18] MEDS: SODIUM BICARB 325 MG TAB PO SCH (21:58)
[2021-06-19] MEDS: HEPARIN 5000 UNIT/ML 1 ML VIAL SQ SCH ×3 (01:57→16:46)
[2021-06-19] MEDS: NA CHLORIDE 0.9% 1,000 ML IV SCH ×2 (02:02→09:16)
[2021-06-19 04:14] LABS: Absolute Lymphocytes (CBC) 2.2 K/uL (0.7-4.9); Hematocrit 25.1 % (36.0-45.0); Lymphocytes % 31.7 % (15.3-44.8); MPV 10.1 fL (7.6-11.3); RBC Red Blood Cell Count 2.52 M/uL (3.86-4.86)
[2021-06-19 05:05] LABS: Phosphorus 4.6 mg/dL (2.5-4.9); Potassium 4.5 mmol/L (3.5-5.1); Thyroid Stimulating Hormone 2.05 uIU/mL (0.360-3.740); Uric Acid 3.3 mg/dL (2.6-6.0)
[2021-06-19 05:07] LABS: Magnesium 1.3 mg/dL (1.8-2.4)
[2021-06-19] MEDS ORDERED: Magnesium Sulfate 2gm IVPB 2 G/50 ML BAG IV ONE (07:32)
--- NOTE | 2021-06-19 08:30 | RAD REPORT ---
EXAM DESCRIPTION: US - Renal Ultrasound-Complete - 06/19/2021 12:13 am CLINICAL HISTORY: Acute renal failure, chronic renal failure COMPARISON: 2020 FINDINGS: The right kidney measures 9 cm with an increased echotexture. 1.5 centimeter complex cyst without significant change. The left kidney measures 11 cm with an increased echotexture. Several cysts. The largest measures 1.5 centimeters with Hydronephrosis is not seen. No gross abnormality of bladder is seen IMPRESSION: Increased renal echotexture consistent with parenchymal disease Stable 1.5 centimeter complex cyst right kidney paragraphs Simple cysts left kidney No hydronephrosis
[2021-06-19] MEDS: SODIUM BICARB 325 MG TAB PO SCH ×2 (09:16→20:25)
--- NOTE | 2021-06-19 14:27 | P.PN ---
Subjective Date of Service: 06/19/21 Chief Complaint: Abnormal labs Subjective: No new changes Physical Examination - Vital Signs Temperature: 97.2 F Blood Pressure: 136/58 Pulse: 68 Respirations: 17 Pulse Ox (%): 98 - Physical Exam General: Alert, In no apparent distress, Cooperative HEENT: Atraumatic, Normocephalic Respiratory: Clear to auscultation bilaterally, Normal air movement Cardiovascular: Regular rate/rhythm, Normal S1 S2 Gastrointestinal: Soft and benign, Non-distended Musculoskeletal: No clubbing, No swelling, No contractures Neurological: Normal speech, Normal affect - Studies Laboratory Data (last 24 hrs) 06/19/21 03:51: Uric Acid Cancelled 06/19/21 03:51: Sodium 144, Potassium 4.5, BUN 64 H, Creatinine 4.11 H, Glucose 89, Uric Acid 3.3, Phosphorus 4.6, Magnesium 1.3 L*, Triglycerides 95, Cholesterol 103, HDL Cholesterol 42, Cholesterol/HDL Ratio 2.45 06/19/21 03:51: WBC 6.90, Hgb 8.4 L, Hct 25.1 L, Plt Count 130 L 06/18/21 16:40: Sodium 142, Potassium 4.6, BUN 66 H, Creatinine 4.19 H, Glucose 72 L, Phosphorus 4.7, Magnesium 1.5 L, Total Bilirubin 0.3, AST 12 L, ALT 16, Alkaline Phosphatase 88 06/18/21 16:40: WBC 6.40, Hgb 9.1 L, Hct 27.3 L, Plt Count 139 L Assessment And Plan - Current Problems (Diagnosis) (1) Hyperlipidemia Current Visit: Yes Status: Acute (2) DARREN (acute kidney injury) Current Visit: No Status: Acute (3) DM2 (diabetes mellitus, type 2) Current Visit: No Status: Acute (4) Focal segmental glomerulosclerosis Current Visit: No Status: Acute (5) HTN (hypertension) Current Visit: No Status: Acute Physician Review Additional Text: 06/19/21 14:23 Assessment Patient is a 65-year-old female who presented as a direct admit by nephrology for evaluation of abnormal labs. She had elevated potassium and creatinine. Since her admission she has been on IV fluid without much change. Plan: Patient will need at least an additional day for IV fluid infusion Continue sodium bicarb for renal insufficiency Nephrology has been consulted Replace Magnesium IV DC when cleared by Nephrology
[2021-06-19 16:20] VITALS: BMI 23.9
[2021-06-20] MEDS: HEPARIN 5000 UNIT/ML 1 ML VIAL SQ SCH ×3 (00:18→17:16)
[2021-06-20] MEDS: NA CHLORIDE 0.9% 1,000 ML IV SCH ×4 (00:18→21:00)
--- NOTE | 2021-06-20 03:46 | CON ---
Date of Consultation: 06/19/2021 Chief Complaint: Acute kidney injury secondary to prerenal azotemia. History Of Present Illness: Patient has history of chronic kidney disease stage 4. Recently, she wa s found to have hyperkalemia and was treated with Veltassa. Potassium has improved. Patient has und erlying metabolic acidosis of mild degree and she was resumed on sodium bicarbonate tablets, although renal function has not improved despite the fact that patient increased p.o. fluid intake and patien t is admitted for IV fluids. She was started on normal saline. She tolerates IV fluids. She denies chest pain or palpitation. Past Medical History: Chronic kidney disease stage 4, hypertension, GERD, gallbladder removal, parti al hysterectomy, history of acute kidney injury. Family History: Diabetes mellitus in her sister. Cancer of the breast and thyroid in her sister. M other had uterine cancer. Daughter, thyroid cancer. Dad, diabetes and cancer of the colon. Social History: She denies tobacco, alcohol, or illicit drugs. Review of Systems: Constitutional : Denies fever, chills. Eyes: Denies vision changes. Ears, Nose, and Throat: Denie s sore throat or earache. Respiratory: Denies PND, orthopnea. Cardiovascular: Denies chest pain, palpitation, or syncope. GI: Denies nausea, vomiting. : Denies dysuria or hematuria. _ All other systems reviewed and all are negative. Physical Examination: General: Alert and oriented x3. Eyes: Anicteric sclerae. EOMI. Ears, Nose, Mouth, and Throat: Oral mucosa moist. No pallor. Neck: Supple. No bruits. Lungs: Diminished breath sounds at bases. Heart: S1, S2. No pericardial friction or rub. Abdomen: Soft, benign, nontender. No rebound, no guarding. Extremities: No edema, no clubbing, no cyanosis. NEUROLOGIC: Moving extremities. Cranial nerves intact. Laboratory Data: BUN 56, creatinine 4.96, sodium 142, potassium 4.6, glucose 72, phosphorus 4.7, mag nesium 1.5, AST 12, ALT 16, AP 88. WBC 6.4, hemoglobin 9.1, hematocrit 27.2, platelet count 139,000. Impression And Plan: 1.Acute kidney pain due to nonoliguric acute tubular necrosis with superimposed chronic kidney disea se stage 4. Plan is to continue IV fluids kidney function. Patient will have renal ultra sound to rule out hydronephrosis. Patient has urinalysis and urine culture is pending, although does not have UTI symptomatology at this point. 2.Hyperlipidemia. Continue lipid lowering medication. Patient does not have myalgia. Monitor for any evidence of myalgia. 3.Chronic kidney stage 4. Avoid nephrotoxic medication. Patient is not a candidate for nonsteroida l anti-inflammatory medication. 4.Hyperkalemia. Patient will take Veltassa. Monitor electrolytes. EB/MODL Voice ID: [id number] Report ID: [id number]
[2021-06-20 07:49] LABS: Absolute Lymphocytes (CBC) 1.7 K/uL (0.7-4.9); Hematocrit 26.4 % (36.0-45.0); Lymphocytes % 29.3 % (15.3-44.8); MPV 9.7 fL (7.6-11.3); RBC Red Blood Cell Count 2.67 M/uL (3.86-4.86)
[2021-06-20 08:03] LABS: Potassium 4.1 mmol/L (3.5-5.1)
--- NOTE | 2021-06-20 09:16 | P.PN ---
Subjective Date of Service: 06/20/21 Chief Complaint: Abnormal labs Subjective: Improving (Renal function is improving with IVF) Physical Examination - Vital Signs Temperature: 97.7 F Blood Pressure: 136/55 Pulse: 65 Respirations: 16 Pulse Ox (%): 98 - Physical Exam General: Alert, In no apparent distress, Cooperative HEENT: Atraumatic, Normocephalic, EOMI Neck: Supple Respiratory: Clear to auscultation bilaterally, Normal air movement Cardiovascular: Regular rate/rhythm, Normal S1 S2 Musculoskeletal: No clubbing, No swelling, No contractures Neurological: Normal speech, Normal affect - Studies Laboratory Data (last 24 hrs) 06/20/21 07:40: Sodium 144, Potassium 4.1, BUN 47 H, Creatinine 3.42 H, Glucose 91 06/20/21 07:40: WBC 5.70 D, Hgb 8.8 L, Hct 26.4 L, Plt Count 137 L 06/20/21 03:13: Magnesium 1.9 D Assessment And Plan - Current Problems (Diagnosis) (1) Hyperlipidemia Current Visit: Yes Status: Acute (2) DARREN (acute kidney injury) Current Visit: No Status: Acute (3) DM2 (diabetes mellitus, type 2) Current Visit: No Status: Acute (4) Focal segmental glomerulosclerosis Current Visit: No Status: Acute (5) HTN (hypertension) Current Visit: No Status: Acute Physician Review Additional Text: 06/19/21 14:23 Assessment Patient is a 65-year-old female who presented as a direct admit by nephrology for evaluation of abnormal labs. She had elevated potassium and creatinine. She is on room air. First signs of renal recovery today. Acute on chronic kidney injury Hypomagnesemia HTN HLD Plan: Renal function improving with IVF Continue sodium bicarb Nephrology is following as well Vasculitis panel pending DC when cleared by Nephrology 06/20/21 09:17
[2021-06-20] MEDS: SODIUM BICARB 325 MG TAB PO SCH ×2 (09:48→21:01)
[2021-06-20 11:27] LABS: Urine Appearance CLEAR (Clear); Urine Bilirubin NEGATIVE (Negative); Urine Blood 1+ (Negative); Urine Color YELLOW (Yellow); Urine Glucose NEGATIVE (Negative); Urine Protein 1+ (Negative); Urine Specific Gravity <=1.005 (1.005-1.030); Urine Urobilinogen 0.2 mg/dL (0.2-1.0)
[2021-06-20 13:04] LABS: Urine Bacteria <20 /HPF (<20); Urine RBC <5 /HPF (NONE SEEN)
[2021-06-20] MEDS ORDERED: HOME MED 1 EA UNK (Sodium Bicarbonate [Sodium Bicarbonate] 650 MG Tablet) PO SCH (21:00)
[2021-06-20] MEDS: HYDRALAZINE HCL 10 MG TABLET PO SCH (21:01)
[2021-06-20] MEDS: allopurinoL 100 MG TAB PO SCH (21:02)
[2021-06-21] MEDS: HEPARIN 5000 UNIT/ML 1 ML VIAL SQ SCH ×2 (00:06→10:01)
--- NOTE | 2021-06-21 02:51 | PN ---
Date of Progress Note: 06/20/2021 Chief Complaint: Acute kidney injury secondary to prerenal azotemia with superimposed chronic kidney disease stage 4. Subjective: The patient has history of chronic kidney disease. Previously, she had biopsy done, whi ch showed secondary focal segmental glomerulosclerosis. She has history of microscopic hematuria and previously, she was seen by urologist for workup. The patient has history of hyperkalemia and was treated with Veltassa. Potassium level has improved, although metabolic acidosis was uncontrolled despite sodium bicarbonate tablets. The patient was ad mitted to the hospital for IV fluids to control hyperazotemia. The patient did not have uremic sympt omatology. She is tolerating IV fluids and renal function improved since yesterday. Review of Systems: Denies fever or chills. Physical Examination: Lungs: Clear to auscultation bilaterally. Heart: S1, S2. Abdomen: Soft, benign. Extremities: No edema. Impression And Plan: 1.Acute kidney injury secondary to prerenal azotemia. The patient denies nonsteroidal anti-inflamma tory medication. The patient is tolerating normal saline. She will continue current treatment. The patient was scheduled to have ultrasound to rule out hydronephrosis. The patient denies lower urina ry tract symptoms. Denies dysuria and denies gross hematuria. 2.Chronic kidney disease stage 4. Avoid nephrotoxic medication. 3.Hyperkalemia. The patient will continue Veltassa and potassium level improved. 4.Metabolic acidosis. Continue sodium bicarbonate tablet. EB/MODL Voice ID: [id number] Report ID: [id number]
[2021-06-21 06:27] LABS: Potassium 4.3 mmol/L (3.5-5.1)
[2021-06-21] MEDS: NA CHLORIDE 0.9% 1,000 ML IV SCH (06:56)
[2021-06-21 08:18] VITALS: BP 140/58; TEMP 97.3
[2021-06-21] MEDS ORDERED: FERROUS SULFATE 325 MG TAB PO SCH (09:00)
[2021-06-21] MEDS ORDERED: VITAMIN D 1000 UNIT TAB PO SCH (09:00)
[2021-06-21] MEDS ORDERED: METOPROLOL TAR 50 MG TAB PO SCH (09:00)
[2021-06-21] MEDS ORDERED: AMLODIPINE 10 MG TAB PO SCH (09:00)
[2021-06-21] MEDS ORDERED: HOME MED 1 EA UNK (Cholecalciferol (Vitamin D3) [Vitamin D3] 2000 UNIT Capsule) PO SCH (09:00)
[2021-06-21] MEDS ORDERED: ATORVASTATIN 20 MG TAB PO SCH (09:00)
--- NOTE | 2021-06-21 09:36 | P.DS ---
Admission Date: 06/18/21 Discharge Date: 06/21/21 Disposition: ROUTINE DISCHARGE Discharge Condition: GOOD Reason for Admission: Abnormal labs - Problems (1) Hyperlipidemia Current Visit: Yes Status: Acute (2) DARREN (acute kidney injury) Current Visit: No Status: Acute (3) DM2 (diabetes mellitus, type 2) Current Visit: No Status: Acute (4) Focal segmental glomerulosclerosis Current Visit: No Status: Acute (5) HTN (hypertension) Current Visit: No Status: Acute Hospital Course: Patient is a 65-year-old female who presented as a direct admit by nephrology for evaluation of abnormal labs. She had elevated potassium and creatinine. Partial improvement of renal function with IV fluid. Is also a vasculitis panel sent by nephrology. Nephrology estimate the patient might end up in dialysis in 6 to 12 months, at which point we will need to coordinate for access. Otherwise, she can be discharged today. Vital Signs/Physical Exam: Temp Pulse Resp BP Pulse Ox 97.3 F 65 18 140/58 L 99 06/21/21 08:00 06/21/21 08:00 06/21/21 08:00 06/21/21 08:00 06/21/21 08:00 Laboratory Data at Discharge: WBC 5.70 K/uL (4.3-10.9) D 06/20/21 07:40 Hgb 8.8 g/dL (12.0-15.0) L 06/20/21 07:40 Hct 26.4 % (36.0-45.0) L 06/20/21 07:40 Plt Count 137 K/uL (152-406) L 06/20/21 07:40 Sodium 143 mmol/L (136-145) 06/21/21 05:34 Potassium 4.3 mmol/L (3.5-5.1) 06/21/21 05:34 BUN 40 mg/dL (7-18) H 06/21/21 05:34 Creatinine 3.04 mg/dL (0.55-1.3) H 06/21/21 05:34 Glucose 86 mg/dL (74-106) 06/21/21 05:34 Uric Acid 3.3 mg/dL (2.6-6.0) 06/19/21 03:51 Uric Acid Cancelled 06/19/21 03:51 Phosphorus 4.6 mg/dL (2.5-4.9) 06/19/21 03:51 Magnesium 1.9 mg/dL (1.8-2.4) D 06/20/21 03:13 Total Bilirubin 0.3 mg/dL (0.2-1.0) 06/18/21 16:40 AST 12 U/L (15-37) L 06/18/21 16:40 ALT 16 U/L (12-78) 06/18/21 16:40 Alkaline Phosphatase 88 U/L (45-117) 06/18/21 16:40 Triglycerides 95 mg/dL (<150) 06/19/21 03:51 Cholesterol 103 mg/dL (<200) 06/19/21 03:51 HDL Cholesterol 42 mg/dL (40-60) 06/19/21 03:51 Cholesterol/HDL Ratio 2.45 06/19/21 03:51 Home Medications: Cholecalciferol (Vitamin D3) [Vitamin D3] 2,000 unit PO DAILY 06/08/19 Ferrous Sulfate [Iron] 325 mg PO DAILY 06/08/19 Metoprolol Tartrate [Lopressor*] 50 mg PO DAILY 02/21/20 Hydralazine [Apresoline*] 10 mg PO BID 12/15/20 Amlodipine [Norvasc*] 10 mg PO DAILY 03/12/21 Atorvastatin Calcium [Lipitor*] 20 mg PO DAILY 03/12/21 allopurinoL [Zyloprim*] 100 mg PO TID 03/12/21 Sodium Bicarbonate 2 tab PO BID 06/18/21 Na Bicarb Tab [Sodium Bicarb 325 MG Tab*] 650 mg PO BID #120 tab 06/21/21 New Medications: Na Bicarb Tab [Sodium Bicarb 325 MG Tab*] 650 mg PO BID #120 tab
[2021-06-21] MEDS: allopurinoL 100 MG TAB PO SCH (10:01)
[2021-06-21] MEDS: SODIUM BICARB 325 MG TAB PO SCH (10:01)
[2021-06-21] MEDS: HYDRALAZINE HCL 10 MG TABLET PO SCH (10:01)
== END 2021-06-21 10:35 | disposition home or self-care (01) | DRG 682 ==
LOC: 2ND 15:05
PROVIDERS: ADMIT Internal Medicine; ATTEND Internal Medicine
DX: I12.9 Hypertensive chronic kidney disease with stage 1 through stage 4 chronic kidney disease, or unspecified chronic kidney disease (principal); N17.0 Acute kidney failure with tubular necrosis; E87.2 Acidosis; N18.4 Chronic kidney disease, stage 4 (severe); E78.5 Hyperlipidemia, unspecified; E11.22 Type 2 diabetes mellitus with diabetic chronic kidney disease; F17.210 Nicotine dependence, cigarettes, uncomplicated; E87.5 Hyperkalemia; E83.42 Hypomagnesemia; Z20.822 Contact with and (suspected) exposure to COVID-19
CPT/HCPCS: 36415; 76770; 80048; 80053; 80061; 81001; 83735; 84100; 84443; 84550; 85025; 86021; 86334; 87086; 87088; J1644; J3475; J7030; U0003

== ENCOUNTER 2021-07-04 14:03 | Observation (INO) | payer OTHER ==
--- OUTSIDE RECORDS SUMMARY | 2021-07-04 14:07 | XMS REPORT | Continuity of Care Document ---
:1955 Author Organization [facility] t Address [address] [place] [address] Dr. Herrera [address] [place] [id number] Care Team Providers Name Role Phone Isamar CAAL Attending Clinician Unavailable Payers Payer Name Policy Type Policy Number Effective Date Expiration Date Sherman GONZALES [id number] 2020 00:00:00 Problems This patient has no known problems. Allergies, Adverse Reactions, Alerts Allergy Allergy Status Severity Reaction(s) Onset Inactive Treating Comm ents Source Name Type Date Date Clinician CODEINE DRUG Active Hives 2014-04 [facility] 30 ity of 00:00: [address] MORPHINE DRUG Active Hives 2014-04 [facility] 130 ity of 00:00: [address] PENICILL DRUG Active Hives 2014-04 [facility] IN INGR[facility]I 30 ity of 00:00: [address] Medications This patient has no known medications. Procedures This patient has no known procedures. Encounters Start End Encounter Admission Attending Care Care Encounter Source Date/Time Date/Time Type Type Clinicians Facility Department ID 2020-12-16 2020-12-16 Outpatient Andre CAAL [facility] [id number] [facility] 11:00:00 11:00:00 ALISIA itbas[facility] Results This patient has no known results.
[2021-07-04 15:00] LABS: Absolute Lymphocytes (CBC) 1.6 K/uL (0.7-4.9); Hematocrit 24.9 % (36.0-45.0); Lymphocytes % 22.3 % (15.3-44.8); MPV 8.7 fL (7.6-11.3); RBC Red Blood Cell Count 2.53 M/uL (3.86-4.86)
[2021-07-04 15:14] LABS: Potassium 6.2 mmol/L (3.5-5.1)
[2021-07-04] MEDS ORDERED: ONDANSETRON 4 MG/2 ML VIAL IV PRN (15:42)
--- NOTE | 2021-07-04 15:47 | ER ---
Nurse's Notes [facility] Name: Dawn Rolle Age: 65 yrs Sex: Female : 1955 Arrival Date: 07/04/2021 Time: 14:14 Bed 28 Private MD: Diagnosis: Chronic kidney disease, unspecified;Hyperkalemia Presentation: 07/04 14:17 Chief complaint: Patient states: Potassium high this morning. Sent in by Dr. Mejias. Feet ll1 swollen. Coronavirus screen: Vaccine status: Patient reports receiving the 2nd dose of the covid vaccine. Client denies travel out of the [place] in the last 14 days. At this time, the client does not indicate any symptoms associated with coronavirus-19. Ebola Screen: Patient denies travel to an Ebola-affected area in the 21 days before illness onset. Initial Sepsis Screen: Does the patient meet any 2 criteria? No. Patient's initial sepsis screen is negative. Does the patient have a suspected source of infection? No. Patient's initial sepsis screen is negative. Risk Assessment: Do you want to hurt yourself or someone else? Patient reports no desire to harm self or others. Onset of symptoms was July 04, 2021. 14:17 Method Of Arrival: Ambulatory ll1 14:17 Acuity: MECCA 3 ll1 Historical: - Allergies: 14:18 Codeine; ll1 14:18 Morphine; ll1 14:18 PENICILLINS; ll1 - PMHx: 14:18 Hypertension; Kidney stones; kidney disease; Leukemia; ll1 - PSHx: 14:18 Cholecystectomy; ll1 - Immunization history:: Client reports receiving the 2nd dose of the Covid vaccine. - Social history:: Smoking status: unknown. Screenin:11 Abuse screen: Denies threats or abuse. Nutritional screening: No deficits noted. st1 Tuberculosis screening: No symptoms or risk factors identified. Fall Risk None identified. No fall in past 12 months (0 pts). No secondary diagnosis (0 pts). IV access (20 points). Ambulatory Aid- None/Bed Rest/Nurse Assist (0 pts). Gait- Normal/Bed Rest/Wheelchair (0 pts) Mental Status- Oriented to own ability (0 pts). Total Forte Fall Scale indicates No Risk (0-24 pts). Vital Signs: 14:17 BP 125 / 66; Pulse 80; Resp 16; Temp 97.8; Pulse Ox 99% ; Pain 0/10; ll1 ED Course: 14:14 Patient arrived in ED. ds1 14:18 [facility]C [facility] kb 14:18 Jimmy Vargas DO is Attending Physician. kb 14:18 Triage completed. ll1 14:18 Arm band placed on Patient placed in an exam room, on a stretcher. ll1 14:31 Kirby Piña, ROBERTO is Primary Nurse. bp 14:49 Inserted saline lock: 20 gauge in right antecubital area, using aseptic technique. bp Blood collected. 15:14 Notified Nurse Practitioner and/or Physician Signal Fitter of a critical lab result(s), ab2 Potassium 6.2. 15:46 Ovidio Burgess MD is Hospitalizing Provider. kb 19:41 Primary Nurse role handed off by Kirby Piña, RN mw2 Administered Medications: 15:30 Drug: D50W 50 ml Route: IVP; Site: right antecubital; bp 15:30 Drug: Calcium Gluconate 1 grams Route: IVPB; Infused Over: 60 mins; Site: right bp antecubital; 15:45 Drug: Insulin Regular Human 10 units {Co-Signature: [email or web address] (Jacob Haque RN).} Route: bp IVP; Site: right antecubital; 15:45 Drug: Albuterol 2.5 mg Route: Inhalation; bp 15:45 Drug: Kayexalate (polystyrene) 30 grams Route: PO; bp 16:00 Drug: Albuterol 2.5 mg Route: Inhalation; bp 16:10 Drug: NS 0.9% 1000 ml Route: IV; Rate: 100 ml/hr; Site: right antecubital; bp 16:15 Drug: Albuterol 2.5 mg Route: Inhalation; bp 17:19 Drug: Sodium Bicarbonate 650 mg Route: PO; bp Outcome: 15:46 Decision to Hospitalize by Provider. kb 07/05 10:41 Patient left the ED. gd Signatures: Olga Jernigan FNP-C INCOME TAX INVESTIGATOR-Andreina Shah ds1 Kirby Piña RN RN bp Marilu Anthony mw2 Jovita Salas RN RN ll1 ManriqueBaldo Alexis ab2 Kendal Calderón, RN RN st1 Jacob Haque RN jd3
--- NOTE | 2021-07-04 15:47 | P.HP ---
Certification for Inpatient Patient admitted to: Observation With expected LOS: <2 Midnights Patient will require the following post-hospital care: None Practitioner: I am a practitioner with admitting privileges, knowledge of patient current condition, hospital course, and medical plan of care. Services: Services provided to patient in accordance with Admission requirements found in Title 42 Section 412.3 of the Code of Federal Regulations Patient History Date of Service: 07/04/21 Reason for admission: Elevated potassium, worsening kidney function. 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 She had done routine lab and she was found to have hyperkalemia potassium was 6.3 so she was asked to be evaluated in the emergency room for medical management. She reports no chest pain, dizzy spells, fever, chills, nausea, vomiting episode. She also did not report any worsening lower extremity swelling or shortness of breath. Allergies codeine Allergy (Verified 06/08/19 09:15) itching, crawling sensation morphine Allergy (Verified 06/08/19 09:15) itching, rash Penicillins Allergy (Verified 06/08/19 09:15) Anaphylaxis Home Medications: Cholecalciferol (Vitamin D3) [Vitamin D3] 2,000 unit PO DAILY 06/08/19 Ferrous Sulfate [Iron] 325 mg PO DAILY 06/08/19 Metoprolol Tartrate [Lopressor*] 50 mg PO DAILY 02/21/20 Hydralazine [Apresoline*] 10 mg PO BID 12/15/20 Amlodipine [Norvasc*] 10 mg PO DAILY 03/12/21 Atorvastatin Calcium [Lipitor*] 20 mg PO DAILY 03/12/21 allopurinoL [Zyloprim*] 100 mg PO TID 03/12/21 Sodium Bicarbonate 2 tab PO BID 06/18/21 Na Bicarb Tab [Sodium Bicarb 325 MG Tab*] 650 mg PO BID #120 tab 06/21/21 - Past Medical/Surgical History Diabetic: No -: leukemia -: kidney stones -: hypertension -: gerd -: gall bladder removal -: partial hysterectomy - Family History Sister -: Diabetes, Cancer Notes: breast cancer. thyroid Mother -: Cancer Notes: uterine daughter -: Cancer Notes: thyroid dad -: Diabetes, Cancer Notes: colon - Social History Alcohol use: Yes CD- Drugs: No Caffeine use: No Review of Systems Unremarkable Physical Examination - Physical Exam General: Alert, Oriented x3 HEENT: Atraumatic, Normocephalic Neck: Supple Respiratory: Normal air movement Cardiovascular: Regular rate/rhythm, Normal S1 S2 Gastrointestinal: Soft and benign Musculoskeletal: No swelling Neurological: Normal speech, Normal strength at 5/5 x4 extr, Cranial nerves 3-12 intact - Studies Laboratory Data (last 24 hrs) 07/04/21 14:50: Sodium 136, Potassium 6.2 H*, BUN 68 H, Creatinine 4.11 H, Glucose 156 H 07/04/21 14:50: WBC 7.1, Hgb 8.4 L, Hct 24.9 L, Plt Count 178 Assessment and Plan - Plan 1. Hyperkalemia: Potassium is elevated at 6.3. Etiology of hyperkalemia is perhaps dietary indiscretion in the setting of advanced chronic kidney disease. We will continue patient on renal diet and monitor potassium level after medical therapy. Follow labs on daily basis. 2. CKD stage IV progressing to 5: There is significant decline in renal function over time. We will hydrate her gently. Monitor renal function panel nephrology recommendation. We will dose medication for estimated glomerular filtration. There is significant concern for her needing renal replacement therapy soon. 3. Hypertension: We will monitor vital signs per unit protocol and continue antihypertensive medications. 4. Hyperlipidemia: We will continue statin therapy. Prophylaxis: Lovenox for DVT prophylaxis. CODE STATUS: Full code. - Advance Directives Does patient have a Living Will: No Does patient have a Durable POA for Healthcare: No - Code Status/Comfort Care Code Status: Full Code
--- NOTE | 2021-07-04 15:47 | EDPHYS ---
Physician Documentation [facility] Name: Dawn Rolle Age: 65 yrs Sex: Female : 1955 Arrival Date: 07/04/2021 Time: 14:14 Bed 28 Private MD: ED Physician Jimmy Vargas HPI: 07/04 15:41 This 65 yrs old Female presents to ER via Ambulatory with complaints of kb Abnormal Lab Results. 15:43 Pt states she had labs drawn this morning and Dr Mejias's office told her to come to the ER for elevated potassium. Pt states she has no symptoms. Onset: The symptoms/episode began/occurred today. Severity of symptoms: At their worst the symptoms were very mild in the emergency department the symptoms are unchanged. The patient has not experienced similar symptoms in the past. The patient has not recently seen a physician. Historical: - Allergies: 14:18 Codeine; ll1 14:18 Morphine; ll1 14:18 PENICILLINS; ll1 - PMHx: 14:18 Hypertension; Kidney stones; kidney disease; Leukemia; ll1 - PSHx: 14:18 Cholecystectomy; ll1 - Immunization history:: Client reports receiving the 2nd dose of the Covid vaccine. - Social history:: Smoking status: unknown. ROS: 15:41 Constitutional: Negative for fever, chills, and weight loss. kb 15:41 All other systems are negative. Exam: 15:41 Constitutional: This is a well developed, well nourished patient who is awake, alert, kb and in no acute distress. Head/Face: Normocephalic, atraumatic. ENT: Moist Mucous membranes Cardiovascular: Regular rate and rhythm with a normal S1 and S2. No gallops, murmurs, or rubs. No pulse deficits. Respiratory: Respirations even and unlabored. No increased work of breathing. Talking in full sentences Skin: Warm, dry with normal turgor. Normal color. MS/ Extremity: Pulses equal, no cyanosis. Neurovascular intact. Full, normal range of motion. Neuro: Awake and alert, GCS 15, oriented to person, place, time, and situation. Moves all extremities. Normal gait. Psych: Awake, alert, with orientation to person, place and time. Behavior, mood, and affect are within normal limits. Vital Signs: 14:17 BP 125 / 66; Pulse 80; Resp 16; Temp 97.8; Pulse Ox 99% ; Pain 0/10; ll1 MDM: 14:18 Patient medically screened. kb 15:29 Data reviewed: vital signs, nurses notes. Data interpreted: Pulse oximetry: on room air kb is 99 %. Interpretation: normal. 15:37 Counseling: I had a detailed discussion with the patient and/or guardian regarding: the kb historical points, exam findings, and any diagnostic results supporting the discharge/admit diagnosis, lab results, the need for further work-up and treatment in the hospital. Physician consultation: Gilmar Haney MD was contacted at 15:30, wants pt admitted to hospitalist. ED course: Dr Mejias consulted. Simón kayexalate added, pt admitted for obs with nephrology consult, NS at 100ml/hr and sodium bicarbonate 650mg PO QID. . 15:40 Physician consultation: Ovidio Burgess MD was contacted at 15:40, regarding admission, kb to the telemetry unit. patient's condition, and will see patient in ED. 07/04 14:18 Order name: CBC with Diff; Complete Time: 15:06 kb 07/04 14:18 Order name: Basic Metabolic Panel; Complete Time: 15:15 kb 07/04 15:30 Order name: COVID-19 SARS RT PCR (Document "Date of Onset" if Symptomatic) kb 07/04 15:47 Order name: CBC with Automated Diff EDMS 07/04 15:47 Order name: CBC with Automated Diff EDMS 07/04 19:04 Order name: Glucose, Ancillary Testing EDMS 07/04 20:18 Order name: Comprehensive Metabolic Panel EDMS 07/05 07:51 Order name: Glucose, Ancillary Testing EDMS 07/04 14:18 Order name: IV Start; Complete Time: 14:49 kb 07/04 14:18 Order name: EKG; Complete Time: 14:19 kb 07/04 14:18 Order name: EKG - Nurse/Tech; Complete Time: 15:11 kb 07/04 15:47 Order name: Renal EDMS Administered Medications: 15:30 Drug: D50W 50 ml Route: IVP; Site: right antecubital; bp 15:30 Drug: Calcium Gluconate 1 grams Route: IVPB; Infused Over: 60 mins; Site: right bp antecubital; 15:45 Drug: Insulin Regular Human 10 units {Co-Signature: [email or web address] (Jacob Haque RN).} Route: bp IVP; Site: right antecubital; 15:45 Drug: Albuterol 2.5 mg Route: Inhalation; bp 15:45 Drug: Kayexalate (polystyrene) 30 grams Route: PO; bp 16:00 Drug: Albuterol 2.5 mg Route: Inhalation; bp 16:10 Drug: NS 0.9% 1000 ml Route: IV; Rate: 100 ml/hr; Site: right antecubital; bp 16:15 Drug: Albuterol 2.5 mg Route: Inhalation; bp 17:19 Drug: Sodium Bicarbonate 650 mg Route: PO; bp Disposition: 07/05 18:16 Co-signature as Attending Physician, Jimmy FINNEY was immediately available on-site ms3 in the Emergency Department for consultation in the care of the patient.. Disposition Summary: 07/04/21 15:46 Hospitalization Ordered Hospitalization Status: Observation kb Provider: Ovidio Burgess Condition: Stable kb Problem: new kb Symptoms: are unchanged kb Bed/Room Type: Standard kb Location: [facility] ER HOLD(07/04/21 19:58) vc1 Room Assignment: ERHOLD-(07/04/21 19:58) vc1 Diagnosis - Chronic kidney disease, unspecified kb - Hyperkalemia kb Discharge Instructions: - Discharge Summary Sheet jmm - Potassium Content of Foods jmm Forms: - Medication Reconciliation Form kb - SBAR form kb Signatures: Dispatcher [employer] EDMS Olga Jernigan, Kirby Plasencia, RN RN Jovita Yee RN RN ll1 Jimmy Vargas DO DO ms3 Sandrine Rider RN RN vc1 Jacob Haque RN jd3 Corrections: (The following items were deleted from the chart) 07/04 15:42 15:37 ED course: Dr Mejias consulted. Simón busch added, pt admitted for obs with kb nephrology. . kb 19:58 15:46 Telemetry/MedSurg (observation) kb vc1 19:58 15:46 kb vc1 19:58 19:58 vc1 vc1
[2021-07-04] MEDS ORDERED: INSULIN -REGULAR HUMAN 50 UNIT/0.5 ML ML ONE (15:49)
[2021-07-04] MEDS ORDERED: ALBUTEROL 2.5 MG/3 ML NEB SOL ONE (15:49)
[2021-07-04] MEDS ORDERED: CALCIUM GLUCONATE 1 GM IVPB 1 GM/50 ML BAG IV ONE (15:50)
[2021-07-04] MEDS ORDERED: SOD POLYSTYREN SUL 15 GM/60 ML UCUP ONE (15:50)
[2021-07-04] MEDS ORDERED: D10W 250 ML IV ONE (15:51)
[2021-07-04] MEDS: INSULIN -REGULAR HUMAN 50 UNIT/0.5 ML ML SQ SCH ×2 (16:30→21:00)
[2021-07-04] MEDS ORDERED: NA CHLORIDE 0.9% 1,000 ML ONE (16:37)
[2021-07-04] MEDS: HEPARIN 5000 UNIT/ML 1 ML VIAL SQ SCH (17:00)
[2021-07-04] MEDS ORDERED: SODIUM BICARB 325 MG TAB PO SCH (18:00)
[2021-07-04 20:18] LABS: Albumin 3.5 g/dL (3.4-5.0); Bilirubin Total 0.4 mg/dL (0.2-1.0); Potassium 4.8 mmol/L (3.5-5.1); Protein, Total 6.4 g/dL (6.4-8.2)
[2021-07-04 23:50] VITALS: BMI 23.6
[2021-07-05] MEDS ORDERED: HEPARIN 5000 UNIT/ML 1 ML VIAL ONE ×2 (00:20→08:03)
[2021-07-05] MEDS: HEPARIN 5000 UNIT/ML 1 ML VIAL SQ SCH ×2 (00:21→09:25)
[2021-07-05 03:34] LABS: Absolute Lymphocytes (CBC) 1.9 K/uL (0.7-4.9); Hematocrit 22.2 % (36.0-45.0); Lymphocytes % 29.1 % (15.3-44.8); MPV 8.9 fL (7.6-11.3); RBC Red Blood Cell Count 2.25 M/uL (3.86-4.86)
[2021-07-05] MEDS: INSULIN -REGULAR HUMAN 50 UNIT/0.5 ML ML SQ SCH (07:30)
[2021-07-05] MEDS ORDERED: HYDRALAZINE HCL 10 MG TABLET PO SCH (09:00)
[2021-07-05] MEDS ORDERED: allopurinoL 100 MG TAB PO SCH (09:00)
[2021-07-05] MEDS ORDERED: METOPROLOL TAR 50 MG TAB PO SCH (09:00)
[2021-07-05] MEDS ORDERED: VITAMIN D 1000 UNIT TAB PO SCH (09:00)
[2021-07-05] MEDS ORDERED: AMLODIPINE 10 MG TAB PO SCH (09:00)
[2021-07-05] MEDS ORDERED: ATORVASTATIN 20 MG TAB PO SCH (09:00)
[2021-07-05] MEDS ORDERED: FERROUS SULFATE 325 MG TAB PO SCH (09:00)
[2021-07-05] MEDS ORDERED: SODIUM BICARB 325 MG TAB PO SCH (09:00)
--- NOTE | 2021-07-05 09:17 | P.DS ---
Admission Date: 07/04/21 Discharge Date: 07/05/21 Disposition: ROUTINE DISCHARGE Discharge Condition: GOOD Reason for Admission: Elevated potassium, worsening kidney function. 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 She had done routine lab and she was found to have hyperkalemia potassium was 6.3 so she was asked to be evaluated in the emergency room for medical management. She reports no chest pain, dizzy spells, fever, chills, nausea, vomiting episode. She also did not report any worsening lower extremity swelling or shortness of breath. Hospital Course: She received medical management for hyperkalemia with insulin and glucose, calcium gluconate and albuterol inhalation therapy. Potassium improved to 4.8 from 6.3 on admission and she remained clinically stable. Home meds were continued while on admission. Today she looks much improved with increased feeling of wellness and slightly reduced creatinine from 4.4-3.8. She would follow-up with lower school music teacher within the coming weeks for routine care of her chronic kidney disease. She was advised to continue low potassium diet and patient education pamphlet was printed for her to review at home. Vital Signs/Physical Exam: Temp Pulse Resp BP Pulse Ox 98.1 F 71 12 133/60 96 07/05/21 04:00 07/05/21 04:00 07/05/21 04:00 07/05/21 04:00 07/05/21 04:00 Laboratory Data at Discharge: WBC 6.4 K/uL (4.3-10.9) 07/05/21 03:12 Hgb 7.4 g/dL (12.0-15.0) L 07/05/21 03:12 Hct 22.2 % (36.0-45.0) L 07/05/21 03:12 Plt Count 155 K/uL (152-406) 07/05/21 03:12 Sodium 139 mmol/L (136-145) 07/04/21 19:43 Potassium 4.8 mmol/L (3.5-5.1) 07/04/21 19:43 BUN 65 mg/dL (7-18) H 07/04/21 19:43 Creatinine 3.95 mg/dL (0.55-1.3) H 07/04/21 19:43 Glucose 82 mg/dL (74-106) 07/04/21 19:43 Total Bilirubin 0.4 mg/dL (0.2-1.0) 07/04/21 19:43 AST 19 U/L (15-37) 07/04/21 19:43 ALT 25 U/L (12-78) 07/04/21 19:43 Alkaline Phosphatase 103 U/L (45-117) 07/04/21 19:43 Home Medications: Cholecalciferol (Vitamin D3) [Vitamin D3] 2,000 unit PO DAILY 06/08/19 Ferrous Sulfate [Iron] 325 mg PO DAILY 06/08/19 Metoprolol Tartrate [Lopressor*] 50 mg PO DAILY 02/21/20 Hydralazine [Apresoline*] 10 mg PO BID 12/15/20 Amlodipine [Norvasc*] 10 mg PO DAILY 03/12/21 Atorvastatin Calcium [Lipitor*] 20 mg PO DAILY 03/12/21 allopurinoL [Zyloprim*] 100 mg PO TID 03/12/21 Sodium Bicarbonate 2 tab PO BID 06/18/21 Physician Discharge Instructions: patient to follow-up with nephrology within a week of hospital discharge Followup: Gilmar Haney MD [Primary Care Provider] -
[2021-07-05] MEDS ORDERED: HYDRALAZINE HCL 10 MG TABLET ONE (09:25)
[2021-07-05] MEDS ORDERED: AMLODIPINE 10 MG TAB ONE (09:25)
[2021-07-05] MEDS ORDERED: VITAMIN D 1000 UNIT TAB ONE (09:25)
[2021-07-05] MEDS ORDERED: ATORVASTATIN 20 MG TAB ONE (09:25)
[2021-07-05] MEDS ORDERED: METOPROLOL TAR 50 MG TAB ONE (09:25)
[2021-07-05 09:27] VITALS: BP 127/62
[2021-07-05 10:36] VITALS: TEMP 97.8; O2SAT 98
--- NOTE | 2021-07-09 11:28 | EKG ---
Test Date: 2021-07-04 Test Time: 15:10:11 Hand Bander: NGUYEN MEASUREMENT RESULTS: Intervals: Rate: 71 PA: 110 QRSD: 78 QT: 408 QTc: 443 [place]: P: 61 PA: 110 QRS: 70 T: 60 INTERPRETIVE STATEMENTS: Undetermined rhythm Nonspecific ST abnormality Abnormal ECG Compared to ECG 03/13/2021 14:38:40 ST (T wave) deviation now present Sinus rhythm no longer present Electronically Signed On 07-09-21 11:14:43 CDT by Mian Talbert
== END 2021-07-05 09:50 | disposition home or self-care (01) ==
LOC: ER 14:03 → ERHOLD 16:06
PROVIDERS: ADMIT Internal Medicine Nephrology; ATTEND Internal Medicine Nephrology
DX: E87.5 Hyperkalemia (principal); I12.0 Hypertensive chronic kidney disease with stage 5 chronic kidney disease or end stage renal disease; N18.5 Chronic kidney disease, stage 5; E78.5 Hyperlipidemia, unspecified; C95.90 Leukemia, unspecified not having achieved remission; K21.9 Gastro-esophageal reflux disease without esophagitis; Z79.899 Other long term (current) drug therapy; Z88.0 Allergy status to penicillin; Z88.5 Allergy status to narcotic agent; Z87.442 Personal history of urinary calculi; Z90.49 Acquired absence of other specified parts of digestive tract; Z20.822 Contact with and (suspected) exposure to COVID-19; Z83.3 Family history of diabetes mellitus; Z80.3 Family history of malignant neoplasm of breast; Z80.49 Family history of malignant neoplasm of other genital organs; Z80.0 Family history of malignant neoplasm of digestive organs; Z80.8 Family history of malignant neoplasm of other organs or systems
CPT/HCPCS: 93005; 85025 ×2; 80048; 36415; 82947 ×2; 80053; 96375; 96374; 99284; U0003; J1644 ×2; J0610; J7030; G0378 ×2

== ENCOUNTER 2021-07-05 14:01 | Inpatient (IN) | payer OTHER ==
--- OUTSIDE RECORDS SUMMARY | 2021-07-05 14:03 | XMS REPORT | Continuity of Care Document ---
:1955 Author Organization [facility] t Address [address] [place] [address] Care Team Providers Name Role Phone Isamar CAAL Attending Clinician Unavailable JUSTO MA Attending Clinician Unavailable Payers Payer Name Policy Type Policy Number Effective Date Expiration Date Sherman GONZALES [id number] 2020 00:00:00 Problems This patient has no known problems. Allergies, Adverse Reactions, Alerts Allergy Allergy Status Severity Reaction(s) Onset Inactive Treating Comm ents Source Name Type Date Date Clinician CODEINE DRUG Active Hives 2014-04 [facility] 1-30 ity of 00:00: [address] MORPHINE DRUG Active Hives 2014-04 [facility] 1-30 ity of 00:00: [address] PENICILL DRUG Active Hives 2014-04 [facility] IN INGREDI 1-30 ity of 00:00: [address] Medications This patient has no known medications. Procedures This patient has no known procedures. Encounters Start End Encounter Admission Attending Care Care Encounter Source Date/Time Date/Time Type Type Clinicians Facility Department ID 2020-12-16 2020-12-16 Outpatient Andre CAAL [facility] [id number] [facility] 11:00:00 11:00:00 ALISIA [facility] 2020-01-27 2020-01-27 Outpatient DANNY MA MED [id number] MHAVI 10:12:00 23:59:00 GUERLINE Results This patient has no known results.
[2021-07-05] MEDS ORDERED: SOD POLYSTYREN SUL 15 GM/60 ML UCUP PO ONE (17:00)
[2021-07-05] MEDS ORDERED: ALBUTEROL 2.5 MG/3 ML NEB SOL NEB ONE ×2 (17:00→18:00)
[2021-07-05] MEDS ORDERED: GLUCAGON 1 MG/VIAL IM PRN (17:00)
[2021-07-05] MEDS ORDERED: D10W 250 ML BAG IV PRN (17:15)
--- NOTE | 2021-07-05 17:20 | P.CNS ---
Date of Consult: 07/05/21 Reason for Consult: Hyperkalemia Requesting Physician: Sarbjit Healy Chief Complaint: Hyperkalemia History of Present Illness: 65F w/ PMHx of CKD4, baseline SCr 2.8-3.0 (equiv GFR 16-17 ml/min) as of 06/21/21, HTN, HLD, & anemia of chronic disease who was admitted for recurrent hyperkalemia. Serum K was 6.5 yesterday upon f/u w/ singe winder Dr. Mejias. She was admitted for hyperkalemia mngt. Allergies codeine Allergy (Verified 06/08/19 09:15) itching, crawling sensation morphine Allergy (Verified 06/08/19 09:15) itching, rash Penicillins Allergy (Verified 06/08/19 09:15) Anaphylaxis Home Medications: Cholecalciferol (Vitamin D3) [Vitamin D3] 2,000 unit PO DAILY 06/08/19 Ferrous Sulfate [Iron] 325 mg PO DAILY 06/08/19 Metoprolol Tartrate [Lopressor*] 50 mg PO DAILY 02/21/20 Hydralazine [Apresoline*] 10 mg PO BID 12/15/20 Amlodipine [Norvasc*] 10 mg PO DAILY 03/12/21 Atorvastatin Calcium [Lipitor*] 20 mg PO DAILY 03/12/21 allopurinoL [Zyloprim*] 100 mg PO TID 03/12/21 Sodium Bicarbonate 2 tab PO BID 06/18/21 - Past Medical/Surgical History Diabetic: No -: leukemia -: kidney stones -: hypertension -: gerd -: gall bladder removal -: partial hysterectomy - Family History Sister Medical History: Diabetes, Cancer Notes: breast cancer. thyroid Mother Medical History: Cancer Notes: uterine daughter Medical History: Cancer Notes: thyroid dad Medical History: Diabetes, Cancer Notes: colon - Social History Smoking Status: Unknown if ever smoked Alcohol use: Yes CD- Drugs: No Caffeine use: No Review of Systems General: Unremarkable Eyes: Unremarkable ENT: Unremarkable Respiratory: Unremarkable Cardiovascular: Unremarkable Gastrointestinal: Unremarkable Genitourinary: Unremarkable Integumentary: Unremarkable Neurological: Unremarkable Lymphatics: Unremarkable Physical Examination General: In no apparent distress HEENT: Atraumatic, Normocephalic Neck: Supple, JVD not distended Respiratory: Clear to auscultation bilaterally Cardiovascular: No rubs, No murmurs Gastrointestinal: Soft and benign, No rebound, No guarding Musculoskeletal: No clubbing, No swelling Integumentary: No warmth Neurological: Normal speech, Normal tone External genitalia: Deferred Rectal: Deferred Conclusions/Impression: # Hyperkalemia Check random urine K Received kayexalate, Ca, insulin + dextrose Give IV lasix Recheck serum K Resume Veltassa po after hosp dc # DARREN 2/2 prerenal state/ATN F/u random urine chem, upcr, CPK [place] po fluid intake # CKD4 Baseline SCr 2.8-3.0 (equiv GFR 16-17 ml/min) as of 06/21/21 Monitor renal panel # Htn BP at goal, not on BP meds, monitor # Acidosis Oral bicarb 1300 mg po bid
[2021-07-05] MEDS ORDERED: INSULIN -REGULAR HUMAN 50 UNIT/0.5 ML ML IV ONE (17:30)
[2021-07-05 17:45] VITALS: BMI 23.0
[2021-07-05] MEDS: CALCIUM GLUCONATE IV ONE ×2 (17:45→18:16)
[2021-07-05] MEDS: NA CHLORIDE 0.9% 1,000 ML IV SCH (17:59)
[2021-07-05] MEDS ORDERED: CALCIUM GLUC 10% INJ 4.65 MEQ in NA CHLORIDE 0.9% 100 ML IV ONE (18:00)
[2021-07-05] MEDS ORDERED: D10W 250 ML BAG IV ONE (18:00)
[2021-07-05] MEDS ORDERED: FUROSEMIDE 40 MG/4 ML VIAL IV ONE (18:00)
--- NOTE | 2021-07-05 18:43 | P.HP ---
Certification for Inpatient Patient admitted to: Inpatient With expected LOS: >2 Midnights Practitioner: I am a practitioner with admitting privileges, knowledge of patient current condition, hospital course, and medical plan of care. Services: Services provided to patient in accordance with Admission requirements found in Title 42 Section 412.3 of the Code of Federal Regulations Patient History Date of Service: 07/05/21 Reason for admission: Refractory hyperkalemia, CKD History of Present Illness: 65yo F, PMH: HTN, HLD, CKDIV, refractory hyperkalemia, anemia of chronic disease Admitted for refractory hyperkalemia. Patient was admitted yesterday and discharged today for hyperkalemia. She followed up with telecommunications linesworker and repeat BMP revealed potassium back up to 6.5. Her telecommunications linesworker requested direct admission, as patient may need to be initiated on dialysis. This is the third time she has been admitted for this similar issue in the last month. Patient denies any palpitations, no chest pain, no shortness of breath. Has been in her usual state of health. Denies any bleeding, no nausea vomiting, no diarrhea. Reports she continues to make a lot of urine. Allergies codeine Allergy (Verified 06/08/19 09:15) itching, crawling sensation morphine Allergy (Verified 06/08/19 09:15) itching, rash Penicillins Allergy (Verified 06/08/19 09:15) Anaphylaxis Home Medications: Cholecalciferol (Vitamin D3) [Vitamin D3] 2,000 unit PO DAILY 06/08/19 Ferrous Sulfate [Iron] 325 mg PO DAILY 06/08/19 Metoprolol Tartrate [Lopressor*] 50 mg PO DAILY 02/21/20 Hydralazine [Apresoline*] 10 mg PO BID 12/15/20 Amlodipine [Norvasc*] 10 mg PO DAILY 03/12/21 Atorvastatin Calcium [Lipitor*] 20 mg PO DAILY 03/12/21 allopurinoL [Zyloprim*] 100 mg PO TID 03/12/21 Sodium Bicarbonate 2 tab PO BID 06/18/21 - Past Medical/Surgical History Diabetic: No -: leukemia -: kidney stones -: hypertension -: gerd -: gall bladder removal -: partial hysterectomy - Family History Sister -: Diabetes, Cancer Notes: breast cancer. thyroid Mother -: Cancer Notes: uterine daughter -: Cancer Notes: thyroid dad -: Diabetes, Cancer Notes: colon - Social History Smoking Status: Current some day smoker Alcohol use: Yes CD- Drugs: No Caffeine use: No Place of Residence: Home Review of Systems 10-point ROS is otherwise unremarkable Physical Examination - Vital Signs Temperature: 97.0 F Blood Pressure: 141/65 Pulse: 66 Respirations: 16 Pulse Ox (%): 100 - Physical Exam General: Alert, In no apparent distress, Oriented x3 HEENT: Sclerae nonicteric Respiratory: Clear to auscultation bilaterally, Normal air movement Cardiovascular: No edema, Regular rate/rhythm, No murmurs Gastrointestinal: Soft and benign, Non-distended, No tenderness Musculoskeletal: No tenderness Integumentary: No rashes, No significant lesion Neurological: Normal speech, Normal strength at 5/5 x4 extr, Normal affect Assessment and Plan - Advance Directives Does patient have a Living Will: No Does patient have a Durable POA for Healthcare: No Physician Review Additional Text: Problem list Hyperkalemia CKD 4 Hypertension Hyperlipidemia Anemia of chronic disease h/o leukemia IV fluid -discussed with nephrology Albuterol nebulizer, D50/insulin, Kayexalate, calcium gluconate ordered Nephrology consulted N.p.o. after midnight in case she will need to be initiated on dialysis/needing dialysis catheter Confirm home medications, restart as appropriate VTE: Heparin prophylaxis Code: Full Dispo: Home, possibly needing initiation of dialysis Time Spent Managing Pts Care (In Minutes): 60
[2021-07-05] MEDS ORDERED: CALCIUM GLUCONATE 1 GM IVPB 1 GM/50 ML BAG IV ONE (19:00)
[2021-07-05 20:53] LABS: Potassium 4.1 mmol/L (3.5-5.1)
[2021-07-06] MEDS: HEPARIN 5000 UNIT/ML 1 ML VIAL SQ SCH ×3 (00:14→16:25)
[2021-07-06] MEDS: NA CHLORIDE 0.9% 1,000 ML IV SCH ×4 (00:15→22:23)
[2021-07-06 05:54] LABS: Hematocrit 25.9 % (36.0-45.0); MPV 9.2 fL (7.6-11.3); RBC Red Blood Cell Count 2.57 M/uL (3.86-4.86)
[2021-07-06 05:57] LABS: Magnesium 1.7 mg/dL (1.8-2.4); Potassium 5.3 mmol/L (3.5-5.1)
--- NOTE | 2021-07-06 06:51 | P.PN ---
Date of Service: 07/06/21 Subjective: no acute events overnight denies chest pain, no palpitations, no nausea/vomiting, no diarrhea ROS: 10 point ROS as noted above, otherwise negative Physical exam General: Alert, In no apparent distress, Oriented x3 HEENT: Sclerae nonicteric Respiratory: Clear to auscultation bilaterally, Normal air movement Cardiovascular: No edema, Regular rate/rhythm, No murmurs Gastrointestinal: Soft and benign, Non-distended, No tenderness Neurological: Normal speech, normal affect Problem list Hyperkalemia, refractory CKD 4-5 Hypertension Hyperlipidemia Anemia of chronic disease h/o leukemia s/p Albuterol nebulizer, D50/insulin, Kayexalate, calcium gluconate, lasix Nephrology consulted K improved, but increased again this morning Confirm home medications, restart as appropriate recheck K later today, tomorrow VTE: Heparin prophylaxis Code: Full Dispo: Home, in next 24 hrs vs needing initiation of dialysis Time Spent Managing Pts Care (In Minutes): 35
[2021-07-06] MEDS ORDERED: FUROSEMIDE 40 MG/4 ML VIAL IV STA (06:56)
--- NOTE | 2021-07-06 07:30 | P.PN ---
Subjective Date of Service: 07/06/21 Chief Complaint: Hyperkalemia Subjective: No new changes Physical Examination - Vital Signs Temperature: 97.1 F Blood Pressure: 119/49 Pulse: 67 Respirations: 18 Pulse Ox (%): 99 - Physical Exam General: In no apparent distress HEENT: Atraumatic, Normocephalic Neck: Supple, JVD not distended Respiratory: Clear to auscultation bilaterally Cardiovascular: No rubs, No murmurs Gastrointestinal: Soft and benign, No guarding Musculoskeletal: No clubbing Integumentary: No warmth Neurological: Normal speech, Normal tone Lymphatics: No axilla or inguinal lymphadenopathy Urinary: Other (No bladder distention) External genitalia: Deferred Rectal: Deferred Assessment And Plan - Plan # Hyperkalemia Resolved Random urine K low, indicates hyperK 2/2 renal dysfxn Received kayexalate, Ca, insulin + dextrose Received IV lasix 2nd dose today Renal diet Resume Veltassa at 8.4g po daily after hosp dc # DARREN 2/2 prerenal state/ATN Urine chem non-prerenal +Mild proteinuria [place] po fluid intake # CKD4 Baseline SCr 2.8-3.0 (equiv GFR 16-17 ml/min) as of 06/21/21 +Mild proteinuria 1.8g Monitor renal panel # Htn BP at goal, not on BP meds, monitor # Acidosis Oral bicarb 1300 mg po bid Give IV bicarb 500 cc x 1 # Anemia GAGAN 10T u SQ q 2wks F/u iron panel builder H/H # Dispo Anticipate dc tomorrow
[2021-07-06] MEDS: SODIUM BICARB 325 MG TAB PO SCH ×2 (07:37→21:31)
[2021-07-06] MEDS ORDERED: NA BICARB IV SCH ×2 (10:00)
[2021-07-06] MEDS ORDERED: WATER FOR INJ STERILE IV SCH ×2 (10:00)
[2021-07-06 10:12] LABS: UR PROTEIN 32.7 mg/dL (<11.9)
[2021-07-06 10:13] LABS: UR CREAT < 18.0 mg/dL (20-320)
[2021-07-06 20:59] VITALS: O2SAT 97
[2021-07-07] MEDS: HEPARIN 5000 UNIT/ML 1 ML VIAL SQ SCH ×2 (00:16→09:15)
[2021-07-07 05:52] LABS: Hematocrit 25.1 % (36.0-45.0)
[2021-07-07 06:54] LABS: Albumin 3.3 g/dL (3.4-5.0); Ferritin 193.4 ng/mL (8-388); Phosphorus 5.3 mg/dL (2.5-4.9); Potassium 4.7 mmol/L (3.5-5.1)
[2021-07-07] MEDS: SODIUM BICARB 325 MG TAB PO SCH (09:15)
--- NOTE | 2021-07-07 11:04 | P.DS ---
Admission Date: 07/05/21 Discharge Date: 07/07/21 Primary Care Provider: Dr. Haney Disposition: ROUTINE DISCHARGE Discharge Condition: GOOD Reason for Admission: Hyperkalemia Consultations: Nephrology - Dr. Goldstein Procedures: Problem list Hyperkalemia, refractory secondary to chronic kidney disease CKD 4-5 Hypertension Hyperlipidemia Anemia of chronic disease h/o leukemia Hypocalcemia Secondary hyperparathyroidism Brief History of Present Illness: 65yo F, PMH: HTN, HLD, CKDIV, refractory hyperkalemia, anemia of chronic disease Admitted for refractory hyperkalemia. Patient was admitted yesterday and discharged today for hyperkalemia. She followed up with bale stacker and repeat BMP revealed potassium back up to 6.5. Her bale stacker requested direct admission, as patient may need to be initiated on dialysis. This is the third time she has been admitted for this similar issue in the last month. Patient denies any palpitations, no chest pain, no shortness of breath. Has been in her usual state of health. Denies any bleeding, no nausea vomiting, no diarrhea. Reports she continues to make a lot of urine. Hospital Course: Patient was found to have hyperkalemia. Received treatment (IV fluids, kayexalate, albuterol, insulin, calcium replacement) with improvement, however, following day levels increased again. Nephrology was consulted, she was given lasix with improvement. Her potassium level on recheck remained <5. She was deemed stable for discharge home, to continue veltassa 8.4mg daily, which she has stopped taking regularly. blood pressure remained low-normal without her usual anti-hypertensive medications. On discharge, recommended not taking her blood pressure medications, check BP at home and record readings. Take readings when you follow up with Nephrology in 2 days (Friday). Vital Signs/Physical Exam: Temp Pulse Resp BP Pulse Ox 97.2 F 73 14 128/58 L 97 07/07/21 08:00 07/07/21 08:00 07/07/21 08:00 07/07/21 08:00 07/07/21 08:00 General: Alert, In no apparent distress, Oriented x3 HEENT: Mucous membr. moist/pink, Sclerae nonicteric Neck: Supple, No LAD Respiratory: Clear to auscultation bilaterally, Normal air movement Cardiovascular: No edema, Regular rate/rhythm Gastrointestinal: Soft and benign, Non-distended, No tenderness Musculoskeletal: No erythema, No tenderness Integumentary: No rashes, No significant lesion Laboratory Data at Discharge: WBC 5.3 K/uL (4.3-10.9) D 07/07/21 05:26 Hgb 8.3 g/dL (12.0-15.0) L 07/07/21 05:26 Hct 25.1 % (36.0-45.0) L 07/07/21 05:26 Plt Count 172 K/uL (152-406) 07/07/21 05:26 Sodium 140 mmol/L (136-145) 07/07/21 05:26 Potassium 4.7 mmol/L (3.5-5.1) 07/07/21 05:26 BUN 54 mg/dL (7-18) H 07/07/21 05:26 Creatinine 4.07 mg/dL (0.55-1.3) H 07/07/21 05:26 Glucose 86 mg/dL (74-106) 07/07/21 05:26 Phosphorus 5.3 mg/dL (2.5-4.9) H 07/07/21 05:26 Magnesium 1.7 mg/dL (1.8-2.4) L 07/06/21 05:21 Home Medications: Cholecalciferol (Vitamin D3) [Vitamin D3] 2,000 unit PO DAILY 06/08/19 Ferrous Sulfate [Iron] 325 mg PO DAILY 06/08/19 Metoprolol Tartrate [Lopressor*] 50 mg PO DAILY 02/21/20 Hydralazine [Apresoline*] 10 mg PO BID 12/15/20 Amlodipine [Norvasc*] 10 mg PO DAILY 03/12/21 Atorvastatin Calcium [Lipitor*] 20 mg PO DAILY 03/12/21 allopurinoL [Zyloprim*] 100 mg PO TID 03/12/21 Sodium Bicarbonate 2 tab PO BID 06/18/21 Cholecalciferol (Vitamin D3) [Vitamin D 1000 Iu Tab*] 2,000 unit PO DAILY 30 Days #60 tab 07/07/21 Patiromer Calcium Sorbitex [Veltassa] 8.4 gm PO DAILY 30 Days #30 powd.pack 07/07/21 New Medications: Patiromer Calcium Sorbitex [Veltassa] 8.4 gm PO DAILY 30 Days #30 powd.pack Cholecalciferol (Vitamin D3) [Vitamin D 1000 Iu Tab*] 2,000 unit PO DAILY 30 Days #60 tab Physician Discharge Instructions: Patient was found to have hyperkalemia. Received treatment (IV fluids, kayexalate, albuterol, insulin, calcium replacement) with improvement, however, following day levels increased again. Nephrology was consulted, she was given lasix with improvement. Her potassium level on recheck remained <5. She was deemed stable for discharge home, to continue veltassa 8.4mg daily. blood pressure remained low-normal without her usual anti-hypertensive medications. On discharge, recommended not taking her blood pressure medications, check BP at home and record readings. Take readings when you follow up with Nephrology in 2 days (Friday). Followup: Palak Enriquez MD [COURTESY - CAN ADMIT] - 07/09/21 (Call to schedule an appointment) Gilmar Haney MD [Primary Care Provider] - Time spent managing pt's care (in minutes): 45
[2021-07-07] MEDS ORDERED: EPOETIN ALFA-EPBX 10,000 UNIT/ML VIAL SQ STA (11:11)
[2021-07-07] MEDS ORDERED: CALCIUM GLUCONATE 1 GM IVPB 1 GM/50 ML BAG IV ONE (11:15)
[2021-07-07] MEDS ORDERED: FUROSEMIDE 40 MG/4 ML VIAL IV STA (11:16)
--- NOTE | 2021-07-07 11:42 | P.PN ---
Subjective Date of Service: 07/07/21 Chief Complaint: Hyperkalemia Subjective: Other (No urinary complaints) Physical Examination - Vital Signs Temperature: 97.2 F Blood Pressure: 128/58 Pulse: 73 Respirations: 14 Pulse Ox (%): 97 - Physical Exam General: Alert, In no apparent distress HEENT: Atraumatic, Normocephalic Neck: Supple, JVD not distended Respiratory: Clear to auscultation bilaterally Cardiovascular: No rubs, No murmurs Gastrointestinal: Soft and benign, Non-distended Musculoskeletal: No clubbing, No swelling Integumentary: No warmth Neurological: Normal speech, Normal tone Lymphatics: No axilla or inguinal lymphadenopathy Urinary: Other (No bladder distention) External genitalia: Deferred Rectal: Deferred Assessment And Plan - Plan # Hyperkalemia Serum K improved to 4.7 Random urine K low, indicates hyperK 2/2 renal dysfxn Received kayexalate, Ca, insulin + dextrose IV lasix 1 dose today Cont oral bicarb as below Renal diet Renal diet educ per dietitian Resume Veltassa at 8.4g po daily after hosp dc # DARREN 2/2 prerenal state/ATN Urine chem non-prerenal +Mild proteinuria [place] po fluid intake # CKD4-5 Baseline SCr 2.8-3.0 (equiv GFR 16-17 ml/min) as of 06/21/21 +Mild proteinuria 1.8g Monitor renal panel ESRD, renal replacement therapy discussion/preparation as outpt # Htn BP at goal, not on BP meds, monitor # Acidosis Resolved Received IV bicarb Cont oral bicarb 1300 mg po bid # Anemia GAGAN 10T u SQ q 2wks, dose today Iron panel showed adeq iron stores Monitor H/H # HypoCa Ca IV repletion today Start D3 suppl # Secondary hyperPTH Start D3 suppl # Dispo Dc today Renal panel, Mg, kidney clinic f/u w/ Dr. Mejias on Sunday 07/09
[2021-07-07] MEDS ORDERED: VITAMIN D 1000 UNIT TAB PO SCH (12:00)
[2021-07-07 12:02] VITALS: BP 150/60; TEMP 97.8
== END 2021-07-07 13:09 | disposition home or self-care (01) | DRG 640 ==
LOC: ER 14:01 → 2ND 14:54
PROVIDERS: ADMIT Hospitalist; ATTEND Hospitalist
DX: E87.5 Hyperkalemia (principal); N17.0 Acute kidney failure with tubular necrosis; N18.5 Chronic kidney disease, stage 5; C95.91 Leukemia, unspecified, in remission; N25.81 Secondary hyperparathyroidism of renal origin; I12.0 Hypertensive chronic kidney disease with stage 5 chronic kidney disease or end stage renal disease; D63.8 Anemia in other chronic diseases classified elsewhere; E78.5 Hyperlipidemia, unspecified; E83.51 Hypocalcemia; E87.2 Acidosis; K21.9 Gastro-esophageal reflux disease without esophagitis; F17.200 Nicotine dependence, unspecified, uncomplicated; Z79.899 Other long term (current) drug therapy; Z88.0 Allergy status to penicillin; Z88.5 Allergy status to narcotic agent; Z87.442 Personal history of urinary calculi; Z90.49 Acquired absence of other specified parts of digestive tract; Z83.3 Family history of diabetes mellitus; Z80.3 Family history of malignant neoplasm of breast; Z80.49 Family history of malignant neoplasm of other genital organs; Z80.0 Family history of malignant neoplasm of digestive organs; Z80.8 Family history of malignant neoplasm of other organs or systems
CPT/HCPCS: 36415; 80048; 80069; 82550; 82570; 82728; 83540; 83735; 83880; 83935; 84132; 84156; 84300; 84466; 85025; 85027; 93005; 94640; 94760; J0610; J1644; J1940; J7030; Q5106

== ENCOUNTER 2022-03-11 06:05 | Emergency (ER) | payer OTHER ==
--- OUTSIDE RECORDS SUMMARY | 2022-03-11 06:08 | XMS REPORT | Continuity of Care Document ---
:1955 Author Organization [facility] t Address [address] [place] [address] Care Team Providers Name Role Phone Erica Florence MD Attending Clinician ERICA FLORENCE Attending Clinician Unavailable Emmanuel Cormier MD Attending Clinician ALISIA CAAL Attending Clinician Unavailable GUERLINE MA Attending Clinician Unavailable ERICA FLORENCE Admitting Clinician Unavailable Payers Payer Name Policy Type Policy Number Effective Date Expiration Date Sherman GONZALES [id number] 2020 00:00:00 Problems This patient has no known problems. Allergies, Adverse Reactions, Alerts Allergy Allergy Status Severity Reaction(s) Onset Inactive Treating Comm ents Source Name Type Date Date Clinician CODEINE DRUG Active Hives 2014-04 [facility] of 00:00: [address] MORPHINE DRUG Active Hives 2014-04 [facility] 30 ity of 00:00: [address] PENICILL DRUG Active Hives 2014-04 [facility] IN INGREDI 05-06 ity of 00:00: [address] [place] CODEINE Allergy Active High Hives 2014-[address] [facility] 00 [place] MORPHINE Allergy Active High Hives 2014-[address] [facility] Medical 00 Center PENICILL Allergy Active High Hives 2014-[address] [facility] [address] [facility] 00:[facility]: Medical 00 [place] Morphine Drug Active Hives 2014-[address] [facility] [address] [facility] 00:[facility]: Medical 00 [place] Penicill Drug Active Hives 2014-[address] [facility] 00:[facility]: Medical 00 [place] Codeine Drug Active Hives 2014-[address] [facility] [facility] 00:[facility]: Medical 00 [place] NO KNOWN Allergy Active [facility] Social History Social Habit Start Date Stop Date Quantity Comments Source History SDOH [facility] Alcohol Std Drinks [facility]ica [facility] Center History SDOH [facility] Alcohol Binge Medical [facility] [facility] History SDOH [facility] Alcohol Comment Medical C enter Alcohol intake 2021-08-27 2021-08-[address] [facility] 00:00[facility]00 00[facility]00 [facility] Cigarettes smoked 2021-08-21 2021-08-[address] [facility] current (pack per 00:00:00 00:00:00 [facility] Center day) - Reported Tobacco use and 2021-08-21 2021-08-[address] [facility] exposure 00:00:00 00:00:00 [facility] Center History SDOH 2021-08-21 2021-08-[address] [facility] Alcohol Frequency 00:00:00 00:00:00 [facility] Sex Assigned At [address] 00:00:00 00:00:00 [facility] Smoking Status Start Date Stop Date Source Current every day smoker 2021-08-21 00:00:00 [facility] Medications Ordered Filled Start Stop Current Ordering Indication Dosage Frequency Signature Comments Components Source Medication Medication Date Date Medication? Clinician (SIG) Name Name hydrALAZINE Yes 10mg Q.5D Take [address] (APRESOLINE 5-20 by mouth 2 Dilma kes ) 10 MG 13:06: (two) Medical tablet 53 times Center daily. allopurinoL Yes 100mg Q.[id number] Take [address] (ZYLOPRIM) 5-20 [id number] mg by Dilma kes 100 MG 13:06: 3D mouth 3 Medical tablet 53 (three) Center times daily. sodium Yes 2{tbl} Q.82321459 Take [address] bicarbonate 5-20 [id number] tablets [facility] 650 MG 13:06: 3D mouth 3 Medical tablet 53 (three) Center times daily. ferrous Yes 325mg Take 325 [facility] sulfate 325 5-20 mg by [facility]ukes (65 FE) MG 13:06: mouth Medica l tablet 53 daily with Center breakfast. cholecalcif Yes Take by [facility] saurav, 5-20 mouth. [facility] vitamin D3, 13:06: Medica l 50 mcg 53 Center (2,000 unit) Cap amLODIPine Yes 10mg QD Take [address] (NORVASC) 5-20 by mouth Lukes 10 MG 13:06: daily. Medical tablet 53 Center atorvastati Yes 20mg QD Take [address] n (LIPITOR) 5-20 by mouth Luke s 20 MG 13:06: daily. Medical tablet 53 Center metoprolol Yes 50mg QD Take [address] succinate 5-20 by mouth Lukes (TOPROL-XL) 13:06: daily. Medi matthew 50 MG 24 hr 53 Center tablet patiromer Yes 16.8g QD Take 16.[address] calcium 5-20 g by mouth Lukes sorbitex 13:06: daily. Medical (Veltassa) 53 Center 16.8 gram PwPk Vital Signs Vital Name Observation Time Observation Value Comments Source WEIGHT 2021-08-21 10:16:00 58.06 kg HEIGHT 2021-08-21 10:16:00 160 cm WEIGHT 2021-08-21 10:16:00 58.06 kg HEIGHT 2021-08-21 10:16:00 160 cm WEIGHT 2021-08-21 10:16:00 58.06 kg HEIGHT 2021-08-21 10:16:00 160 cm Systolic blood 2021-08-24 11:30:00 108 mm[Hg] [facility] pressure Medical Center Diastolic blood 2021-08-24 11:30:00 51 mm[Hg] [facility] Heart rate 2021-08-24 11:30:00 61 /min [facility] Oxygen saturation in 2021-08-24 11:30:00 97 /min [facility] Arterial blood by Medical Ce nter Pulse oximetry Respiratory rate 2021-08-24 11:15:00 17 /min [facility] Body temperature 2021-08-24 11:09:00 36.61 Zayda [facility] Body height 2021-08-21 10:16:00 160 cm [facility] Body weight 2021-08-21 10:16:00 58.06 kg [facility] BMI 2021-08-21 10:16:00 22.67 kg/m2 [facility] Procedures Procedure Date / Time Performed [facility]forming [facility] 2021-08-24 11:14:00 Erica Florence [facility] CREATION, AV FISTULA 2021-08-24 09:50:00 Erica Florence [facility] ANESTHESIA PERIPHERAL 2021-08-24 08:32:56 Emmanuel Martinez [facility] ABORH, MANUAL 2021-08-24 07:32:00 Lizzeth Hagen [facility] POTASSIUM 2021-08-24 07:15:00 Emmanuel CormierAlber [facility] EKG-SCANNED 2021-08-24 00:00:00 Provider, Kristal [facility] XR CHEST 2 VIEWS 2021-08-21 10:49:00 Emmanuel CormierAlber [facility] ECG 12-LEAD 2021-08-21 10:09:27 Unknown, Hl7 Doctor [facility] CBC W/PLT COUNT & AUTO 2021-08-21 10:04:00 Erica Florence [facility] DIFFERENTIAL [facility] PT/APTT 2021-08-21 10:04:00 Erica Florence [facility] TYPE AND SCREEN, 2021-08-21 10:04:00 Erica Florence [facility] AUTOMATED [facility] CBC W/PLT COUNT & AUTO 2021-08-21 10:04:00 Erica Florence [facility] DIFFERENTIAL [facility] SARS-COV2/RT-PCR ([facility] & 2021-08-21 10:04:[address] [facility] BASIC METABOLIC PANEL 2021-08-21 10:04:00 Erica Florence [facility] Plan of Care Planned Activity Planned Date Details Comments Source Future Scheduled 2021-12-06 INFLUENZA VACCINE (#1) [facility] 00:00[facility]00 [code = INFLUENZA Medical Ce nter VACCINE (#1)] Future Scheduled 2021-04-[address] [facility] Test 00:00:00 (12+) [code = [facility] Center DEPRESSION SCREENING (12+)] Future Scheduled 2007-12-19 SHINGLES VACCINES ([address] [facility] Test 00:00:00 2) [code = SHINGLES [facility] VACCINES (1 of 2)] Future Scheduled 2002 Lipid panel (procedure) [facility] Test 00:00:00 [code = 63681580] Medical Ce nter Future Scheduled 1978 Screening for malignant [facility] Test 00:00:00 neoplasm of cervix Medical C enter (procedure) [code = 749021519] Future Scheduled 1976 DTAP/TDAP/TD VACCINES [facility] Test 00:00:00 (1 - Tdap) [code = Medical C enter DTAP/TDAP/TD VACCINES (1 - Tdap)] Future Scheduled 1975-12-19 HEPATITIS C SCREENING [facility] Test 00:00:00 [code = HEPATITIS C Medical Center SCREENING] Future Scheduled [address] [facility] Test 00:00:00 Counseling and Medical Cente r Screening (12+) [code = Tobacco Cessation Counseling and Screening (12+)] Future Scheduled 1963-12-[address] [facility] Test 00:00:00 0-64 YRS (1 - PCV) Medical C enter [code = PNEUMOCOCCAL VACCINE 0-64 YRS (1 - PCV)] Future Scheduled 1958-06-17 COVID-19 VACCINE (#1) [facility] Test 00:00:00 [code = COVID-[address] VACCINE (#1)] Future Scheduled 1957 Screening for malignant [facility] Test 00:00:00 neoplasm of breast Medical C enter (procedure) [code = 778417153] Future Scheduled 1957 CT Colonography (combo) [facility] Test 00:00:00 [code = CT Colonography [facility] (combo)] Future Scheduled 1957 Screening for malignant [facility] Test 00:00:00 neoplasm of colon Medical Ce nter (procedure) [code = 472084563] Future Scheduled 1957 Screening for malignant [facility] Test 00:00:00 neoplasm of colon Medical Ce nter (procedure) [code = 636704586] Future Scheduled 1957 Screening for malignant [facility] Test 00:00:00 neoplasm of colon Medical Ce nter (procedure) [code = 408316429] Future Scheduled 1957 Screening for malignant [facility] Test 00:00:00 neoplasm of colon Medical Ce nter (procedure) [code = 145285974] Future Scheduled 1955 Sigmoidoscopy [code = [facility] Test 00:00:00 Sigmoidoscopy] Medical [facility] Encounters Start End Encounter Admission Attending Care Care Encounter Source Date/Time Date/Time Type Type Clinicians Facility Department ID 2021-08-24 2021-08-24 Surgery Lois [facility] [id number] 10:20:00 12:20:00 [facility] 2021-08-24 [facility] [id number] 06:19:00 12:15:00 Encounter [facility] 2021-08-24 2021-08-24 Outpatient LOIS [facility] Surgery [id number] [facility] 06:19:00 12:15:00 [facility] 2021-08-24 2021-08-24 Anesthesia Emmanuel Cormier [facility] [id number] [facility] 09:50:00 11:07:00 Event [facility] 2021-08-24 2021-08-24 Travel [facility] [id number] [facility] 00[facility]00 00:00:00 [facility] 2021-08-21 2021-08-21 [facility] [id number] [facility] 10:03:34 23:59:00 2021-08-21 2021-08-21 [facility] [id number] 10:03:34 23:59:00 Encounter [facility] 2021-08-21 2021-08-21 Orders [facility] [id number] 00:00:00 00:00:00 Only [facility] 2021-08-21 2021-08-21 Travel [facility] [id number] [facility] 00:[facility]:00 00:00:00 [facility] 2020-12-16 2020-12-16 Outpatient Andre CAAL [facility] [id number] Univers 11:00:00 11:00:00 ALISIA ashford [facility] 2020-01-27 2020-01-27 Outpatient FRANCESCA [facility] 750 [id number] [facility] 10:12:00 23:59:00 GUERLINE Results Test Description Test Time Test Comments Results Result Comments Source POC-Glucose meter 2021-08-24 11:26:00 Test Item Value Reference Range Interpretation Comme nts POC-Glucose Meter (test code = 93 mg/dL 70-110 : TESTED AT [facility] [address]) [facility] [address]: Machine Tool Builder/Techni swathi ID = [id number] for Bibiana Maradiaga Lab Interpretation (test code = Normal 52005-6) [facility] [id number] 11:26:00 Test Item Value Reference Range Interpretation Comments POC-GLUCOSE METER 93 mg/dL 70-110 : TESTED A T [facility] [address] (BEAKER) (test code = [address] [facility], 1538) [facility] 2001 77 478: Machine Tool Builder/Techni swathi ID = [id number] for Bibiana Yan [id number] 07:33:20 Test Item Value Reference Range Interpretation Comments POTASSIUM (BEAKER) (test code = 3.5 meq/L 3.6-5.5 L 379) Machine Tool Builder ID - DSENSONOperator ID - DSENSONOperator ID - DSENSONOperator ID - DSENSONSARS-CoV2/RT-PCR (Asymptomatic ONLY)2021-08-21 14:15:11 Test Item Value Reference Interpretation Comments Range SARS-COV2/RT-PCR Negative Negative The SARS-Co V-2 (test code = target nucleic 03041-2) acids are not detected in thi s specimen. Negat joselyn results do not preclude SARS-C oV-2 infection and should not be u sed as the sole bas is for patient management decisions. Nega tive results must be combined with clinical observations, patient history , and epidemiolog ical information. A false negative result may occu r if a specimen is improperly collected, transported or handled. This S ARS CoV-2 test is a rapid, real-sergio e RT-PCR test intended for th e qualitative detection of nucleic acid fr om SARS-CoV-2 in a nasopharyngeal swab specimen collec meenakshi from individual s suspected of COVID-19 by the ir healthcare provider. ISAMAR (test code = This test has been ISAMAR) authorized by FDA under an EUA for use by authorized laboratories. This test is only authorized for the duration of the declaration that circumstances exist justifying the authorization of emergency use of in vitro diagnostic tests for detection and/or diagnosis of COVID-19 under Section 564(b)(1) of the Federal Food, Drug and Cosmetic Act, 21 U.S.C. 360bbb-3(b)(1), unless the authorization is terminated or revoked sooner. Fact Sheet for Healthcare Providers: https://www.Filmzu/Documents/Xp ert%20Xpress%20SAR S%20CoV-2/Fact%20S heets/302-3802%20S ARS-COV-2%20HEALTH CARE%20PROVIDERS%2 0FACT%20SHEET.pdf Fact Sheet for Healthcare Patients: https://www.Filmzu/Documents/Xp ert%20Xpress%20SAR S%20CoV-2/Fact%20S heets/302-3801%20S ARS-COV-2%20PATIEN T%20FACT%20SHEET.p df Lab Interpretation Normal (test code = 35190-9) [facility] & REF LABS)2021-08-21 14:15:11 Test Item Value Reference Range Interpretation Comments SARS-COV2/RT-PCR Negative Negative The SARS-Co V-2 target (test code = nucleic acids a re not 0184193) detected in thi s specimen. Negative result s do not preclude SARS-C oV-2 infection and s hould not be used as the gloria e basis for patient managem ent decisions. Nega tive results must be combine d with clinical observ ations, patient history , and epidemiological information. A false negativ e result may occur if a spec imen is improperly myke ected, transported or handled. This SARS CoV-2 test is a rapid, real-time RT-PC R test intended for th e qualitative detection of nu cleic acid from SARS-CoV-2 in a nasopharyngeal swab specimen collected from individuals suspected of CO VID-19 by their healthcar e provider. This test has been authorized by FDA under an EUA for use by authorized laboratories. This test is only authorized for the duration of the declaration that circumstances exist justifying the authorization of emergency use of in vitro diagnostic tests for detection and/or diagnosis of COVID-19 under Section 564(b)(1) of the Federal Food, Drug and Cosmetic Act, 21 U.S.C. 360bbb-3(b)(1), unless the authorization is terminated or revoked sooner. Fact Sheet for Healthcare Providers: https://www.VHSquared m/Documents/Xpert%20Xpress%20SARS%20CoV-2/Fact%20Sheets/3023802%40OIEP-OGK-0%20 HEALTHCARE%20PROVIDERS%20FACT%20SHEET.pdf Fact Sheet for Healthcare Patients: https://www.Ariisto/Documents/Xpert%20Xp ress%20SARS%20CoV-2/Fact%20Sheets/3023801%94UFDN-ZFG-8%20PATIENT%20FACT%20SHEET .pdfBADEACONESS HEALTH SYSTEM METABOLIC [id number] 11:08:40 Test Item Value Reference Range Interpretation Comments SODIUM (BEAKER) (test 140 meq/L 135-148 code = 381) POTASSIUM (BEAKER) 3.4 meq/L 3.6-5.5 L (test code = 379) CHLORIDE (BEAKER) 110 meq/L 98-106 H (test code = 382) CO2 (BEAKER) (test 16 meq/L 20-29 L code = 355) BLOOD UREA NITROGEN 71 mg/dL 10-26 H (BEAKER) (test code = 354) CREATININE (BEAKER) 4.67 mg/dL 0.50-1.20 H (test code = 358) GLUCOSE RANDOM 107 mg/dL 70-110 (BEAKER) (test code = 652) CALCIUM (BEAKER) 9.0 mg/dL 8.5-10.5 (test code = 697) EGFR (BEAKER) (test INSUFFIC IENT CLINICAL code = 1092) DATA TO CALCULA TE ESTIMATED GFR. Machine Tool Builder ID - DSENSONOperator ID - DSENSONOperator ID - DSENSONOperator ID - DSENSONOperator ID - DSENSONOperator ID - DSENSONOperator ID - DSENSONOperator ID - DSENSONOperator ID - DSENSONOperator ID - DSENSONOperator ID - DSENSONOperator ID - DSENSONOperator ID - DSENSONRAD, CHEST, 2 [id number] 10:58:00Reason for exam:->preopShould this be performed at the bedside?->NoRONALD RE[facility]AN [facility]FFNEY : 1955 Sex: FFINAL REPORT History provided: Preoperative assessment CHEST PA AND LATERAL: Normal cardiomediastinal silhouette. Lungs are fully expanded and clear. CONCLUSION: Normal two-view chest examination. Signed: Micah Castaneda MDReport Verified Date/Time: 08/21/2021 10:58:02 Reading Location: [facility] Radiology Reading Room [id number] 10:50:31 Test Item Value Reference Range Interpretation Comments PROTIME (BEAKER) (test 10.7 seconds 9.3-12.0 Final Information code = 759) (Auto Output) INR (BEAKER) (test 0.97 See_Comment Final Inf ormation code = 370) (Auto Output) [Automated mess age] The system [employer] generated this result transmit meenakshi reference range : <=5.90. The reference range was not used to interpret this result as normal/abnormal . PARTIAL THROMBOPLASTIN 29.9 seconds 23.0-35.0 Final Information TIME (BEAKER) (test (Auto Ou tput) code = 760) RECOMMENDED COUMADIN/WARFARIN INR THERAPY RANGESSTANDARD DOSE: 2.0 - 3.0 Includes: PROPHYLAXIS for venous thrombosis, systemic embolization; TREATMENT for venous thrombosis and/or pulmonary embolus.HIGH RISK: Target INR is 2.5-3.5 for patients with mechanical heart valves.CBC W/PLT COUNT & AUTO [id number] 10:37:08 Test Item Value Reference Range Interpretation Comments WHITE BLOOD CELL COUNT (BEAKER) 10.0 K/ L 4.0-10.0 (test code = 775) RED BLOOD CELL COUNT (BEAKER) 3.32 M/ L 4.00-5.00 L (test code = 761) HEMOGLOBIN (BEAKER) (test code = 11.1 GM/DL 12.0-15.5 L 410) HEMATOCRIT (BEAKER) (test code = 32.3 % 36.0-46.0 L 411) MEAN CORPUSCULAR VOLUME (BEAKER) 97.3 fL 82.0-99.0 (test code = 753) MEAN CORPUSCULAR HEMOGLOBIN 33.4 pg 27.0-33.0 H (BEAKER) (test code = 751) MEAN CORPUSCULAR HEMOGLOBIN CONC 34.4 GM/DL 32.0-36.0 (BEAKER) (test code = 752) RED CELL DISTRIBUTION WIDTH 14.3 % 12.0-15.0 (BEAKER) (test code = 412) PLATELET COUNT (BEAKER) (test 177 K/CU MM 150-430 code = 756) MEAN PLATELET VOLUME (BEAKER) 11.6 fL 6.0-11.5 H (test code = 754) NUCLEATED RED BLOOD CELLS 0 /100 WBC 0-0 (BEAKER) (test code = 413) NEUTROPHILS RELATIVE PERCENT 63 % (BEAKER) (test code = 429) LYMPHOCYTES RELATIVE PERCENT 22 % (BEAKER) (test code = 430) MONOCYTES RELATIVE PERCENT 5 % (BEAKER) (test code = 431) EOSINOPHILS RELATIVE PERCENT 8 % (BEAKER) (test code = 432) BASOPHILS RELATIVE PERCENT 1 % (BEAKER) (test code = 437) NEUTROPHILS ABSOLUTE COUNT 6.26 K/ L 1.80-8.00 (BEAKER) (test code = 670) LYMPHOCYTES ABSOLUTE COUNT 2.20 K/ L 1.48-4.50 (BEAKER) (test code = 414) MONOCYTES ABSOLUTE COUNT (BEAKER) 0.52 K/ L 0.00-1.30 (test code = 415) EOSINOPHILS ABSOLUTE COUNT 0.83 K/ L 0.00-0.50 H (BEAKER) (test code = 416) BASOPHILS ABSOLUTE COUNT (BEAKER) 0.09 K/ L 0.00-0.20 (test code = 417) IMMATURE GRANULOCYTES-RELATIVE 1 % 0-0 H PERCENT (BEAKER) (test code = 2801)
[2022-03-11] MEDS ORDERED: ONDANSETRON 4 MG/2 ML VIAL ONE ×2 (06:39→07:28)
--- NOTE | 2022-03-11 07:17 | RAD REPORT ---
EXAM DESCRIPTION: CT - Stone Protocol - 03/11/2022 7:04 am CLINICAL HISTORY: flank pain COMPARISON: Stone Protocol dated 03/12/2021; Stone Protocol dated 02/21/2020 TECHNIQUE: Axial 3 mm thick images were obtained without oral or IV contrast. The [id number] span s the entirety of the system including uppermost abdomen and lung bases. All CT scans are performed using dose optimization technique as appropriate and may include automated exposure control or mA/KV adjustment according to patient size. FINDINGS: No hydronephrosis is present and no obstructing ureteral calculi. No nonobstructing calcul i seen. No suspicious renal masses. Isodense masses and pyelonephritis are not excluded on a stone pr otocol CT scan. No significant adrenal finding. No urinary bladder suspicious finding. No uterine or ovarian abnormality suspected. Ovarian assessment is limited due to atrophy changes and abutting non- opacified isodense bowel loops. Imaged portions of the liver, spleen and pancreas show no suspicious findings on non-contrast imaging . A cyst along the posteromedial right lobe capsule is 4.7 cm in size. This has increased slightly ov er serial imaging but continues to show benign characteristics. Gallbladder is absent. No abnormal bi liary tree dilatation. Gastric lumen is decompressed which accentuates wall thickness. This limits CT sensitivity. No gross evidence for a gastric abnormality. There is no adjacent stranding or edema. Small bowel loops are no rmal in diameter with no acute findings seen. Terminal ileum is unremarkable. No appendicitis finding s. Moderately large stool volume is present filling but not dilating the colon. Garcia of the cecum are p rominent. This is probably artifact of peristalsis and variably dense bowel content rather than mass. No gross evidence for mass or colitis. If not recently performed, colonoscopy could be performed if the patient remains symptomatic. No hernia, mass or bulky lymphadenopathy noted. No free air, free fluid or inflammatory stranding. No significant bony abnormality. IMPRESSION: Noncontrast CT abdomen and pelvis exam shows no acute or emergent finding. Additional findings are detailed in the body of the report. Isodense renal masses and pyelonephritis are not excluded on stone protocol technique.
[2022-03-11 07:32] LABS: Absolute Lymphocytes (CBC) 2.2 K/uL (0.7-4.9); Hematocrit 34.2 % (36.0-45.0); Lymphocytes % 19.3 % (15.3-44.8); MCV 101.1 fL (80-100); MPV 8.9 fL (7.6-11.3); RBC Red Blood Cell Count 3.39 M/uL (3.86-4.86)
[2022-03-11] MEDS ORDERED: FENTANYL CITR 100 MCG/2 ML ONE (07:40)
[2022-03-11 07:46] LABS: Urine Blood Trace-intact (Negative); Urine Glucose Negative (Negative); Urine Protein 2+ (Negative); Urine Specific Gravity 1.015 (1.005-1.030)
[2022-03-11 07:53] LABS: Urine Bacteria <20 /HPF (<20); Urine RBC <5 /HPF (None Seen)
[2022-03-11 07:55] LABS: Albumin 3.8 g/dL (3.4-5.0); Bilirubin Total 0.4 mg/dL (0.2-1.0); Potassium 4.8 mmol/L (3.5-5.1); Protein, Total 7.2 g/dL (6.4-8.2)
--- NOTE | 2022-03-11 08:45 | ER ---
Nurse's Notes [facility] Name: Dawn Rolle Age: 66 yrs Sex: Female : 1955 Arrival Date: 03/11/2022 Time: 06:12 Bed 5 Private MD: Diagnosis: Right flank pain Presentation: 03/11 06:24 Chief complaint: Patient states: she has been having right sided back pain for a couple bb of days the pain radiates to her abdomen and is sharp and intermittent denies dysuria. Coronavirus screen: At this time, the client does not indicate any symptoms associated with coronavirus-19. Ebola Screen: No symptoms or risks identified at this time. Initial Sepsis Screen: Does the patient meet any 2 criteria? No. Patient's initial sepsis screen is negative. Does the patient have a suspected source of infection? No. Patient's initial sepsis screen is negative. Risk Assessment: Do you want to hurt yourself or someone else? Patient reports no desire to harm self or others. Onset of symptoms was March 09, 2022. 06:24 Method Of Arrival: Ambulatory bb 06:24 Acuity: MECCA 3 bb 06:29 Note pt states she was sent here from dialysis this morning. bb Historical: - Allergies: 06:27 Codeine; bb 06:27 Morphine; bb 06:27 PENICILLINS; bb - Home Meds: 06:27 Allopurinol Oral [Active]; atorvastatin Oral [Active]; Hydralazine Oral [Active]; bb Metoprolol Tartrate Oral [Active]; amlodipine oral [Active]; Vitamin D3 Oral [Active]; sevelamer HCl oral [Active]; Veltassa oral [Active]; - PMHx: 06:27 Hypertension; kidney disease; Kidney stones; Leukemia; ESRD; bb - PSHx: 06:27 Cholecystectomy; fistula left upper arm; bb - Immunization history:: pt has had several Covid vaccines one from J[employer]T[facility]. - Social history:: Smoking status: Patient reports the use of cigarette tobacco products. - Family history:: not pertinent. Screenin:54 Abuse screen: Denies threats or abuse. Denies injuries from another. Nutritional ha1 screening: No deficits noted. Tuberculosis screening: No symptoms or risk factors identified. Fall Risk IV access (20 points). Total Forte Fall Scale indicates No Risk (0-24 pts). Assessment: 06:51 General: Appears comfortable, Behavior is calm, cooperative. Pain: Complains of pain in ha1 right low back Pain does not radiate. Pain currently is 10 out of 10 on a pain scale. Neuro: Level of Consciousness is awake, alert, obeys commands. Cardiovascular: Capillary refill < 3 seconds Patient's skin is warm and dry. Respiratory: Airway is patent Trachea midline Respiratory effort is even, unlabored, Respiratory pattern is regular, symmetrical, Breath sounds are clear bilaterally. GI: Abdomen is flat, non-distended, Bowel sounds present X 4 quads. : No signs and/or symptoms were reported regarding the genitourinary system. EENT: No signs and/or symptoms were reported regarding the EENT system. Derm: Skin is normal. Musculoskeletal: Capillary refill < 3 seconds, Range of motion: intact in all extremities. 07:00 Reassessment: Received report from Sirisha. mb9 07:25 Reassessment: Patient is alert, oriented x 3, equal unlabored respirations, skin aa5 warm/dry/pink. 07:25 Pain: Complains of pain in right low back Pain currently is 8 out of 10 on a pain scale.aa5 07:34 Reassessment: Awaiting Fentanyl from pharmacy. Pt ambulatory to restroom with steady aa5 gait to provide urine specimen. . 07:48 Reassessment: Patient is alert, oriented x 3, equal unlabored respirations, skin aa5 warm/dry/pink. 07:54 General: Appears comfortable, Behavior is calm, cooperative, appropriate for age. Pain: mb9 Complains of pain in right low back Pain does not radiate. Pain currently is 6 out of 10 on a pain scale. Aggravated by increased activity, repositioning. Neuro: Whitney Agitation-Sedation Scale (RASS): 0 - Alert and Calm Level of Consciousness is awake, alert, obeys commands, Oriented to person, place, time, situation, Appropriate for age. Cardiovascular: Heart tones S1 S2 present Rhythm is regular. Respiratory: Airway is patent Respiratory effort is even, unlabored, Respiratory pattern is regular, symmetrical, Breath sounds are clear bilaterally. GI: Abdomen is flat, non-distended, Bowel sounds present X 4 quads. Abd is soft and non tender X 4 quads. : No signs and/or symptoms were reported regarding the genitourinary system. EENT: No signs and/or symptoms were reported regarding the EENT system. Derm: Skin is pink, warm \T\ dry. Musculoskeletal: Range of motion: intact in all extremities. 08:42 Reassessment: Patient states feeling better. Patient states symptoms have improved. mb9 Pain:. Neuro: Level of Consciousness is awake, alert, obeys commands, Oriented to person, place, time, situation, Appropriate for age. Respiratory: Airway is patent Respiratory effort is even, unlabored, Respiratory pattern is regular, symmetrical. Derm: Skin is pink, warm \T\ dry. 08:55 Reassessment: Patient is alert, oriented x 3, equal unlabored respirations, skin aa5 warm/dry/pink. Patient states feeling better. Vital Signs: 06:24 BP 144 / 66; Pulse 59; Resp 16 S; Temp 98; Pulse Ox 100% on R/A; Weight 58.97 kg (R); bb Height 5 ft. 2 in. (157.48 cm) (R); Pain 7/10; 06:32 BP 144 / 66; Pulse 59; Resp 16 S; Pulse Ox 98% on R/A; ha1 07:55 BP 122 / 51; Pulse 64; Resp 18; Pulse Ox 98% ; mb9 08:42 BP 113 / 51; Pulse 60; Resp 16; Pulse Ox 100% ; mb9 06:24 Body Mass Index 23.78 (58.97 kg, 157.48 cm) bb ED Course: 06:12 Patient arrived in ED. ja2 06:21 Fahad Mcgregor MD is Attending Physician. rt 06:27 Triage completed. bb 06:29 Arm band placed on Patient placed in an exam room, on a stretcher, on pulse oximetry. bb 06:33 Sirisha Quezada, RN is Primary Nurse. ha1 06:55 Patient has correct armband on for positive identification. Placed in gown. Bed in low ha1 position. Call light in reach. Side rails up X 1. 06:58 Missed attempt(s): 20 gauge in right antecubital area. ha1 07:[address] In Process Unspecified. EDMS 07:19 Primary Nurse role handed off by Sirisha Quezada, ROBERTO mb9 07:19 Breneman, Kalyn, RN is Primary Nurse. mb9 07:22 Attending Physician role handed off by Fahad Mcgregor MD kdr 07:22 Fritz Hanley MD is Attending Physician. kdr 07:25 Initial lab(s) drawn, by me, sent to lab. Inserted saline lock: 22 gauge in right aa5 wrist, using aseptic technique. Blood collected. 08:43 No provider procedures requiring assistance completed. mb9 08:55 IV discontinued, intact, bleeding controlled, No redness/swelling at site. Pressure aa5 dressing applied. Administered Medications: 07:34 Not Given (Physician Discretion): fentaNYL (PF) 100 mcg IVP once aa5 07:34 Drug: Zofran (Ondansetron) 4 mg Route: IVP; Site: right wrist; aa5 07:48 Follow up: Response: No adverse reaction aa5 07:48 Drug: fentaNYL (PF) 50 mcg Route: IVP; Site: right wrist; aa5 07:55 Follow up: Response: No adverse reaction aa5 Medication: 07:56 VIS not applicable for this client. mb9 Outcome: 08:45 Discharge ordered by . kdr 08:55 Discharged to home ambulatory. aa5 08:55 Condition: stable 08:55 Discharge instructions given to patient, Instructed on discharge instructions, follow up and referral plans. medication usage, Demonstrated understanding of instructions, follow-up care, medications, Prescriptions given X 1. 08:58 Patient left the ED. Signatures: Dispatcher [employer] EDMS Fritz Hanley MD MD kdr Britni Simms RN RN Argentina Schwartz RN RN aa5 Carmen Aguirre RN RN Maame Ellsworth Heidy, RN RN ha1 Sallie De Los Santos, RN RN mb9 Fahad Mcgregor MD MD rt
--- NOTE | 2022-03-11 08:45 | EDPHYS ---
Physician Documentation [facility] Name: Dawn Rolle Age: 66 yrs Sex: Female : 1955 Arrival Date: 03/11/2022 Time: 06:12 Bed 5 Private MD: ED Physician Fritz Hanley HPI: 03/11 06:47 This 66 yrs old Female presents to ER via Ambulatory with complaints of Back rt Pain. 06:47 The patient presents with pain that is acute, with no known mechanism of injury. The rt symptoms are located in the right low back. Onset: The symptoms/episode began/occurred 2 day(s) ago. The pain does not radiate. Associated signs and symptoms: The patient has no apparent associated signs or symptoms. Modifying factors: The patient symptoms are alleviated by nothing. Patient presents to the ED with a right mid back pain starting about 2 days ago, is been intermittent, moderate in severity, aching in nature. She denies any injury. The patient has had a history of kidney stones previously. Patient went to dialysis today, stating that they would not dialyze her due to the pain. Denies nausea, vomiting, other acute complaints. Symptoms are moderate severity, no other aggravating or alleviating factors.. Historical: - Allergies: 06:27 Codeine; bb 06:27 Morphine; bb 06:27 PENICILLINS; bb - Home Meds: 06:27 Allopurinol Oral [Active]; atorvastatin Oral [Active]; Hydralazine Oral [Active]; bb Metoprolol Tartrate Oral [Active]; amlodipine oral [Active]; Vitamin D3 Oral [Active]; sevelamer HCl oral [Active]; Veltassa oral [Active]; - PMHx: 06:27 Hypertension; kidney disease; Kidney stones; Leukemia; ESRD; bb - PSHx: 06:27 Cholecystectomy; fistula left upper arm; bb - Immunization history:: pt has had several Covid vaccines one from J\T\J. - Social history:: Smoking status: Patient reports the use of cigarette tobacco products. - Family history:: not pertinent. ROS: 06:47 Constitutional: Negative for fever, chills, and weight loss, Eyes: Negative for injury, rt pain, redness, and discharge, ENT: Negative for injury, pain, and discharge, Neck: Negative for injury, pain, and swelling, Cardiovascular: Negative for chest pain, palpitations, and edema, Respiratory: Negative for shortness of breath, cough, wheezing, and pleuritic chest pain, Abdomen/GI: Negative for abdominal pain, nausea, vomiting, diarrhea, and constipation, MS/Extremity: Negative for injury and deformity, Skin: Negative for injury, rash, and discoloration, Neuro: Negative for headache, weakness, numbness, tingling, and seizure, Psych: Negative for depression, anxiety, suicide ideation, homicidal ideation, and hallucinations. 06:47 Back: Positive for pain at rest, Negative for injury or acute deformity. 06:47 : Positive for flank pain, Negative for burning with urination. Exam: 06:47 Constitutional: This is a well developed, well nourished patient who is awake, alert, rt and in no acute distress. Head/Face: Normocephalic, atraumatic. Eyes: Pupils equal round and reactive to light, extra-ocular motions intact. Lids and lashes normal. Conjunctiva and sclera are non-icteric and not injected. Cornea within normal limits. Periorbital areas with no swelling, redness, or edema. ENT: Nares patent. No nasal discharge, no septal abnormalities noted. Tympanic membranes are normal and external auditory canals are clear. Oropharynx with no redness, swelling, or masses, exudates, or evidence of obstruction, uvula midline. Mucous membranes moist. Chest/axilla: Normal chest wall appearance and motion. Nontender with no deformity. No lesions are appreciated. Cardiovascular: Regular rate and rhythm with a normal S1 and S2. No gallops, murmurs, or rubs. Normal PMI, no JVD. No pulse deficits. Respiratory: Lungs have equal breath sounds bilaterally, clear to auscultation and percussion. No rales, rhonchi or wheezes noted. No increased work of breathing, no retractions or nasal flaring. Abdomen/GI: Soft, non-tender, with normal bowel sounds. No distension or tympany. No guarding or rebound. No evidence of tenderness throughout. Skin: Warm, dry with normal turgor. Normal color with no rashes, no lesions, and no evidence of cellulitis. MS/ Extremity: Pulses equal, no cyanosis. Neurovascular intact. Full, normal range of motion. Neuro: Awake and alert, GCS 15, oriented to person, place, time, and situation. Cranial nerves II-XII grossly intact. Motor strength 5/5 in all extremities. Sensory grossly intact. Cerebellar exam normal. Normal gait. Psych: Awake, alert, with orientation to person, place and time. Behavior, mood, and affect are within normal limits. 06:47 Back: Tenderness to the right mid back, flank, no midline tenderness. Vital Signs: 06:24 BP 144 / 66; Pulse 59; Resp 16 S; Temp 98; Pulse Ox 100% on R/A; Weight 58.97 kg (R); bb Height 5 ft. 2 in. (157.48 cm) (R); Pain 7/10; 06:32 BP 144 / 66; Pulse 59; Resp 16 S; Pulse Ox 98% on R/A; ha1 07:55 BP 122 / 51; Pulse 64; Resp 18; Pulse Ox 98% ; mb9 08:42 BP 113 / 51; Pulse 60; Resp 16; Pulse Ox 100% ; mb9 06:24 Body Mass Index 23.78 (58.97 kg, 157.48 cm) bb MDM: 06:31 Patient medically screened. rt 08:43 Data reviewed: vital signs, nurses notes, lab test result(s), radiologic studies. kdr Counseling: I had a detailed discussion with the patient and/or guardian regarding: the historical points, exam findings, and any diagnostic results supporting the discharge/admit diagnosis, lab results, radiology results, the need for outpatient follow up. ED course: Patient states that she was feeling much better. Pain has essentially resolved. She has no other concerns at this time. She felt well enough to be discharged. She had no other concerns. She was happy with the care provided and the plan for discharge. 03/11 06:33 Order name: CBC with Diff; Complete Time: 08:01 rt 03/11 06:33 Order name: CMP; Complete Time: 08:31 rt 03/11 06:33 Order name: UA MICROSCOPIC; Complete Time: 08:01 rt 12 06:33 Order name: Stone Protocol CT; Complete Time: 07:23 rt 03/11 07:46 Order name: Urine Dipstick-Ancillary; Complete Time: 08:01 EDMS 03/11 06:33 Order name: Urine Dipstick-Ancillary (obtain specimen); Complete Time: 07:51 rt Administered Medications: 07:34 Not Given (Physician Discretion): fentaNYL (PF) 100 mcg IVP once aa5 07:34 Drug: Zofran (Ondansetron) 4 mg Route: IVP; Site: right wrist; aa5 07:48 Follow up: Response: No adverse reaction aa5 07:48 Drug: fentaNYL (PF) 50 mcg Route: IVP; Site: right wrist; aa5 07:55 Follow up: Response: No adverse reaction aa5 Disposition Summary: 03/11/22 08:45 Discharge Ordered Location: Home kdr Problem: new kdr Symptoms: are resolved kdr Condition: Stable kdr Diagnosis - Right flank pain kdr Followup: kdr - With: Private Physician - When: 2 - 3 days - Reason: If symptoms return, Further diagnostic work-up, Recheck today's complaints, Continuance of care, Re-evaluation by your physician Discharge Instructions: - Discharge Summary Sheet kdr - Chronic Kidney Disease, Adult, [id number] kdr - Flank Pain, Adult, [id number] kdr Forms: - Medication Reconciliation Form kdr - Thank You Letter kdr - Prescription Opioid Use kdr Prescriptions: - Tramadol 50 mg Oral Tablet - take 1 tablet by ORAL route every 8 hours As needed as needed; 12 tablet; kdr Refills: 0, Product Selection Permitted Signatures: Dispatcher [employer] Fritz Dong MD MD kdr Britni Simms RN RN bb Argentina Schwartz RN RN aa5 Fahad Mcgregor MD MD rt
[2022-03-11 09:18] VITALS: TEMP 98
[2022-03-11 09:34] VITALS: BP 113/51; O2SAT 100
== END 2022-03-11 08:58 | disposition home or self-care (01) ==
LOC: ER 06:05
DX: R10.9 Unspecified abdominal pain (principal); I12.0 Hypertensive chronic kidney disease with stage 5 chronic kidney disease or end stage renal disease; N18.6 End stage renal disease; Z99.2 Dependence on renal dialysis; Z72.0 Tobacco use
CPT/HCPCS: 85025; 36415; 80053; 76377; 74176; 96375; 96374; 99284; J3010; J2405; 81003; 81015

== ENCOUNTER 2022-03-26 16:58 | Emergency (ER) | payer OTHER ==
--- OUTSIDE RECORDS SUMMARY | 2022-03-26 17:01 | XMS REPORT | Continuity of Care Document ---
:1955 Author Organization [facility] t Address [address] [place] [address] Care Team Providers Name Role Phone Erica Florence MD Attending Clinician ERICA FLORENCE Attending Clinician Unavailable Emmanuel Cormier MD Attending Clinician ALISIA CAAL Attending Clinician Unavailable GUERLINE MA Attending Clinician Unavailable ERICA FLORENCE Admitting Clinician Unavailable Payers Payer Name Policy Type Policy Number Effective Date Expiration Date Sherman GONZALES [id number] 2020 00:00:00 Problems This patient has no known problems. Allergies, Adverse Reactions, Alerts Allergy Allergy Status Severity Reaction(s) Onset Inactive Treating Comm ents Source Name Type Date Date Clinician Morphine Drug Active Hives 2014-[address] [facility] Penicill Drug Active Hives 2014-[address] [facility] [address] [facility] Codeine Drug Active Hives 2014-[address] [facility] [address] [facility] CODEINE DRUG Active Hives 2014-04 [facility]: [place] 00 [facility] MORPHINE DRUG Active Hives 2014-04 [facility] INGREDI -30 ity of 00:00: [address] Branch PENICILL DRUG Active Hives 2014-04 Univers IN INGREDI -30 ity of 00:00: [place] [address] [facility] Branch CODEINE Allergy Active High Hives 2014-[address] [facility] [facility] 00:[facility]: Medical 00 [place] MORPHINE Allergy Active High Hives 2014-[address] [facility] [facility] 00[facility] 00 Center PENICILL Allergy Active High Hives 2014-[address] [facility] IN 1-30 [facility] 00:00: Medical 00 [place] NO KNOWN Allergy Active [facility] Social History Social Habit Start Date Stop Date Quantity Comments Source History SDOH [facility] Alcohol Std Drinks Medica l Center History SDOH [facility] Alcohol Binge Medical [facility] [facility] History SDOH [facility] Alcohol Comment Medical C enter Alcohol intake 2021-08-27 2021-08-[address] [facility] 00:00[facility]00 00[facility]00[facility]00 [facility] Cigarettes smoked 2021-08-21 2021-08-[address] [facility] current (pack per 00:00:00 00:00:00 [facility] Center day) - Reported Tobacco use and 2021-08-21 2021-08-[address] [facility] exposure 00:00:00 00:00:00 [facility] History SDOH 2021-08-21 2021-08-[address] [facility] Alcohol Frequency 00:00:00 00:00:00 [facility] Sex Assigned At [address] 00:00:00 00:00:00 [facility] Smoking Status Start Date Stop Date Source Current every day smoker 2021-08-21 00:00:00 [facility] Medications Ordered Filled Start Stop Current Ordering Indication Dosage Frequency Signature Comments Components Source Medication Medication Date Date Medication? Clinician (SIG) Name Name hydrALAZINE Yes 10mg Q.5D Take [address] [address] (APRESOLINE 5-20 by mouth 2 Dilma kes ) 10 MG 13:06: (two) Medical tablet 53 times Center daily. allopurinoL Yes 100mg Q.80586222 Take [address] (ZYLOPRIM) 5-20 [id number] mg by Dilma kes 100 MG 13:06: 3D mouth 3 Medical tablet 53 (three) Center times daily. sodium Yes 2{tbl} Q.39610711 Take [address] bicarbonate 5-20 [id number] tablets by [facility] 650 MG 13:06: 3D mouth 3 Medical tablet 53 (three) Center times daily. ferrous 0 Yes 325mg Take 325 [facility] sulfate 325 5-20 mg by [facility] (65 FE) MG 13:06: mouth Medica l tablet 53 daily with Center breakfast. cholecalcif 0 Yes Take by [facility] saurav, 5-20 [...] Medical ([place]) 53 Center 16.8 gram PwPk hydrALAZINE Yes 10mg Q.5D Take [address] (APRESOLINE 5-20 by mouth 2 Dilma kes ) 10 MG 13:06: (two) Medical tablet 53 times Center daily. allopurinoL 0 Yes 100mg Q.16111294 Take [address] (ZYLOPRIM) 5-20 [id number] mg by Dilma kes 100 MG 13:06: 3D mouth 3 Medical tablet 53 (three) Center times daily. sodium 0 Yes 2{tbl} Q.66095514 Take [address] bicarbonate 5-20 [id number] tablets by [facility] 650 MG 13:06: 3D mouth 3 Medical tablet 53 (three) Center times daily. ferrous 0 Yes 325mg Take 325 [facility] sulfate 325 5-20 mg by [facility] (65 FE) MG 13:06: mouth Medica l tablet 53 daily with Center breakfast. cholecalcif Yes Take by [facility] St saurav, 5-20 mouth. [facility]ukes vitamin D3, [...] [facility]ukes sorbitex 13:06: daily. Medical ([place]) 53 [place] 16.8 gram PwPk Vital Signs Vital Name Observation Time Observation Value Comments Source WEIGHT 2021-08-21 10:16:00 58.06 kg HEIGHT 2021-08-21 10:16:00 160 cm WEIGHT 2021-08-21 10:16:00 58.06 kg HEIGHT 2021-08-21 10:16:00 160 cm WEIGHT 2021-08-21 10:16:00 58.06 kg HEIGHT 2021-08-21 10:16:00 160 cm Systolic blood 2021-08-24 11:30:00 108 mm[Hg] [facility] pressure [facility] Diastolic blood 2021-08-24 11:30:00 51 mm[Hg] [facility] Heart rate 2021-08-24 11:30:00 61 /min [facility] Oxygen saturation in 2021-08-24 11:30:00 97 /min [facility] Arterial blood by Medical Ce nter Pulse oximetry Respiratory rate 2021-08-24 11:15:00 17 /min [facility] Body temperature 2021-08-24 11:09:00 36.61 Zayda [facility] Body height 2021-08-21 10:16:00 160 cm [facility] Body weight 2021-08-21 10:16:00 58.06 kg [facility] BMI 2021-08-21 10:16:00 22.67 kg/m2 [facility] Procedures Procedure Date / Time Performed Performing Clinician Aniya e POCT-GLUCOSE METER 2021-08-24 11:14:00 Erica Florence [facility] CREATION, AV FISTULA 2021-08-24 09:50:00 Erica Florence [facility] ANESTHESIA PERIPHERAL 2021-08-24 08:32:56 Emmanuel Martinez [facility] ABORH, MANUAL 2021-08-24 07:32:00 Lizzeth Hagen [facility] POTASSIUM 2021-08-24 07:15:00 [facility] 2021-08-24 00:00:00 Provider, Kristal [facility] XR CHEST 2 VIEWS 2021-08-21 10:49:00 Emmanuel Cormier [facility] ECG 12-LEAD 2021-08-21 10:09:27 Unknown, Hl7 Doctor [facility] ECG 12-LEAD 2021-08-21 10:09:27 Unknown, Hl7 Doctor [facility] SARS-COV2/RT-PCR ([facility] & 2021-08-21 10:04:00 Erica Florence [facility] REF LABS) [facility] BASIC METABOLIC PANEL 2021-08-21 10:04:00 Erica Florence [facility] CBC W/PLT COUNT & AUTO 2021-08-21 10:04:00 Erica Florence [facility] DIFFERENTIAL [facility] PT/APTT 2021-08-21 10:04:00 Erica Florence [facility] TYPE AND SCREEN, 2021-08-21 10:04:00 Erica Florence [facility] AUTOMATED [facility] CBC W/PLT COUNT & AUTO 2021-08-21 10:04:[address] [facility] Plan of Care Planned Activity Planned Date Details Comments Source Future Scheduled 2021-12-06 INFLUENZA VACCINE (#1) [facility] 00:00:00 [code = INFLUENZA Medical Ce nter VACCINE (#1)] Future Scheduled 2021-12-06 INFLUENZA VACCINE (#1) [facility] 00:00:00 [code = INFLUENZA Medical Ce nter VACCINE (#1)] Future Scheduled 2021-04-[address] [facility] Test 00:00:00 (12+) [code = [facility] DEPRESSION SCREENING (12+)] Future Scheduled 2021-04-[address] [facility] Test 00:00:00 (12+) [code = [facility] DEPRESSION SCREENING (12+)] Future Scheduled 2007-12-19 SHINGLES VACCINES ([address] [facility] Test 00:00:00 2) [facility] Future Scheduled 2007-12-19 SHINGLES VACCINES ([address] [facility] Test 00:00:00 2) [facility] Future Scheduled 2002 Lipid panel (procedure) [facility] Test 00:00:00 [code = 66775903] Medical Ce nter Future Scheduled 2002 Lipid panel (procedure) [facility] Test 00:00:00 [code = 50451390] Medical Ce nter Future Scheduled 1978 Screening for malignant [facility] Test 00:00:00 neoplasm of cervix Medical C enter (procedure) [code = 188119661] Future Scheduled 1978 Screening for malignant [facility] Test 00:00:00 neoplasm of cervix Medical C enter (procedure) [code = 278182936] Future Scheduled 1976 DTAP/TDAP/TD VACCINES [facility] 00:00:00 (1 - Tdap) [code = Medical C enter DTAP/TDAP/TD VACCINES (1 - Tdap)] Future Scheduled 1976 DTAP/TDAP/TD VACCINES [facility] 00:00:00 (1 - Tdap) [code = Medical C enter DTAP/TDAP/TD VACCINES (1 - Tdap)] Future Scheduled 1975-12-19 HEPATITIS C SCREENING [facility] 00:00[facility]00 [code = HEPATITIS C Medical Center SCREENING] Future Scheduled 1975-12-19 HEPATITIS C SCREENING [facility] 00:00:00 [code = HEPATITIS C Medical Center SCREENING] Future Scheduled [address] [facility] Test 00:00:00 Counseling and Medical Cente r Screening (12+) [code = Tobacco Cessation Counseling and Screening (12+)] Future Scheduled [address] [facility] Test 00:00:00 Counseling and Medical Cente r Screening (12+) [code = Tobacco Cessation Counseling and Screening (12+)] Future Scheduled 1963-12-[address] [facility] Test 00:00:00 0-64 YRS (1 - PCV) Medical C enter [code = PNEUMOCOCCAL VACCINE 0-64 YRS (1 - PCV)] Future Scheduled 1963-12-[address] [facility] Test 00:00:00 0-64 YRS (1 - PCV) Medical C enter [code = PNEUMOCOCCAL VACCINE 0-64 YRS (1 - PCV)] Future Scheduled 1958-06-17 COVID-19 VACCINE (#1) [facility] 00:00:00 [code = COVID-[address] VACCINE (#1)] Future Scheduled 1958-06-17 COVID-19 VACCINE (#1) [facility] 00:00:00 [code = COVID-[address] VACCINE (#1)] Future Scheduled 1957 Screening for malignant [facility] Test 00:00:00 neoplasm of breast Medical C enter (procedure) [code = 637903999] Future Scheduled 1957 CT Colonography (combo) [facility] Test 00:00:00 [code = CT Colonography [facility] (combo)] Future Scheduled 1957 Screening for malignant [facility] Test 00:00:00 neoplasm of colon Medical Ce nter (procedure) [code = 946485718] Future Scheduled 1957 Screening for malignant [facility] Test 00:00:00 neoplasm of colon Medical Ce nter (procedure) [code = 029285782] Future Scheduled 1957 Screening for malignant [facility] Test 00:00:00 neoplasm of colon Medical Ce nter (procedure) [code = 439258965] Future Scheduled 1957 Screening for malignant [facility] Test 00:00:00 neoplasm of colon Medical Ce nter (procedure) [code = 208838552] Future Scheduled 1955 Sigmoidoscopy [code = [facility] 00:00:00 Sigmoidoscopy] Medical Cente r Future Scheduled 1957 Screening for malignant [facility] Test 00:00:00 neoplasm of breast Medical C enter (procedure) [code = 317154821] Future Scheduled 1957 CT Colonography (combo) [facility] Test 00:00:00 [code = CT Colonography [facility] (combo)] Future Scheduled 1957 Screening for malignant [facility] Test 00:00:00 neoplasm of colon Medical Ce nter (procedure) [code = 250942348] Future Scheduled 1957 Screening for malignant [facility] Test 00:00:00 neoplasm of colon Medical Ce nter (procedure) [code = 212457311] Future Scheduled 1957 Screening for malignant [facility] Test 00:00:00 neoplasm of colon Medical Ce nter (procedure) [code = 733563841] Future Scheduled 1957 Screening for malignant [facility] Test 00:00:00 neoplasm of colon Medical Ce nter (procedure) [code = 829993684] Future Scheduled 1955 Sigmoidoscopy [code = [facility] Test 00:00:00 Sigmoidoscopy] Medical Cente r Encounters Start End Encounter Admission Attending Care Care Encounter Source Date/Time Date/Time Type Type Clinicians Facility Department ID 2021-08-24 2021-08-24 Surgery [facility] [id number] 10:20:00 12:20:00 [facility] 2021-08-24 2021-08-24 [facility] [id number] 10:20:00 12:20:00 [facility] 2021-08-24 2021-08-24 [id number] 06:19:00 12:15[facility]00 [facility] 2021-08-24 2021-08-24 [id number] [facility] 06:19:00 12[facility]15:[facility] 2021-08-24 2021-08-24 [facility] [id number] 06:19:00 12:15:00 [facility] 2021-08-24 2021-08-24 Anesthesia Emmanuel Cormier [facility] [id number] [facility] 09:50:00 11:07:00 Event [facility] 2021-08-24 2021-08-24 Anesthesia CormierEmmanuel escobar [facility] [id number] [facility] 09:50:00 11:07:00 Event [facility] 2021-08-24 2021-08-24 Travel [facility] [id number] [facility] 00[facility] 00:00:00 [facility] 2021-08-24 2021-08-24 Travel [facility] [id number] [facility] 00:[facility]00 00:00:00 [facility] 2021-08-21 2021-08-21 [facility] [id number] 10:03:34 23:59:00 Encounter [facility] 2021-08-21 2021-08-21 Outpatient EL [facility]SL [facility] [id number] [facility] 10:03:34 23:59:00 2021-08-21 2021-08-21 [facility] [id number] 10:03:34 23:59:00 Encounter [facility] 2021-08-21 2021-08-21 Orders [facility] [id number] 00:00:00 00:00:00 Only [facility] 2021-08-21 2021-08-21 Travel [facility] [id number] [facility] 00:[facility]00 00:00:00 [facility] 2021-08-21 2021-08-21 Orders [facility] [id number] [facility] [address] 00:00:00 00:00:00 Only [facility] 2021-08-21 2021-08-21 Travel [facility] [id number] [facility] 00:[facility]00 00:00:00 [facility] 2020-12-16 2020-12-16 Outpatient Andre CAAL [facility] [id number] 11:00:00 11:00:00 ALISIA ashford [facility] 2020-01-27 2020-01-27 Outpatient [facility] [id number] [facility] 10:12:00 23:59:00 GUERLINE Results Test Description Test Time Test Comments Results Result Comments Source POC-Glucose meter 2021-08-24 11:26:00 Test Item Value Reference Range Interpretation Comme nts POC-Glucose Meter (test code = 93 mg/dL 70-110 : TESTED AT [facility] [address]) [place] [address]: Stone Gluer/Techni swathi ID = [id number] for Hiren, Salat Lab Interpretation (test code = Normal 12405-4) [facility] [id number] 11:26:00 Test Item Value Reference Range Interpretation Comments POC-Glucose Meter (test 93 mg/dL 70-110 : TE STED AT [facility] code = 1538) [address] [place] [address]: Stone Gluer/Techni swathi ID = [id number] for Hiren, Salat Lab Interpretation (test Normal code = 15660-4) [facility]-GLUCOSE [id number] 11:26:00 Test Item Value Reference Range Interpretation Comments POC-GLUCOSE METER 93 mg/dL 70-110 : TESTED A T [facility] [address] (BEAKER) (test code = [address] [facility], 1538) [place] [address]38: Stone Gluer/Techni swathi ID = [id number] for Anto ny, Salat [id number] 07:33:20 Test Item Value Reference Range Interpretation Comments POTASSIUM (BEAKER) (test code = 3.5 meq/L 3.6-5.5 L 379) Stone Gluer ID - DSENSONOperator ID - DSENSONOperator ID - DSENSONOperator ID - DSENSONSARS-CoV2/RT-PCR (Asymptomatic ONLY)2021-08-21 14:15:11 Test Item Value Reference Interpretation Comments Range SARS-COV2/RT-PCR Negative Negative The SARS-Co V-2 (test code = target nucleic 75418-6) acids are not detected in thi s [...] revoked sooner. Fact Sheet for Healthcare Providers: https://www.[employer]/Documents/Xp ert%20Xpress%20SAR S%20CoV-2/Fact%20S heets/3023802%20S ARS-COV-2%20HEALTH CARE%20PROVIDERS%2 0FACT%20SHEET.pdf Fact Sheet for Healthcare Patients: https://www.[employer]/Documents/Xp ert%20Xpress%20SAR S%20CoV-2/Fact%20S heets/3023801%20S ARS-COV-2%20PATIEN T%20FACT%20SHEET.p df Lab Interpretation Normal (test code = 30755-4) [facility] ONLY[facility]2021-08-21 14:15:11 Test Item Value Reference Interpretation Comments Range SARS-COV2/RT-PCR Negative Negative The SARS-Co V-2 (test code = target nucleic 32815-3) acids are not detected in thi s specimen. Negat joseyln results do not preclude SARS-C oV-2 infection [...] revoked sooner. Fact Sheet for Healthcare Providers: https://www.[employer]/Documents/Xp ert%20Xpress%20SAR S%20CoV-2/Fact%20S heets/302-3802%20S ARS-COV-2%20HEALTH CARE%20PROVIDERS%2 0FACT%20SHEET.pdf Fact Sheet for Healthcare Patients: https://www.[employer]/Documents/Xp ert%20Xpress%20SAR S%20CoV-2/Fact%20S heets/302-3801%20S ARS-COV-2%20PATIEN T%20FACT%20SHEET.p df Lab Interpretation Normal (test code = 96454-8) [facility] ([facility] & REF LABS)2021-08-21 14:15:11 Test Item Value Reference Range Interpretation Comments SARS-COV2/RT-PCR Negative Negative The SARS-Co V-2 target (test code = nucleic acids a re not 7567623) detected in thi s specimen. Negative result [...] revoked sooner. Fact Sheet for Healthcare Providers: https://www.YaB[employer] m/Documents/Xpert%20Xpress%20SARS%20CoV-2/Fact%20Sheets/3023802%34ZABO-XKU-1%20 HEALTHCARE%20PROVIDERS%20FACT%20SHEET.pdf Fact Sheet for Healthcare Patients: https://www.[employer]/Documents/Xpert%20Xp ress%20SARS%20CoV-2/Fact%20Sheets/3023801%94BMXF-GRD-4%20PATIENT%20FACT%20SHEET .pdfBASI METABOLIC [id number] 11:08:40 Test Item Value Reference Range Interpretation [...] 1092) DATA TO CALCULA TE ESTIMATED GFR. Stone Gluer ID - DSENSONOperator ID - DSENSONOperator ID - DSENSONOperator ID - DSENSONOperator ID - DSENSONOperator ID - DSENSONOperator ID - DSENSONOperator ID - DSENSONOperator ID - DSENSONOperator ID - DSENSONOperator ID - DSENSONOperator ID - DSENSONOperator ID - DSENSONRAD, CHEST, 2 [id number] 10:58:00Reason for exam:->preopShould this be performed at the bedside?->NoC[facility]INEL[facility]: ZAYRA GAFFNEY : 1955 Sex: FFINAL REPORT History provided: Preoperative assessment CHEST PA AND LATERAL: Normal cardiomediastinal silhouette. Lungs are fully expanded and clear. CONCLUSION: Normal two-view chest examination. Signed: Micah Castanedaort Verified Date/Time: 08/21/2021 10:58:02 Reading Location: [facility] Radiology Reading Room [id number] 10:50:31 Test Item Value Reference Range Interpretation Comments PROTIME (BEAKER) (test 10.7 seconds 9.3-12.0 Final Information code = 759) (Auto Output) INR (BEAKER) (test 0.97 See_Comment Final Inf ormation code = 370) (Auto Output) [Automated mess age] The system [employer] generated this result transmit meenakshi reference range [...] mechanical heart valves.CBC W/PLT COUNT & AUTO [id number] 10:37:08 Test Item Value Reference Range Interpretation [...]
[2022-03-26 18:04] LABS: Absolute Lymphocytes (CBC) 0.8 K/uL (0.7-4.9); MCV 101.3 fL (80-100); MPV 9.3 fL (7.6-11.3); RBC Red Blood Cell Count 3.36 M/uL (3.86-4.86)
[2022-03-26 18:10] LABS: Albumin 3.7 g/dL (3.4-5.0); Bilirubin Total 0.4 mg/dL (0.2-1.0); Potassium 4.6 mmol/L (3.5-5.1); Protein, Total 7.2 g/dL (6.4-8.2)
--- NOTE | 2022-03-26 18:17 | RAD REPORT ---
EXAM DESCRIPTION: RAD - Chest Single View - 03/26/2022 6:10 pm CLINICAL HISTORY: FEVER Chest pain. COMPARISON: Chest Pa And Lat (2 Views) dated 12/18/2021; Chest Pa And Lat (2 Views) dated 07/17/2021; Chest Single View dated 03/13/2021; Chest Single View dated 03/12/2021 FINDINGS: Portable technique limits examination quality. Interstitial markings are prominent suggesting a viral infection. The heart is normal in size. No dis placed fractures.
--- NOTE | 2022-03-26 18:24 | ER ---
Nurse's Notes [facility] Name: Dawn Rolle Age: 66 yrs Sex: Female : 1955 Arrival Date: 03/26/2022 Time: 17:01 Bed 12 Private MD: Diagnosis: Coronavirus infection, unspecified;Fever, unspecified;Anemia, unspecified Presentation: 03/26 17:12 Chief complaint: Patient states: Fever since yesterday, Covid + today, ESRD M-W-F; Dr. jamir Mejias sent to ER for COVID + with fever and she will not have dialysis tomorrow due to the positive test. Coronavirus screen: Vaccine status: Patient reports receiving the 2nd dose of the covid vaccine. fever. Ebola Screen: No symptoms or risks identified at this time. Initial Sepsis Screen: Does the patient meet any 2 criteria? No. Patient's initial sepsis screen is negative. Does the patient have a suspected source of infection? No. Patient's initial sepsis screen is negative. Risk Assessment: Do you want to hurt yourself or someone else? Patient reports no desire to harm self or others. Onset of symptoms was March 25, 2022. Care prior to arrival: None. 17:12 Method Of Arrival: Ambulatory [facility] 17:12 Acuity: MECCA 3 jl7 Triage Assessment: 17:15 General: Appears in no apparent distress. uncomfortable, Behavior is calm, cooperative, jl7 appropriate for age. Pain: Denies pain. Historical: - Allergies: 17:15 Codeine; jl7 17:15 Morphine; jl7 17:15 PENICILLINS; jl7 - PMHx: 17:15 ESRD; Hypertension; kidney disease; Kidney stones; Leukemia; Dialysis M-W-T; jl7 - PSHx: 17:15 Cholecystectomy; fistula left upper arm; jl7 - Immunization history:: Client reports receiving the 2nd dose of the Covid vaccine. - Social history:: Smoking status: Patient reports the use of cigarette tobacco products, smokes one pack cigarettes per day. Vital Signs: 17:12 BP 161 / 70; Pulse 80; Resp 17; Temp 99.2; Pulse Ox 98% on R/A; Weight 58.06 kg; Height jl7 5 ft. 2 in. (157.48 cm); Pain 0/10; 17:12 Body Mass Index 23.41 (58.06 kg, 157.48 cm) jl7 ED Course: 17:01 Patient arrived in ED. mr 17:02 Jimmy Vargas DO is Attending Physician. ms3 17:15 Triage completed. jl7 17:15 Arm band placed on right wrist. jl7 17:25 Ann-Marie Cleaning, RN is Primary Nurse. iw 18:12 CXR XRAY In Process Unspecified. EDMS Administered Medications: No medications were administered Outcome: 18:24 Discharge ordered by . ms3 18:39 Patient left the ED. iw Signatures: Dispatcher [employer] EDMS Sallie Pickering mr Ann-Marie Cleaning RN RN iw Lacy Guzman RN RN jl7 Jimmy Vargas DO DO ms3
--- NOTE | 2022-03-26 18:25 | EDPHYS ---
Physician Documentation [facility] Name: Dawn Rolle Age: 66 yrs Sex: Female : 1955 Arrival Date: 03/26/2022 Time: 17:01 Bed 12 Private MD: ED Physician Jimmy Vargas HPI: 03/26 17:28 This 66 yrs old Female presents to ER via Ambulatory with complaints of ms3 Covid+, Fever. 17:28 The patient reports fever, that was measured at 101 degrees Fahrenheit. Onset: The ms3 symptoms/episode began/occurred yesterday. Modifying factors: Recent medications: acetaminophen. Associated signs and symptoms: Pertinent positives: cough. Severity of symptoms: At their worst the symptoms were mild in the emergency department the symptoms are unchanged Pain is currently a 0 / 10. Historical: - Allergies: 17:15 Codeine; jl7 17:15 Morphine; jl7 17:15 PENICILLINS; jl7 - PMHx: 17:15 ESRD; Hypertension; kidney disease; Kidney stones; Leukemia; Dialysis M-W-T; jl7 - PSHx: 17:15 Cholecystectomy; fistula left upper arm; jl7 - Immunization history:: Client reports receiving the 2nd dose of the Covid vaccine. - Social history:: Smoking status: Patient reports the use of cigarette tobacco products, smokes one pack cigarettes per day. ROS: 17:28 ENT: Negative for injury, pain, and discharge, Neck: Negative for injury, pain, and ms3 swelling, Cardiovascular: Negative for chest pain, and palpitations. 17:28 MS/Extremity: Negative for injury and deformity, Skin: Negative for injury, rash, and discoloration. 17:28 Constitutional: Positive for chills, fever. 17:28 Respiratory: Positive for cough. 17:28 All other systems are negative. Exam: 17:28 Constitutional: This is a well developed, well nourished patient who is awake, alert, ms3 and in no acute distress. Head/Face: Normocephalic, atraumatic. Neck: Trachea midline, no cervical lymphadenopathy. Supple, full range of motion without nuchal rigidity, or vertebral point tenderness. No Meningismus. Chest/axilla: Normal chest wall appearance and motion. Nontender with no deformity. Cardiovascular: Regular rate and rhythm with a normal S1 and S2. No gallops, murmurs, or rubs. Normal PMI, no JVD. No pulse deficits. Respiratory: Lungs have equal breath sounds bilaterally, clear to auscultation and percussion. No rales, rhonchi or wheezes noted. No increased work of breathing, no retractions or nasal flaring. Abdomen/GI: Soft, non-tender, with normal bowel sounds. No distension or tympany. No guarding or rebound. No evidence of tenderness throughout. Skin: Warm, dry with normal turgor. Normal color with no rashes, no lesions, and no evidence of cellulitis. MS/ Extremity: Pulses equal, no cyanosis. Neurovascular intact. Full, normal range of motion. Vital Signs: 17:12 BP 161 / 70; Pulse 80; Resp 17; Temp 99.2; Pulse Ox 98% on R/A; Weight 58.06 kg; Height jl7 5 ft. 2 in. (157.48 cm); Pain 0/10; 17:12 Body Mass Index 23.41 (58.06 kg, 157.48 cm) jl7 MDM: 17:21 Patient medically screened. ms3 17:28 ED course: Discussed case with Dr Mejias. She would like CBC, CMP, CXR obtained. Patient ms3 will need to contact dialysis to switch to the Friday, , Friday covid group.. 17:28 Differential diagnosis: COVID vs Hyperkalemia vs PNA. ms3 18:24 Data reviewed: vital signs, nurses notes, lab test result(s), radiologic studies, and ms3 as a result, I will discharge patient. Counseling: I had a detailed discussion with the patient and/or guardian regarding: the historical points, exam findings, and any diagnostic results supporting the discharge/admit diagnosis, lab results, radiology results, the need for outpatient follow up, to return to the emergency department if symptoms worsen or persist or if there are any questions or concerns that arise at home. 03/26 17:28 Order name: CBC with Diff; Complete Time: 18:22 ms3 03/26 17:28 Order name: CMP; Complete Time: 18:22 ms3 03/26 17: Order name: CXR XRAY; Complete Time: 18: ms3 Administered Medications: No medications were administered Disposition Summary: 03/26/22 18:24 Discharge Ordered Location: Home ms3 Condition: Stable ms3 Diagnosis - Coronavirus infection, unspecified ms3 - Fever, unspecified ms3 - Anemia, unspecified ms3 Followup: ms3 - With: Private Physician - When: 2 - 3 days - Reason: Recheck today's complaints Discharge Instructions: - Discharge Summary Sheet ms3 - Anemia ms3 - Fever, Adult ms3 - COVID-19 ms3 - COVID-19 Frequently Asked Questions ms3 - COVID-19: Quarantine vs. Isolation - [facility] ms3 Forms: - Medication Reconciliation Form ms3 - Thank You Letter ms3 - Antibiotic Education ms3 - Prescription Opioid Use ms3 Signatures: Dispatcher [employer] Lacy Gonzalez RN RN jl7 Jimmy Vargas DO DO ms3
[2022-03-26 18:49] VITALS: BP 161/70; TEMP 99.2; O2SAT 98
== END 2022-03-26 18:39 | disposition home or self-care (01) ==
LOC: ER 16:58
DX: U07.1 COVID-19 (principal); D64.9 Anemia, unspecified; I12.0 Hypertensive chronic kidney disease with stage 5 chronic kidney disease or end stage renal disease; N18.6 End stage renal disease; Z99.2 Dependence on renal dialysis; F17.210 Nicotine dependence, cigarettes, uncomplicated; Z88.0 Allergy status to penicillin; Z88.5 Allergy status to narcotic agent
CPT/HCPCS: 36415; 71045; 80053; 85025; 99282

== ENCOUNTER 2022-11-14 07:20 | Day surgery (SDC) | payer OTHER ==
[2022-11-11 10:03] LABS: Absolute Lymphocytes (CBC) 2.2 K/uL (0.7-4.9); Hematocrit 39.9 % (36.0-45.0); Lymphocytes % 29.2 % (15.3-44.8); MCV 103.8 fL (80-100); MPV 9.6 fL (7.6-11.3); Platelets 161 thou/uL (152-406); RBC Red Blood Cell Count 3.84 M/uL (3.86-4.86)
[2022-11-11 10:12] LABS: Protime INR 0.92
[2022-11-11 10:18] LABS: Potassium 5.4 mEq/L (3.5-5.1)
--- NOTE | 2022-11-11 12:20 | RAD REPORT ---
EXAM DESCRIPTION: [facility] Pa And Lat (2 Views)11/11/2022 10:38 am CLINICAL HISTORY: pre op pending heart catheterization. Hypertension COMPARISON: Chest Single View dated 03/26/2022; Chest Pa And Lat (2 Views) dated 12/18/2021; Chest Pa And Lat (2 Views) dated 07/17/2021; Chest Single View dated 03/13/2021 TECHNIQUE: PA and lateral views of the chest. FINDINGS: The lungs are clear. No pneumothorax or effusion. The cardiomediastinal contours are unrem arkable. IMPRESSION: No acute cardiopulmonary process.
--- NOTE | 2022-11-11 12:59 | EKG ---
Test Date: 2022-11-11 Test Time: 09:19:27 Service Rig Operator: YIFAN MEASUREMENT RESULTS: Intervals: Rate: 59 [place]: 98 QRSD: 100 QT: 420 QTc: 415 [place]: P: 50 AZ: 98 QRS: -14 T: -17 INTERPRETIVE STATEMENTS: Sinus bradycardia with short [place] Voltage criteria for left ventricular hypertrophy Abnormal ECG Compared to ECG 07/04/2021 15:10:11 Short [place] interval now present Left ventricular hypertrophy now present ST (T wave) deviation no longer present Electronically Signed On 11-11-22 12:58:24 CDT by Shane Montana
[~2022-11-14 07:20] MED LIST: ASPIRIN 325 MG TAB ONE; ATROPINE SULF 1 MG/10 ML SYR IV ONE; CLOPIDOGREL 75 MG TABLET ONE; FENTANYL CITR 100 MCG/2 ML ONE; HEPA 1000U/500MLS 2,000 UNIT/1,000 ML BAG IV ONE; HEPARIN 10,000 UNIT/10 ML VIAL IV ONE; HEPARIN 5000 UNIT/ML 1 ML VIAL ONE; LIDOCAINE 1% 20 ML MDV ONE; MIDAZOLAM HCL 2 MG/2 ML INJ ONE; NITROGLYCERIN 100 MCG/ML SYR (for cath lab use only) IV ONE; NITROGLYCERIN/D5W 25 MG/250 ML BTL IV ONE; TICAGRELOR 90 MG TABLET PO ONE; VERAPAMIL HCL 10 MG/4 ML VIAL IV ONE
[2022-11-14] MEDS ORDERED: NA CHLORIDE 0.9% 500 ML ONE (07:37)
--- NOTE | 2022-11-14 09:00 | OP ---
Date of Procedure: 11/14/2022 Surgeon: WINDY TRISTAN Procedures Performed: 1.Selective coronary angiogram. 2.Left heart catheterization. Indication: Chest pain with abnormal stress test. Access: Right radial artery 6-Pashto closed with TR band. Complications: None. Bleeding: Less than 20 mL. Anesthesia: Total sedation time was 20 minutes, used fentanyl and Versed. Description Of Procedure: After risks, benefits, alternatives explained, the patient agreed to proce dure and signed informed consent. The patient was brought into the cardiac catheterization laborator y, prepped and draped in the usual sterile fashion. Then, I accessed right radial artery using [employer] micropuncture kit, placed 6-Pashto Slender sheath, took 5-Pashto Axtell 4.0 catheter into the aor tic root, engaged left main and then right coronary artery and took standard views, and then the cath eter was pushed over the wire into the LV, measured LVEDP, and pullback did not record any gradient, and then I removed the catheter and sheath, placed TR band with good hemostasis. Findings: 1.Left main is normal. 2.LAD is normal. Normal diagonal branches. 3.Left circumflex is normal. 4.RCA is normal and it is dominant. 5.Normal LVEDP between 8 to 10 mmHg. Conclusion: 1.Normal coronary arteries. 2.Normal LVEDP. Plan: Medical management. /MODL Voice ID: [id number] Report ID: [id number]
[2022-11-14 12:34] VITALS: BP 129/62; O2SAT 98
== END 2022-11-14 10:35 | disposition home or self-care (01) ==
LOC: CCL 07:20
PROVIDERS: ATTEND Internal Medicine
DX: R94.39 Abnormal result of other cardiovascular function study (principal); R07.9 Chest pain, unspecified; I12.0 Hypertensive chronic kidney disease with stage 5 chronic kidney disease or end stage renal disease; E11.22 Type 2 diabetes mellitus with diabetic chronic kidney disease; N18.6 End stage renal disease; I70.212 Atherosclerosis of native arteries of extremities with intermittent claudication, left leg; Z99.2 Dependence on renal dialysis; R09.89 Other specified symptoms and signs involving the circulatory and respiratory systems; K21.9 Gastro-esophageal reflux disease without esophagitis; F17.210 Nicotine dependence, cigarettes, uncomplicated; Z79.4 Long term (current) use of insulin; Z79.899 Other long term (current) drug therapy; Z88.5 Allergy status to narcotic agent; Z88.0 Allergy status to penicillin
CPT/HCPCS: 93005; 85025; 80048; 36415; 85610; 85730; 71046; 93458; 76937; C1893; Q9966; J1644; J2001; J2250; J3010; J7040; J0461

== ENCOUNTER → 2023-04-14 | Emergency (ER) | payer OTHER ==
[2023-04-14 22:38] LABS: SARS-CoV-2 Antigen Rapid Res Negative (Negative)
[2023-04-14 23:04] LABS: Potassium 5.1 mEq/L (3.5-5.1)
--- NOTE | 2023-04-14 23:11 | EDPHYS ---
Physician Documentation [facility] Name: Dawn Rolle Age: 67 yrs Sex: Female : 1955 Arrival Date: 04/14/2023 Time: 19:46 Bed DX4 Private MD: Edgar [facility], [facility] ED Physician Austen Whalen HPI: 04/14 20:11 This 67 yrs old Female presents to ER via Ambulatory with complaints of Low bp.sp4 20:27 Ms. Rolle gets 3hr of dialysis M-W-, she states she has had diarrhea x 1 week, given snw rx today. Pt states she has had low blood pressure all day.. Onset: The symptoms/episode began/occurred suddenly. Severity of symptoms: At their worst the symptoms were mild moderate. It is unknown whether or not the patient has had similar symptoms in the past. The patient has been recently seen by a physician:. Historical: - Allergies: 20:04 Codeine; bp 20:04 Morphine; bp 20:04 PENICILLINS; bp - PMHx: 20:04 Dialysis M-W-T; ESRD; Hypertension; kidney disease; Kidney stones; Leukemia; bp - PSHx: 20:04 Cholecystectomy; fistula left upper arm; bp - Immunization history:: Adult Immunizations up to date. - Social history:: Smoking status: Patient denies any tobacco usage or history of. ROS: 20:27 Constitutional: Negative for fever, chills, and weight loss, Eyes: Negative for injury, snw pain, redness, and discharge, ENT: Negative for injury, pain, and discharge, Neck: Negative for injury, pain, and swelling, Cardiovascular: Negative for chest pain, palpitations, and edema, Respiratory: Negative for shortness of breath, cough, wheezing, and pleuritic chest pain, Abdomen/GI: Negative for abdominal pain, nausea, vomiting, diarrhea, and constipation, Back: Negative for injury and pain, : Negative for injury, bleeding, discharge, and swelling, MS/Extremity: Negative for injury and deformity, Skin: Negative for injury, rash, and discoloration, Psych: Negative for depression, anxiety, suicide ideation, homicidal ideation, and hallucinations, 20:27 Neuro: Positive for near syncope, Exam: 20:29 Constitutional: This is a well developed, well nourished patient who is awake, alert, snw and in no acute distress. Head/Face: Normocephalic, atraumatic. Eyes: Pupils equal round and reactive to light, extra-ocular motions intact. Lids and lashes normal. Conjunctiva and sclera are non-icteric and not injected. Cornea within normal limits. Periorbital areas with no swelling, redness, or edema. ENT: Nares patent. No nasal discharge, no septal abnormalities noted. Tympanic membranes are normal and external auditory canals are clear. Oropharynx with no redness, swelling, or masses, exudates, or evidence of obstruction, uvula midline. Mucous membranes moist. Neck: Trachea midline, no thyromegaly or masses palpated, and no cervical lymphadenopathy. Supple, full range of motion without nuchal rigidity, or vertebral point tenderness. No Meningismus. Chest/axilla: Normal chest wall appearance and motion. Nontender with no deformity. No lesions are appreciated. Cardiovascular: Regular rate and rhythm with a normal S1 and S2. No gallops, murmurs, or rubs. Normal PMI, no JVD. No pulse deficits. Respiratory: Lungs have equal breath sounds bilaterally, clear to auscultation and percussion. No rales, rhonchi or wheezes noted. No increased work of breathing, no retractions or nasal flaring. Abdomen/GI: Soft, non-tender, with normal bowel sounds. No distension or tympany. No guarding or rebound. No evidence of tenderness throughout. Back: No spinal tenderness. No costovertebral tenderness. Full range of motion. Skin: Warm, dry with normal turgor. Normal color with no rashes, no lesions, and no evidence of cellulitis. MS/ Extremity: Pulses equal, no cyanosis. Neurovascular intact. Full, normal range of motion. Neuro: Awake and alert, GCS 15, oriented to person, place, time, and situation. Cranial nerves II-XII grossly intact. Motor strength 5/5 in all extremities. Sensory grossly intact. Cerebellar exam normal. Normal gait. Psych: Awake, alert, with orientation to person, place and time. Behavior, mood, and affect are within normal limits. Vital Signs: 20:03 BP 117 / 62; Pulse 67; Resp 16; Temp 98.1; Pulse Ox 99% ; Weight 58.97 kg; Height 5 ft. bp 3 in. ; 22:49 BP 123 / 52; Pulse 62; Pain 0/10; tm6 23:33 BP 117 / 54; Pulse 60; Resp 16; Pulse Ox 99% ; vc1 20:03 Body Mass Index 23.03 (58.97 kg, 160.02 cm) bp 22:49 Pain Scale: Adult tm6 MDM: 20:12 Patient medically screened. snw 20:29 Differential Diagnosis hypotension of dialysis, dehydration, electrolyte derangement. snw Data reviewed: vital signs, nurses notes. 04/14 20:09 Order name: BMP; Complete Time: 23:04 bp 04/14 20:30 Order name: Flu; Complete Time: 22:52 snw 04/14 20:30 Order name: SARS RAPID; Complete Time: 22:49 snw Administered Medications: No medications were administered Disposition: 23:21 Co-signature as Attending Physician, Austen Whlaen MD I agree with the assessment sp4 and plan of care. I reviewed the patient's care provided by Advanced Practice Provider \T\ agree w/ the diagnosis \T\ care plan. I personally saw the pt \T\ performed a substantive portion of the visit, incldng all aspects of the (History/Exam/Medical Decision Making). Disposition Summary: 04/14/23 23:10 Discharge Ordered Notes: Location: Home snw Condition: Stable snw Diagnosis - Hypotension of hemodialysis snw Followup: snw - With: Emergency Department - When: As needed - Reason: Worsening of condition Followup: snw - With: Chris Hernández, DO - When: 2 - 3 days - Reason: Recheck today's complaints, Continuance of care, Re-evaluation by your physician Discharge Instructions: - Discharge Summary Sheet snw - Hypotension snw - Near-Syncope snw Forms: - Medication Reconciliation Form snw - Thank You Letter snw - Antibiotic Education snw - Prescription Opioid Use snw - Patient Portal Instructions snw - Leadership Thank You Letter snw Signatures: Dispatcher [employer] Celine Mcdonald FNP-C FNP-Chuw Kirby Piña, RN RN Austen Chirinos MD MD sp4
--- NOTE | 2023-04-14 23:11 | ER ---
Nurse's Notes [facility] Name: Dawn Rolle Age: 67 yrs Sex: Female : 1955 Arrival Date: 04/14/2023 Time: 19:46 Bed DX4 Private MD: Chris Hernández Diagnosis: Hypotension of hemodialysis Presentation: 04/14 20:03 Chief complaint: Patient states: SUBJECTIVE HYPOTENSION AFTER SCHEDULED DIALYSIS. bp Coronavirus screen: At this time, the client does not indicate any symptoms associated with coronavirus-19. Ebola Screen: No symptoms or risks identified at this time. Initial Sepsis Screen: Does the patient meet any 2 criteria? No. Patient's initial sepsis screen is negative. Does the patient have a suspected source of infection? No. Patient's initial sepsis screen is negative. Risk Assessment: Do you want to hurt yourself or someone else? Patient reports no desire to harm self or others. Onset of symptoms was April 14, 2023. 20:03 Method Of Arrival: Ambulatory bp 20:03 Acuity: MECCA 3 bp Historical: - Allergies: 20:04 Codeine; bp 20:04 Morphine; bp 20:04 PENICILLINS; bp - PMHx: 20:04 Dialysis M-W-T; ESRD; Hypertension; kidney disease; Kidney stones; Leukemia; bp - PSHx: 20:04 Cholecystectomy; fistula left upper arm; bp - Immunization history:: Adult Immunizations up to date. - Social history:: Smoking status: Patient denies any tobacco usage or history of. Screenin:49 [facility] ED Fall Risk Assessment (Adult) History of falling in the last 3 months, tm6 including since admission No falls in past 3 months (0 pts). Abuse screen: Denies threats or abuse. Denies injuries from another. Nutritional screening: No deficits noted. Tuberculosis screening: No symptoms or risk factors identified. Assessment: 22:49 General: Appears in no apparent distress. Behavior is calm, cooperative. Pain: Denies tm6 pain. Neuro: Level of Consciousness is awake, alert, obeys commands, Oriented to person, place, time, situation. Cardiovascular: Capillary refill < 3 seconds Patient's skin is warm and dry. Respiratory: Airway is patent Respiratory effort is even, unlabored, Respiratory pattern is regular, symmetrical. GI: No signs and/or symptoms were reported involving the gastrointestinal system. : No signs and/or symptoms were reported regarding the genitourinary system. EENT: No signs and/or symptoms were reported regarding the EENT system. Derm: No signs and/or symptoms reported regarding the dermatologic system. Musculoskeletal: No signs and/or symptoms reported regarding the musculoskeletal system. 23:33 Reassessment: Patient and/or family updated on plan of care and expected duration. Pain vc1 level reassessed. Patient is alert, oriented x 3, equal unlabored respirations, skin warm/dry/pink. Patient states feeling better. Patient states symptoms have improved. Vital Signs: 20:03 BP 117 / 62; Pulse 67; Resp 16; Temp 98.1; Pulse Ox 99% ; Weight 58.97 kg; Height 5 ft. bp 3 in. ; 22:49 BP 123 / 52; Pulse 62; Pain 0/10; tm6 23:33 BP 117 / 54; Pulse 60; Resp 16; Pulse Ox 99% ; vc1 20:03 Body Mass Index 23.03 (58.97 kg, 160.02 cm) bp 22:49 Pain Scale: Adult tm6 ED Course: 19:49 Patient arrived in ED. mr 19:49 Chris Hernández DO is Private Physician. mr 20:04 Triage completed. bp 20:04 Arm band placed on. bp 20:11 Austen Whalen MD is Attending Physician. sp4 20:11 [facility]C [facility] snw 22:19 SARS RAPID Sent. pm6 22:19 Flu Sent. pm6 22:19 BMP Sent. pm6 22:49 Patient has correct armband on for positive identification. Provided Education on: plan tm6 of care. 22:49 No provider procedures requiring assistance completed. tm6 23:10 Chris Hernández DO is Referral Physician. snw 23:34 Patient did not have IV access during this emergency room visit. vc1 Administered Medications: No medications were administered Medication: 22:49 VIS not applicable for this client. tm6 Outcome: 23:10 Discharge ordered by . snw 23:34 Discharged to home ambulatory, vc1 23:34 Condition: good 23:34 Discharge instructions given to patient, Instructed on discharge instructions, follow up and referral plans. Demonstrated understanding of instructions, follow-up care, 23:34 Patient left the ED. vc1 Signatures: Celine Wilson, RETAIL LINK ANALYST-C RETAIL LINK ANALYST-Csnw Raheel, Sallie, Reg Reg mr Kirby Piña, RN RN bp Sandrine Rider RN RN vc1 Austen Whalen MD MD sp4 Tanika Akins RN RN tm6 Lynnette De Guzman pm6 Corrections: (The following items were deleted from the chart) 22:20 22:19 Inserted pm6 pm6
[2023-04-15 03:45] VITALS: TEMP 98.1; O2SAT 99
[2023-04-15 03:55] VITALS: BP 117/54
== END ==
LOC: ER 19:46
DX: I95.3 Hypotension of hemodialysis (principal); I12.0 Hypertensive chronic kidney disease with stage 5 chronic kidney disease or end stage renal disease; N18.6 End stage renal disease; Z99.2 Dependence on renal dialysis; Z11.52 Encounter for screening for COVID-19; Z88.0 Allergy status to penicillin; Z88.5 Allergy status to narcotic agent
CPT/HCPCS: 36415; 80048; 87804; 87811; 99283

== ENCOUNTER 2024-01-07 06:13 | Day surgery (SDC) | payer OTHER ==
[2024-01-06 08:53] LABS: Absolute Basophils 0.1 K/uL (0-0.5); Absolute Eosinophils 0.3 K/uL (0-0.5); Absolute Lymphocytes (CBC) 1.8 K/uL (0.7-4.9); Absolute Monocytes 0.5 K/uL (0.1-1.3); Basophils % 1.1 % (0-1.3); Eosinophils % 4.8 % (0-4.4); Hematocrit 41.4 % (36.0-45.0); Hemoglobin 13.6 g/dL (12.0-15.0); Lymphocytes % 32.3 % (15.3-44.8); MCH 34.6 pg (27.0-35.0); MCHC 32.8 g/dL (32.0-36.0); MCV 105.3 fL (80-100); MPV 9.5 fL (7.6-11.3); Monocytes % 9.6 % (3.3-12.3); Neutrophils % 52.2 % (41.7-73.7); Platelets 137 thou/uL (152-406); RBC Red Blood Cell Count 3.93 M/uL (3.86-4.86); Red Cell Distribution Width 15.5 % (12.1-15.2)
[2024-01-06 10:03] LABS: Blood Morphology Comment NOTED (NOT SEEN); Macrocytosis 1+; Platelet Estimate DECR; White Blood Cell Scan OK (OK)
[2024-01-07] MEDS ORDERED: Ringers Lactate 0 ML IV ONE (06:28)
[2024-01-07] MEDS ORDERED: NA CHLORIDE 0.9% 500 ML ONE (06:34)
[2024-01-07] MEDS ORDERED: SUCCINYLCHOLINE 20 MG/ML (10 ML) IV ONE (07:12)
[2024-01-07] MEDS ORDERED: propofoL 200 MG/20 ML VIAL IV ONE (07:14)
[2024-01-07] MEDS ORDERED: LIDOCAINE 1% MPF 5 ML VIAL ONE (07:14)
[2024-01-07 09:00] VITALS: O2SAT 98
[2024-01-07 09:02] VITALS: BP 116/50; TEMP 98
--- NOTE | 2024-01-07 13:00 | EKG ---
Test Date: 2024-01-06 Test Time: 08:40:42 Hat Liner: MYLENE MEASUREMENT RESULTS: Intervals: Rate: 58 VT: 136 QRSD: 90 QT: 438 QTc: 429 [place]: P: 77 VT: 136 QRS: 75 T: 64 INTERPRETIVE STATEMENTS: Sinus bradycardia Otherwise normal ECG Compared to ECG 11/11/2022 09:19:27 Short VT interval no longer present Left ventricular hypertrophy no longer present Electronically Signed On 01-07-24 12:55:11 CDT by Niles Castillo
== END 2024-01-07 08:30 | disposition home or self-care (01) ==
LOC: OR 06:13
PROVIDERS: ATTEND Surgery
PROC: 0DBK8ZX Excision of Ascending Colon, Via Natural or Artificial Opening Endoscopic, Diagnostic (ICD-10-PCS; principal; 2024-01-07 07:30)
DX: Z12.11 Encounter for screening for malignant neoplasm of colon (principal); D12.2 Benign neoplasm of ascending colon; K63.5 Polyp of colon; K64.4 Residual hemorrhoidal skin tags; K64.8 Other hemorrhoids
CPT/HCPCS: 45384; 93005; 85025; 80048; 36415; 88305; J2704; J2001; J7040; J7120

== ENCOUNTER 2024-01-21 08:39 | Day surgery (SDC) | payer OTHER ==
--- NOTE | 2024-01-20 09:34 | RAD REPORT ---
Procedure: Chest Pa And Lat (2 Views) HISTORY: Preop for mass removal. COMPARISON: 2022 FINDINGS: The lungs appear clear of acute infiltrate. No significant pleural effusion noted. The heart is normal size. IMPRESSION: No acute abnormality is displayed.
[2024-01-21] MEDS ORDERED: propofoL 200 MG/20 ML VIAL IV ONE (08:48)
[2024-01-21] MEDS ORDERED: ONDANSETRON 4 MG/2 ML VIAL ONE (08:48)
[2024-01-21] MEDS ORDERED: LIDOCAINE 2% MPF 5 ML VIAL ONE (08:49)
[2024-01-21] MEDS ORDERED: FENTANYL CITR 100 MCG/2 ML ONE (08:49)
[2024-01-21] MEDS ORDERED: MIDAZOLAM HCL 2 MG/2 ML INJ ONE (08:49)
[2024-01-21] MEDS: NA CHLORIDE 0.9% 500 ML ONE (09:15)
[2024-01-21] MEDS: CIPROFLOXACIN 400mg IV 400 MG/200 ML BAG IV ONE (09:44)
[2024-01-21] MEDS ORDERED: EPHEDRINE SULF 50 MG/ML VIAL ONE (10:11)
[2024-01-21] MEDS ORDERED: dexAMETHasone 4 MG/ML VIAL ONE (10:27)
[2024-01-21 10:57] VITALS: O2SAT 100
--- NOTE | 2024-01-21 10:57 | P.BOP ---
Preoperative diagnosis: Left elbow tender subQ mass Postoperative diagnosis: same Primary procedure: Excisional biopsy of tender Left elbow tender subQ mass 4x4 cm Estimated blood loss: <10cc Specimen: mass Findings: mass Anesthesia: General Complications: None Transferred to: Recovery Room Condition: Good
[2024-01-21] MEDS: TRAMADOL 37.5mg/APAP 325mg PER TAB ONE (11:44)
[2024-01-21 12:33] VITALS: BP 125/48; TEMP 96.8
--- NOTE | 2024-01-21 12:48 | OP ---
Date of Procedure: 01/21/2024 Surgeon: Adryan Lantigua MD Preoperative Diagnosis: Multilobulated left elbow tender subcutaneous mass. Postoperative Diagnosis: Multilobulated left elbow tender subcutaneous mass. Procedure: Excisional biopsy of tender multilobulated left elbow tender mass subcu, 4 x 4 cm. Estimated Blood Loss: Less than 10 cc. Specimen: Mass. Findings: Multicystic, lobulated mass. Anesthesia: General plus local. Complications: None. Indications: This is a case of a 68-year-old patient who came to us with a mass in the elbow. It is multilobulated and thick, minimal fluctuance, tender. It is increasing in size fast. She wants charmaine t excised. She does not recall any trauma in that region or any synovial issues or bursa issues. Yamilet mayer also have a left AV fistula for hemodialysis due to renal failure on that same left arm and the upp er arm area. The area of concern was marked by me and the patient in the holding room. The benefits , alternatives, and risks of excision fully explained, which include, but not limited to, infection, bleeding, damage to adjacent structures, anesthesia complication, recurrence, [place], and even . Yamilet mayer also understands this may not relieve any symptoms. She might need more than one surgical interven tion. She understood, signed a consent. The area of concern was marked. Description Of Procedure: Patient was brought to the operating room, placed in supine position. Ane sthesia was induced without complication. A time-out was called. Left elbow was prepped and draped in a sterile fashion. Local anesthesia was applied followed by wedge incision on the skin. This ski n had to be removed also because it was attached to the mass itself. We noticed it to be a multicyst ic. It looked like an inclusion cyst with multiple lobulations. The fluid inside is viscous and carolyn esy. It is not even liquid anymore and does not look like synovial fluid, does not look like a bursi tis. It looked like an inclusion cyst with multiple lobulations. So we removed that completely and irrigated subcutaneous tissue, obtained hemostasis, obtained local anesthetic and then closed the sub cutaneous tissue with 3-0 chromic and the skin with 3-0 nylon. Sponge counts and instrument counts w ere correct. Patient tolerated the procedure well. Patient sent to Recovery in stable condition. TONEY/MODL Voice ID: [id number] Report ID: [id number]
--- NOTE | 2024-01-21 12:48 | DS ---
Diagnosis: Left elbow tender subcutaneous masses. Procedure: Excisional biopsy of tender left elbow subcutaneous masses. Disposition: Home. Activity: As tolerated. No heavy lifting. Discharge Instructions: Follow up in my office in 1 week. Call for appointment at [phone]. Keep a agusto dry for 48 hours, then may shower. LAUREL Voice ID: [id number] Report ID: [id number]
== END 2024-01-21 12:15 | disposition home or self-care (01) ==
LOC: OR 08:39
PROVIDERS: ATTEND Surgery
PROC: 0JBH0ZZ Excision of Left Lower Arm Subcutaneous Tissue and Fascia, Open Approach (ICD-10-PCS; principal; 2024-01-21 10:30)
DX: L72.0 Epidermal cyst (principal); N18.6 End stage renal disease; Z99.2 Dependence on renal dialysis
CPT/HCPCS: 88304; 71046; 11404; J2704; J1100; J2001; J3010; J2405; J0744; J7040; J2250

== ENCOUNTER 2024-06-02 04:51 | Emergency (ER) | payer OTHER ==
[2024-06-02 05:19] LABS: Absolute Basophils 0.1 K/uL (0-0.5); Absolute Eosinophils 0.3 K/uL (0-0.5); Absolute Lymphocytes (CBC) 2.4 K/uL (0.7-4.9); Absolute Monocytes 0.5 K/uL (0.1-1.3); Absolute Neutrophil 5.6 K/uL (1.8-8.0); Basophils % 0.7 % (0-1.3); Eosinophils % 3.9 % (0-4.4); Hematocrit 41.1 % (36.0-45.0); Hemoglobin 13.7 g/dL (12.0-15.0); Lymphocytes % 26.7 % (15.3-44.8); MCH 34.5 pg (27.0-35.0); MCHC 33.2 g/dL (32.0-36.0); MPV 9.8 fL (7.6-11.3); Neutrophils % 62.7 % (41.7-73.7); Nucleated Red Blood Cells % 0.1 % (0-0); Platelets 123 thou/uL (152-406); RBC Red Blood Cell Count 3.96 M/uL (3.86-4.86); Red Cell Distribution Width 14.4 % (12.1-15.2)
[2024-06-02 05:40] LABS: Influenza A Ag Negative; Influenza B Ag Negative; SARS-CoV-2 Antigen Rapid Res Negative (Negative)
[2024-06-02 05:57] LABS: Bilirubin Total 0.6 mg/dL (0.2-1.0)
--- NOTE | 2024-06-02 06:37 | RAD REPORT ---
EXAM DESCRIPTION: Abdomen Pelvis Wo Contrast CLINICAL HISTORY: ABD PAIN COMPARISON: March 11, 2022 TECHNIQUE: Contiguous axial sections of the abdomen and pelvis were obtained without intravenous contrast. This exam was performed according to our departmental dose-optimization program, which includes automated exposure control, adjustment of the mA and/or kV according to patient size and/or use of it erative reconstruction technique. FINDINGS: Lower Chest: The imaged lung bases are clear. No pleural or pericardial effusion. Organs: The liver demonstrates progressive enlargement of a right hepatic cyst measuring 5.5 cm previ ously 4.7 cm. The gallbladder has been resected. The spleen, pancreas, and adrenal glands are intact. The kidneys demonstrate bilateral simple cyst requiring no follow-up evaluation. GI/Bowel: There are no findings of small bowel obstruction. No acute bowel wall inflammatory changes. The appendix is normal. There are scattered colonic diverticula without associated inflammatory change. Pelvis: The bladder is normal. The rectum is normal. No pelvic free fluid. No pelvic lymphadenopathy. Peritoneum/Retroperitoneum: No intraperitoneal free air. No intraperitoneal free fluid. No mesenteric or retroperitoneal lymphadenopathy. Atherosclerotic changes throughout the abdomen and pelvis the seventh rib on the left common iliac artery. Bones/Soft Tissues: There are no suspicious-appearing lytic or blastic osseous lesions. Stable trabec ular and cortical thickening of the right ilium which may reflect sequela of Paget's disease. IMPRESSION: 1. Diverticulosis. 2. Cholecystectomy. RECOMMENDATIONS: Electronically signed by: Zac Lala MD 06/02/2024 06:32 AM [facility] Due to temporary technical issues with the PACS/Digital H2O reporting system, reports are being francisco d by the in-house radiologist without review as a courtesy to ensure prompt reporting the interpreting radiologist is fully responsible for the content of the report. Transcribed Date/Time: 06/02/2024 6:37 AM
--- NOTE | 2024-06-02 06:39 | ER ---
Nurse's Notes [facility] Name: Dawn Rolle Age: 68 yrs Sex: Female : 1955 Arrival Date: 06/02/2024 Time: 04:51 Bed 8 Private MD: Diagnosis: Nausea with vomiting, unspecified Presentation: 06/02 04:53 Chief complaint: Patient states: N/V/D with upper right abdominal pain onset 0230. 4 MG lg3 Zofran administered by EMS REGISTERED NURSE MIDWIFE. Coronavirus screen: Client denies travel out of the [place] in the last 14 days. At this time, the client does not indicate any symptoms associated with coronavirus-19. Ebola Screen: No symptoms or risks identified at this time. Initial Sepsis Screen: Does the patient meet any 2 criteria? No. Patient's initial sepsis screen is negative. Does the patient have a suspected source of infection? No. Patient's initial sepsis screen is negative. Risk Assessment: Do you want to hurt yourself or someone else? Patient reports no desire to harm self or others. Onset of symptoms was June 02, 2024. 04:53 Method Of Arrival: EMS: [facility] lg3 04:53 Acuity: MECCA 3 lg3 Triage Assessment: 04:55 General: Appears in no apparent distress. uncomfortable, Behavior is calm, cooperative. lg3 Pain: Complains of pain in right upper quadrant Pain does not radiate. Pain currently is 4 out of 10 on a pain scale. EENT: No deficits noted. No signs and/or symptoms were reported regarding the EENT system. Neuro: No deficits noted. Whitney Agitation-Sedation Scale (RASS): 0 - Alert and Calm Level of Consciousness is awake, alert, obeys commands, Oriented to person, place, time, situation. Cardiovascular: No deficits noted. Denies chest pain, shortness of breath, Capillary refill < 3 seconds Clubbing of nail beds is absent JVD is absent Patient's skin is warm and dry. Respiratory: No deficits noted. Airway is patent Respiratory effort is even, unlabored, Respiratory pattern is regular, symmetrical. GI: Abdomen is round non-distended, Reports upper abdominal pain, nausea, vomiting. : No signs and/or symptoms were reported regarding the genitourinary system. Derm: No deficits noted. No signs and/or symptoms reported regarding the dermatologic system. Skin is intact, is healthy with good turgor, Skin is dry, Skin is normal, Skin temperature is warm. Musculoskeletal: No deficits noted. No signs and/or symptoms reported regarding the musculoskeletal system. Circulation, motion, and sensation intact. Range of motion: intact in all extremities. Historical: - Allergies: 04:55 Codeine; lg3 04:55 Morphine; lg3 04:55 PENICILLINS; lg3 - Home Meds: 04:55 Unable to obtain [Active]; lg3 - PMHx: 04:55 Dialysis M-W-T; ESRD; Hypertension; kidney disease; Kidney stones; Leukemia; lg3 - PSHx: 04:55 Cholecystectomy; fistula left upper arm; Total abdominal hysterectomy; lg3 - Immunization history:: Adult Immunizations up to date. - Infectious Disease History:: Denies. - Social history:: Smoking status: Patient reports the use of cigarette tobacco products, smokes one-half pack cigarettes per day, Patient/guardian denies using alcohol, street drugs. Screenin:57 [facility] ED Fall Risk Assessment (Adult) History of falling in the last 3 months, lg3 including since admission No falls in past 3 months (0 pts) Confusion or Disorientation No (0 pts) Intoxicated or Sedated No (0 pts) Impaired Gait No (0 pts) Mobility Assist Device Used No (0 pt) Altered Elimination No (0 pt) Score/Fall Risk Level 0 - 2 = Low Risk Oriented to surroundings, Maintained a safe environment, Educated pt \T\ family on fall prevention, incl call for assistance when getting out of bed, Assessed \T\ reinforced patient's understanding of fall precautions. Abuse screen: Denies threats or abuse. Denies injuries from another. Nutritional screening: No deficits noted. Tuberculosis screening: No symptoms or risk factors identified. Assessment: 04:57 General: see triage assessment. lg3 05:44 Reassessment: Patient appears in no apparent distress at this time. No changes from lg3 previously documented assessment. Patient and/or family updated on plan of care and expected duration. Pain level reassessed. Patient is alert, oriented x 3, equal unlabored respirations, skin warm/dry/pink. 06:43 Reassessment: Patient appears in no apparent distress at this time. No changes from lg3 previously documented assessment. Patient and/or family updated on plan of care and expected duration. Pain level reassessed. Patient is alert, oriented x 3, equal unlabored respirations, skin warm/dry/pink. Patient states feeling better. Patient states symptoms have improved. 06:44 GI: Bowel sounds present X 4 quads. Abd is soft X 4 quads. lg3 Vital Signs: 04:53 BP 135 / 55; Pulse 66; Resp 16 S; Temp 97.9(O); Pulse Ox 99% on R/A; Weight 56.7 kg lg3 (R); Height 5 ft. 3 in. (R); 05:44 BP 121 / 55; Pulse 58; Resp 17 S; Pulse Ox 100% on R/A; lg3 06:43 BP 129 / 57; Pulse 58; Resp 17 S; Pulse Ox 98% on R/A; lg3 04:53 Body Mass Index 22.14 (56.70 kg, 160.02 cm) lg3 ED Course: 04:52 Patient arrived in ED. jj6 04:53 Darling Pope, RN is Primary Nurse. lg3 04:53 Gordon Bean MD is Attending Physician. ec2 04:55 Triage completed. lg3 04:55 Arm band placed on right wrist. lg3 04:57 Patient has correct armband on for positive identification. Placed in gown. Bed in low lg3 position. Call light in reach. Side rails up X 1. Client placed on continuous cardiac and pulse oximetry monitoring. NIBP monitoring applied. Door closed. Noise minimized. Warm blanket given. Pillow given. 04:57 Initial lab(s) drawn, by ED staff, sent to lab. Maintain EMS IV. Dressing intact. Good lg3 blood return noted. Site clean \T\ dry. Gauge \T\ site: 20R wrist. Flushed with 10 mL NS. Patient maintains SpO2 saturation greater than 95% on room air. 05:16 CT Abd/Pelvis - Without Contrast In Process Unspecified. EDMS 06:43 No provider procedures requiring assistance completed. IV discontinued, intact, lg3 bleeding controlled, No redness/swelling at site. Pressure dressing applied. Administered Medications: No medications were administered Medication: 04:57 VIS not applicable for this client. lg3 Outcome: 06:39 Discharge ordered by . ec2 06:44 Discharged to home ambulatory, lg3 06:44 Condition: stable 06:44 Discharge instructions given to patient, Instructed on discharge instructions, follow up and referral plans. medication usage, Demonstrated understanding of instructions, follow-up care, medications, Prescriptions given X Patient left the ED. lg3 Signatures: Dispatcher [employer] Darling Grossman RN RN lg3 Holley Patino jj6 Gordon Bean MD MD ec2
--- NOTE | 2024-06-02 06:39 | EDPHYS ---
Physician Documentation [facility] Name: Dawn Rolle Age: 68 yrs Sex: Female : 1955 Arrival Date: 06/02/2024 Time: 04:51 Bed 8 Private MD: ED Physician Gordon Bean HPI: 06/02 04:54 This 68 yrs old Female presents to ER via Unassigned with complaints of ec2 Abdominal Pain, Nausea/Vomiting/Diarrhea. 04:54 Patient arrives today for evaluation of abdominal pain. Patient reports several hours ec2 ago she started with abdominal pain, reports some nausea and vomiting as well. EMS reports they gave her Zofran, patient reports improvement in symptoms after the Zofran. Otherwise reports history of cholecystectomy and hysterectomy. Patient is a dialysis patient, undergoes dialysis Friday, Friday, Friday. Missed dialysis this past Friday secondary to feeling unwell. Historical: - Allergies: 04:55 Codeine; lg3 04:55 Morphine; lg3 04:55 PENICILLINS; lg3 - Home Meds: 04:55 Unable to obtain [Active]; lg3 - PMHx: 04:55 Dialysis M-W-T; ESRD; Hypertension; kidney disease; Kidney stones; Leukemia; lg3 - PSHx: 04:55 Cholecystectomy; fistula left upper arm; Total abdominal hysterectomy; lg3 - Immunization history:: Adult Immunizations up to date. - Infectious Disease History:: Denies. - Social history:: Smoking status: Patient reports the use of cigarette tobacco products, smokes one-half pack cigarettes per day, Patient/guardian denies using alcohol, street drugs. ROS: 04:55 Constitutional: as per hpi ec2 Exam: 04:55 Constitutional: GEN: NAD Head: atraumatic Eyes: EOMI Ears: External ears are ec2 normal. CV: regular rate LUNGS: no respiratory distress ABD: non-distended, soft, nontender, not guarding, not rigid SKIN: no evidence of rashes MSK: no evidence of trauma Vital Signs: 04:53 BP 135 / 55; Pulse 66; Resp 16 S; Temp 97.9(O); Pulse Ox 99% on R/A; Weight 56.7 kg lg3 (R); Height 5 ft. 3 in. (R); 05:44 BP 121 / 55; Pulse 58; Resp 17 S; Pulse Ox 100% on R/A; lg3 06:43 BP 129 / 57; Pulse 58; Resp 17 S; Pulse Ox 98% on R/A; lg3 04:53 Body Mass Index 22.14 (56.70 kg, 160.02 cm) lg3 MDM: 04:53 Medical Screening Exam initiated ec2 04:55 Data reviewed: vital signs, nurses notes. ED course: Patient arrives today for ec2 abdominal pain and nausea and vomiting that has since resolved after antiemetic with EMS. Examination yields reassuring hemodynamics as well as reassuring abdominal exam. Will obtain lab work, CT imaging. DDx considered include processes such as gastroenteritis, gastritis, appendicitis. 06:36 ED course: CT imaging negative for any acute intra-abdominal pathology. On reassessment ec2 patient is well-appearing no acute distress. Will discharge home per return precautions given.. 06/02 04:54 Order name: CBC with Diff; Complete Time: 05:53 ec2 06/02 04:54 Order name: CMP; Complete Time: 05:59 ec2 06/02 04:54 Order name: Lipase; Complete Time: 05:59 ec2 06/02 04:55 Order name: COVID-19 Ag + Flu A+B Ag; Complete Time: 05:53 ec2 06/02 04:54 Order name: CT Abd/Pelvis - Without Contrast ec2 06/02 04:54 Order name: IV Saline Lock; Complete Time: 04:58 ec2 06/02 04:54 Order name: Labs collected and sent; Complete Time: 05:03 ec2 Administered Medications: No medications were administered Disposition Summary: 06/02/24 06:39 Discharge Ordered Notes: Location: Home ec2 Condition: Stable ec2 Diagnosis - Nausea with vomiting, unspecified ec2 Followup: ec2 - With: Private Physician - When: - Reason: Re-evaluation by your physician Discharge Instructions: - Discharge Summary Sheet ec2 - Nausea and Vomiting, Adult ec2 Forms: - Medication Reconciliation Form ec2 - Antibiotic Education ec2 - Prescription Opioid Use ec2 - Patient Portal Instructions ec2 - Leadership Thank You Letter ec2 Prescriptions: - Zofran 4 mg Oral Tablet - take 1 tablet ORAL route every 12 hours As needed; 20 tablet; Refills: 0, ec2 Product Selection Permitted Signatures: Dispatcher [employer] EDMS Able, Darling, RN RN lg3 Gordon Bean MD MD ec2 Corrections: (The following items were deleted from the chart) 04:55 04:55 COVID-19 Ag + Flu A+B [id number] ordered. DEB BOYD
[2024-06-02 06:56] VITALS: TEMP 97.9
[2024-06-02 06:59] VITALS: BP 129/57; O2SAT 98
== END 2024-06-02 06:44 | disposition home or self-care (01) ==
LOC: ER 04:51
DX: R11.2 Nausea with vomiting, unspecified (principal); R10.9 Unspecified abdominal pain; F17.210 Nicotine dependence, cigarettes, uncomplicated; I12.0 Hypertensive chronic kidney disease with stage 5 chronic kidney disease or end stage renal disease; N18.6 End stage renal disease; Z99.2 Dependence on renal dialysis; Z11.52 Encounter for screening for COVID-19
CPT/HCPCS: 36415; 74176; 80053; 83690; 85025; 87428; 99284